=== PATIENT | female | born 1945 | race Caucasian/White ===

== ENCOUNTER → 2016-10-02 | Outpatient (CLI) | payer OTHER ==
[2016-10-02 13:52] LABS: BASO % 0.8 %; BASO ABS # 0.04 K/uL (0-0.2); COMPLETE YES; EOS % 1.1 %; LYMPH ABS # 1.49 K/uL (1.2-3.4); MEAN CELL VOLUME 91.1 fL (80-100); MEAN CORPUSCULAR HEMOGLOBIN 29.1 pg (25-34); MEAN PLATELET VOLUME 10.4 fL (7.4-10.4); MONO % 8.6 %; NEUT % 61.5 %; PLATELET COUNT 296 K/uL (130-400); WHITE BLOOD COUNT 5.33 K/uL (4.8-10.8)
[2016-10-02 14:58] LABS: ALT/SGPT 33 U/L (12-78); AST/SGOT 22 U/L (15-37); BLOOD UREA NITROGEN 16 mg/dl (7-18); BUN/CREATININE RATIO 20.8 (10-20); CALCIUM 9.3 mg/dl (8.5-10.1); CARBON DIOXIDE 26 mmol/L (21-32); CHLORIDE 107 mmol/L (98-107); CREATININE 0.77 mg/dl (0.60-1.20); GLUCOSE 101 mg/dl (70-99); POTASSIUM 3.8 mmol/L (3.5-5.1); SODIUM 142 mmol/L (136-145)
[2016-10-02 15:01] LABS: ALKALINE PHOSPHATASE 85 U/L (45-117); CHOLESTEROL 156 mg/dl (0-200); CHOLESTEROL/HDL RATIO 2.9; HDL CHOLESTEROL 53 mg/dl; LDL CHOLESTEROL CALCULATED 84 mg/dl; TRIGLYCERIDES 95 mg/dl (0-150); VERY LOW DENSITY LIPOPROT CALC 19 mg/dl
== END | disposition home or self-care (01) ==
LOC: C.LABMFLN 10:29
PROVIDERS: ATTEND Family Medicine
DX: E11.59 Type 2 diabetes mellitus with other circulatory complications (principal); E78.5 Hyperlipidemia, unspecified; I10 Essential (primary) hypertension

== ENCOUNTER → 2016-11-22 | Outpatient (CLI) | payer OTHER | END | disposition home or self-care (01) | LOC: C.LABMFLN 11:27 | PROVIDERS: ATTEND Family Medicine | DX: R35.0 Frequency of micturition (principal) ==

== ENCOUNTER 2019-10-07 07:49 | Inpatient (IN) ==
[2019-10-07] MEDS: HYDROmorphone INJ 0.5 MG/0.5 ML SYR IV PRN ×4 (08:17→20:01)
[2019-10-07] MEDS ORDERED: ONDANSETRON INJ 2 MG/ML 2 ML VIAL IV STA (08:26)
[2019-10-07 08:31] LABS: Basophils # (auto) 0.06 K/uL (0-0.2); Basophils % (auto) 0.6 %; Eosinophils % (auto) 1.9 %; Hematocrit (blood only) 37.8 % (37-47); Hemoglobin 12.6 g/dL (12.0-16.0); Immature Granulocytes # (auto) 0.12 K/uL (0.00-0.02); Immature Granulocytes % (auto) 1.2 %; Lymphocytes # (auto) 2.53 K/uL (1.2-3.4); Lymphocytes % (auto) 24.3 %; Mean Corpuscular Hemoglobin 30.7 pg (25-34); Mean Corpuscular Hgb Conc 33.3 g/dL (32-36); Mean Platelet Volume 10.1 fL (7.4-10.4); Monocytes # (auto) 0.72 K/uL (0.11-0.59); Monocytes % (auto) 6.9 %; Neutrophils # (auto) 6.78 K/uL (1.4-6.5); Neutrophils % (auto) 65.1 %; Platelet Count 372 K/uL (130-400); RDW Coefficient of Variation 13.9 % (11.5-14.5); RDW Standard Deviation 46.2 fL (36.4-46.3); Red Blood Count 4.11 M/uL (4.2-5.4); White Blood Count 10.41 K/uL (4.8-10.8)
[2019-10-07 08:41] LABS: INR 0.9 (0.9-1.1); Partial Thromboplastin Ratio 0.8; Partial Thromboplastin Time 23.4 Seconds (21.0-31.0)
[2019-10-07 08:48] LABS: BUN Creatinine Ratio 23.4 (10-20); Calcium 9.7 mg/dl (8.5-10.1); Creatinine Clr Calc Pharmacy 61.8 ml/min; Est GFR (African American) 90.8; Est GFR (Non-African American) 78.4; Potassium 4.3 mmol/L (3.5-5.1)
[2019-10-07 08:49] LABS: Appearance Urine Cloudy (Clear); Bilirubin Urine Negative (Negative); Blood Urine Negative (Negative); Color Urine Yellow; Glucose Urine UA Negative (Negative); Ketones Urine Negative (Negative); Leukocyte Esterase Urine 3+ (Negative); Nitrite Urine Negative (Negative); Protein Urine Negative (Negative); Specific Gravity Urine 1.017 (1.000-1.030); Urobilinogen Urine Negative (Negative); WBC Urine Automated >30 /hpf (0-5)
[2019-10-07] MEDS ORDERED: METOCLOPRAMIDE HCL INJ 5 MG/ML 2 ML VIAL IV STA (08:50)
[2019-10-07] MEDS ORDERED: ACETAMINOPHEN 1,000 MG/100 ML VIAL IV STA (08:50)
[2019-10-07 09:19] LABS: Bacteria Urine Automated 1+ (Negative); Epithelial Cell Urine Auto 20-30 /lpf (0-5); Mucus Urine Present (None Prsent)
--- NOTE | 2019-10-07 09:23 | XRay Report ---
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 There is an acute proximal left fem ur fracture as below. Chondrocalcinosis of the hips and pubic symphysis. Demineralized appearance of the bones. The bony pelvis appears intact. FEMUR: There is an acute intertrochanteric fracture of the left femur with comminution and fracture separati on measuring up to 10 mm. There is mild impaction with minimal apex superolateral angulation. Moderat e soft tissue swelling. The mid and distal femur appears intact. Osteoarthritis and chondrocalcinosis of the knee. Arterial calcifications. IMPRESSION: Acute comminuted and slightly displaced intratrochanteric fracture of the left femur. ACT 112: Negative or not required by law. The above report was generated using voice recognition software. It may contain grammatical, syntax o r spelling errors. Electronically signed by: Errol Salcedo M.D. 10/07/2019 9:22 AM
[2019-10-07] MEDS ORDERED: PROMETHAZINE HCL 12.5 MG in SODIUM CHLORIDE 0.9% 50 ML IV STA (09:38)
[2019-10-07] MEDS ORDERED: bisacodyL 10 MG SUPP PR PRN (09:43)
[2019-10-07] MEDS ORDERED: MoRPHine SULFATE 4 MG/ML 1 ML CARP\\VIAL IV PRN (09:43)
[2019-10-07] MEDS ORDERED: ONDANSETRON INJ 2 MG/ML 2 ML VIAL IV PRN (09:43)
[2019-10-07] MEDS ORDERED: PROMETHAZINE 12.5 MG/50.5 ML NSS IV ONE (09:43)
[2019-10-07] MEDS ORDERED: NALOXONE HCL 0.4 MG/1 ML VIAL/CARP IV PRN (09:43)
[2019-10-07] MEDS ORDERED: MAGNESIUM HYDROXIDE SUSP 30 ML UDC PO PRN (09:43)
[2019-10-07] MEDS ORDERED: ALBUTEROL HFA 8 GM INHALER INH PRN (09:51)
--- NOTE | 2019-10-07 10:08 | History & Physical Report ---
Date of Service October 07, 2019 Assessment & Plan (1) Closed left femoral fracture: -Admit to med surg with tele -Pt has been off plavix for 1 week per dc summary from [facility] to have stopped on 09/29 to complete 21 days. Hold subcu heparin as she was on this at [facility]. -Continue baby aspirin -Hip fracture order set completed -Ortho consult, Dr. Obrien -Allow diet today, do not anticipate surgery, make n.p.o. after midnight -Pain management, bowel regimen ordered -PT/OT consults to be placed after surgery -Follow am CBC to monitor for acute blood loss (2) History of CVA with residual deficit: -Occurred on 09/09/2019 -Continue baby aspirin for now -Left-sided residual deficit, using walker for ambulation, will require PT/OT after surgery (3) Hypertension: -Continue losartan 75 mg daily, first dose now as did not get morning meds (4) Hyperlipidemia: -Continue statin therapy (5) Osteopenia: -Check vitamin D level (6) Asthma: -Continue Symbicort, Breo fluticasone nasal spray (7) Anxiety: -Continue Lexapro 10 mg daily as well as lorazepam for anxiety as per [employer] meds (8) DVT prophylaxis: -SCDs, teds on unaffected leg CODE STATUS: Full code Disposition: Patient from [facility], likely to remain in the hospital x2 days, will need placement for rehab upon discharge History of Present Illness Primary Care Provider: [facility] This is a 74 yo F with PMHx of HTN, HLD, embolic stroke on 09/09/2019 involving left supraclinoid ICA, who presented with lightheadedness and bilateral leg weakness to [facility]. She was placed on heparin subcu, Plavix x21 days and baby aspirin for life on discharge which was 09/13/2019. She finished Plavix on 09/30/2019 per discharge summary from OSH. She had a residual left lower extremity weakness. Has been ambulating with a walker doing well with PT/OT at [facility]. This morning, pt was getting ready to go home today packing her things when she missed stepped and went down onto her left side and broke the left femur. She denies any LOC, lightheadedness, dizziness, did not injure any other part of her body or hit her head. Allergies Allergy/AdvReac Type Severity Reaction Status Date / Time celecoxib [From Celebrex] Allergy Verified 10/07/19 08:15 Home Medications Home Medications Medication Instructions Recorded Confirmed Type budesonide-formoterol HFA 160 2 puffs INH BID #10.2 gm 10/09/18 10/07/19 Rx mcg-4.5 mcg/actuation aerosol inhaler atorvastatin 40 mg tablet 40 mg PO DAILY #90 tab 06/23/19 10/07/19 Rx acetaminophen 325 mg PO QID 10/07/19 10/07/19 History albuterol sulfate 1 puffs INHALATION Q4H PRN 10/07/19 10/07/19 History aspirin 81 mg PO QAM 10/07/19 10/07/19 History bisacodyl 10 mg WV DAILY PRN 10/07/19 10/07/19 History docusate sodium 100 mg PO BID PRN 10/07/19 10/07/19 History escitalopram oxalate 10 mg PO DAILY 10/07/19 10/07/19 History fluticasone furoate-vilanterol 1 inh INHALATION DAILY 10/07/19 10/07/19 History [Breo Ellipta] fluticasone propionate [Flonase 2 spray INTRANASAL DAILY 10/07/19 10/07/19 History Allergy Relief] heparin (porcine) 5,000 unit SUBCUT Q8H 10/07/19 10/07/19 History loperamide 2 mg PO Q2H PRN 10/07/19 10/07/19 History lorazepam 0.5 mg PO TID PRN 10/07/19 10/07/19 History lorazepam 1 mg PO HS PRN 10/07/19 10/07/19 History losartan [Cozaar] 75 mg PO DAILY 10/07/19 10/07/19 History meclizine 25 mg PO TID PRN 10/07/19 10/07/19 History melatonin 3 mg PO HS 10/07/19 10/07/19 History oxycodone 5 mg PO ONCE 10/07/19 10/07/19 History polyethylene glycol 3350 [Miralax] 17 g PO QDL PRN 10/07/19 10/07/19 History potassium chloride 20 meq PO BID 10/07/19 10/07/19 History sennosides-docusate sodium 1 tab-cap PO QDL PRN 10/07/19 10/07/19 History [Senokot-S] sodium phosphates [Fleet Enema] 133 ml W[place] DAILY PRN 10/07/19 10/07/19 History Past Med/Surg History Medical History Asthma (Chronic) Benign colonic polyp (Chronic) Cystocele, midline (Chronic) Disc degeneration, lumbar (Chronic) Hyperlipidemia (Chronic) Hypertension (Chronic) Osteopenia (Chronic) Surgical History History of tooth extraction S/P colonoscopy Family History Mother Diabetes Hypertension Myocardial infarction Sister Diabetes Denies family history of Ovarian cancer Prostate cancer Breast cancer Colorectal cancer Social History Preferred Language: Macanese Communication Ability: Effective Visual Impairment: Partially Limited Hearing Ability: Normal Baseball Hand Sewer Required: No Beliefs That Will Affect Care: None marital status: Current Living Situation: Rehab Current Living Situation Comment: [facility] current occupational status: retired Other Information That Helps Us Care for You: No Feels Safe at Home: Yes Safety Concerns: Feels Safe At This Time Smoking Status: Never smoker Second Hand Exposure: Yes ; Hx Alcohol Use: Yes Alcohol type: wine Alcohol Intake Frequency: Holidays/Sp ecial Occasions Hx Substance Use: No Childhood Exposure to Second-Hand Smoke: Yes caffeine: Yes (coffee, diet soda) during the past year weight has: remained stable Dental Care, Regularly: Yes Physical Activity Frequency: Daily Seatbelt Use: always Sunscreen Use: Yes Do you think of yourself as: straight/heterosexual Review of Systems Review of Systems: Constitutional: No fever, sweats or chills Eyes: No diplopia, no worsening or blurred vision ENT: normal hearing, no trouble swallowing Respiratory: No cough, sputum, dyspnea at rest or on exertion Cardiovascular: No chest pain, tightness or palpitations Abdomen: No pain, + nausea, no vomiting, diarrhea or constipation Musculoskeletal: No joint pain, calf pain, swelling Neurologic: No weakness, numbness/tingling, or balance problems Psychiatric: No anxiety or depression Skin: No rash or itch Physical Exam Physical Exam: General: awake, alert, no apparent distress Head: Normocephalic, atraumatic ENT: PERRL, EOMI, no pharyngeal exudate, mucous membranes moist Chest: Clear to auscultation, on room air, no adventitious breath sounds Cardiac: Regular rate and rhythm, no murmur, no JVD, normal peripheral pulses, good capillary refill Abdominal: NABS x 4 quadrants, soft, nondistended, nontender to palpation, no rebound, guarding or tenderness Extremities: RLE shortened and externally rotated, area of ecchymosis over the left knee appears old, no peripheral edema or erythema, calfs nontender to palpation Psych: Normal mood and affect Neuro: AAO x 3, strength intact bilaterally in upper extremities and rated 5/5, can wiggle toes, no gross motor deficits, speech is clear, no peripheral sensory deficits Skin: no rash or erythema Results & Data Results & Data ([facility]) Vital Signs (Past 12 Hours) Vital Signs Temp Pulse Resp BP Pulse Ox 10/07/19 10:00 96 H 21 179/75 H 98 10/07/19 09:30 100 H 15 181/88 H 93 10/07/19 09:03 76 17 168/90 H 95 10/07/19 09:00 90 19 189/77 H 95 10/07/19 08:40 84 17 180/76 H 96 10/07/19 08:30 78 16 179/67 H 92 10/07/19 07:55 37.0 C 79 18 188/77 H 97 Diagnostic Findings XR pelvis 1-2V routine, XR femur LT 2V routine HISTORY: 74 years-old Female Pt c/o left hip fracture acute left hip pain with fracture COMPARISON: None TECHNIQUE: AP view of the pelvis with 2 views of the left femur FINDINGS: PELVIS: 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 There is an acute proximal left femur fracture as below. Chondrocalcinosis of the hips and pubic symphysis. Demineralized appearance of the bones. The bony pelvis appears intact. FEMUR: There is an acute intertrochanteric fracture of the left femur with comminution and fracture separation measuring up to 10 mm. There is mild impaction with minimal apex superolateral angulation. Moderate soft tissue swelling. The mid and distal femur appears intact. Osteoarthritis and chondrocalcinosis of the knee. Arterial calcifications. IMPRESSION: Acute comminuted and slightly displaced intratrochanteric fracture of the left femur. ECG Additional Comments: 07-OCT-2019 08:07:43 [facility]-EDSTAT ROUTINE RETRIEVAL Poor data quality, interpretation may be adversely affected Normal sinus rhythm Normal ECG No previous ECGs available 25mm/s 10mm/mV 150Hz 9.0.9 12SL 241 KIMBERLEE: 10 Referred by: ED Unconfirmed Vent. rate 79 BPM WV interval 144 ms QRS duration 88 ms QT/QTc 372/426 ms P-R-T axes 77 29 46 Code Status & VTE Plan Code Status Full code-discussed with the patient at bedside VTE Prophylaxis Plan VTE Prophylaxis will be ordered: Yes Supervising Physician Co-Signing Physician Notes Attending Attestation and Admission Note: Pt seen/examined, chart reviewed, admission care plan d/w BILLIE De La Paz. I agree w/ the chaney components of her admission documentation except -- stroke was thrombotic and was right frontal-parietal region based on records from [facility] and [facility]. 74yo female with recent stroke leading to left arm/left leg weakness - now with mild residual left leg weakness - rehabbing at [facility] post-stroke. Was preparing for d/c to home from [facility] today. Had accidental fall with resulting left hip fracture. During my assessment only c/o severe left hip pain. PMH, PSH, allergies, meds, sochx, famhx - reviewed VSS stable but BPs elevated gen - looks uncomfortable due to pain but able to answer questions neck - no JVD mouth - MM dry heart - RRR, s1 s2 lungs - CTA b/l abd - soft NT BS+ ext - left leg shortened, slightly flexed, and slightly externally rotated; no edema, pulses 2+ b/l x-rays - left hip fracture labs acceptable ua with LE and some bacteria; culture sent A/P: 1. fall with resulting left hip fracture 2. recent right sided frontal-parietal lobe stroke 3. h/o asthma 4. HTN 5. possible UTI bedrest, pain control, gentle IVF, orthopedics consult, continue asa for secondary stroke prevention low threshold for antibiotics for UTI Lj Oconnor MD PG Care Time/CCT Total # of Minutes Spent Total Time Spent with Patient: Total time spent is greater than 50% in coordination of care (as documented) at patient's floor/unit and/or counseling patient: Coding Level of Care Code 09346 Initial Inpt Care Lvl 3 Diagnoses Closed left femoral fracture S72.92XA History of CVA with residual deficit I69.30 Hypertension I10 Hyperlipidemia E78.5 Osteopenia M85.80 Asthma J45.909 Anxiety F41.9 DVT prophylaxis Z29.9
[2019-10-07] MEDS ORDERED: LOSARTAN POTASSIUM 25 MG TAB PO SCH (10:30)
--- NOTE | 2019-10-07 10:41 | XRay Report ---
SINGLE VIEW CHEST CLINICAL HISTORY: Left hip fracture. Fall. FINDINGS: An AP, portable, supine chest radiograph is obtained. No prior studies are available for co mparison at the time of dictation. The examination is degraded by portable technique and patient rota tion. The cardiomediastinal silhouette is unremarkable noting atherosclerotic calcification of the t horacic aorta. The mitral annulus is densely calcified. The lungs and pleural spaces are clear. No pn eumothorax is seen. The skeletal structures are osteopenic. The bony thorax is grossly intact. IMPRESSION: No active disease in the chest. ACT 112: Negative or not required by law. Electronically signed by: Girma Wylie M.D. 10/07/2019 10:40 AM
[2019-10-07] MEDS: LACTATED RINGER'S 1,000 ML IV SCH (13:36)
--- NOTE | 2019-10-07 13:56 | Orthopedic Consultation ---
Date of Consultation October 07, 2019 Assessment & Plan (1) Closed left femoral fracture: I had discussions about the fracture with her at bedside. She is having a lot of pain in her hip and I recommended intramedullary nail fixation. She understands the risk benefits and alternatives to procedures like to proceed. Questions were answered and consents were signed. She will be n.p.o. past midnight tonight. We will get a COVID test on her. Her subcu heparin is currently being held. Present on Admission?: Yes History of Present Illness Reason for Consultation: Left intertrochanteric hip fracture Attending Physician: Lj Oconnor History of Present Illness Marcie is a pleasant 74-year-old female who suffered an embolic stroke about 4 weeks ago. She went to [facility] in [place] and was started on multiple anticoagulation medications. She was then sent to a rehab facility. She has some residual left-sided weakness but she was ambulating with a walker. Her status was improving and she was being ready to be discharged home. She was packing her things to go home when she fell and sustained a left intertrochanteric hip fracture. She came to [facility] emergency room where radiographs confirmed the fracture. She was admitted to the medical service. Orthopedics was consulted to evaluate and treat. She normally is an independent ambulator without assistance. She lives in a house with her . Allergies Allergy/AdvReac Type Severity Reaction Status Date / Time celecoxib [From Celebrex] Allergy Verified 10/07/19 08:15 Home Medications Home Medications Medication Instructions Recorded Confirmed Type budesonide-formoterol HFA 160 2 puffs INH BID #10.2 gm 10/09/18 10/07/19 Rx mcg-4.5 mcg/actuation aerosol inhaler atorvastatin 40 mg tablet 40 mg PO DAILY #90 tab 06/23/19 10/07/19 Rx acetaminophen 325 mg PO QID 10/07/19 10/07/19 History albuterol sulfate 1 puffs INHALATION Q4H PRN 10/07/19 10/07/19 History aspirin 81 mg PO QAM 10/07/19 10/07/19 History bisacodyl 10 mg GA DAILY PRN 10/07/19 10/07/19 History docusate sodium 100 mg PO BID PRN 10/07/19 10/07/19 History escitalopram oxalate 10 mg PO DAILY 10/07/19 10/07/19 History fluticasone furoate-vilanterol 1 inh INHALATION DAILY 10/07/19 10/07/19 History [Breo Ellipta] fluticasone propionate [Flonase 2 spray INTRANASAL DAILY 10/07/19 10/07/19 History Allergy Relief] heparin (porcine) 5,000 unit SUBCUT Q8H 10/07/19 10/07/19 History loperamide 2 mg PO Q2H PRN 10/07/19 10/07/19 History lorazepam 0.5 mg PO TID PRN 10/07/19 10/07/19 History lorazepam 1 mg PO HS PRN 10/07/19 10/07/19 History losartan [Cozaar] 75 mg PO DAILY 10/07/19 10/07/19 History meclizine 25 mg PO TID PRN 10/07/19 10/07/19 History melatonin 3 mg PO HS 10/07/19 10/07/19 History oxycodone 5 mg PO ONCE 10/07/19 10/07/19 History polyethylene glycol 3350 [Miralax] 17 g PO QDL PRN 10/07/19 10/07/19 History potassium chloride 20 meq PO BID 10/07/19 10/07/19 History sennosides-docusate sodium 1 tab-cap PO QDL PRN 10/07/19 10/07/19 History [Senokot-S] sodium phosphates [Fleet Enema] 133 ml [place] DAILY PRN 10/07/19 10/07/19 History Patient History Medical History Asthma (Chronic) Benign colonic polyp (Chronic) Cystocele, midline (Chronic) Disc degeneration, lumbar (Chronic) Hyperlipidemia (Chronic) Hypertension (Chronic) Osteopenia (Chronic) Surgical History History of tooth extraction S/P colonoscopy Family History Mother Diabetes Hypertension Myocardial infarction Sister Diabetes Denies family history of Ovarian cancer Prostate cancer Breast cancer Colorectal cancer Social History Preferred Language: Turkmen Communication Ability: Effective Visual Impairment: Partially Limited Hearing Ability: Normal Auto Accessories Installer Required: No Beliefs That Will Affect Care: None marital status: Current Living Situation: Rehab Current Living Situation Comment: [facility] current occupational status: retired Other Information That Helps Us Care for You: No Feels Safe at Home: Yes Safety Concerns: Feels Safe At This Time Smoking Status: Never smoker Second Hand Exposure: Yes ; Hx Alcohol Use: Yes Alcohol type: wine Alcohol Intake Frequency: Holidays/Special Occasions Hx Substance Use: No Childhood Exposure to Second-Hand Smoke: Yes caffeine: Yes (coffee, diet soda) during the past year weight has: remained stable Dental Care, Regularly: Yes Physical Activity Frequency: Daily Seatbelt Use: always Sunscreen Use: Yes Do you think of yourself as: straight/heterosexual Review of Systems Review of Systems: All systems reviewed & are unremarkable except as noted in HPI & below Physical Exam Musculoskeletal: On physical examination of the left hip, there are no abrasions lesions or lacerations of the skin. Her left leg is shortened and externally rotated. Results & Data ([facility]) Vital Signs (Past 12 Hours) Vital Signs Temp Pulse Resp BP BP BP Pulse Ox 10/07/19 13:16 37 C 20 206/80 H 189/90 H 98 10/07/19 12:45 114 H 10/07/19 12:04 105 H 17 162/89 H 96 10/07/19 11:30 104 H 17 163/66 H 93 10/07/19 11:01 100 H 15 179/69 H 91 10/07/19 10:30 107 H 15 141/64 H 92 10/07/19 10:00 96 H 21 179/75 H 98 10/07/19 09:30 100 H 15 181/88 H 93 10/07/19 09:03 76 17 168/90 H 95 10/07/19 09:00 90 19 189/77 H 95 10/07/19 08:40 84 17 180/76 H 96 10/07/19 08:30 78 16 179/67 H 92 10/07/19 07:55 37.0 C 79 18 188/77 H 97 Laboratory Results H & H 10/07/19 Range/Units 08:17 Hgb 12.6 (12.0-16.0) g/dL Hct 37.8 (37-47) % Coagulation 06//20 Range/Units 08:17 INR 0.9 (0.9-1.1) Diagnostic Findings X-rays of the left hip do show a displaced left intertrochanteric hip fracture. PG Care Time/CCT Total # of Minutes Spent Total Time Spent with Patient: Total time spent is greater than 50% in coordination of care (as documented) at patient's floor/unit and/or counseling patient: Coding Level of Care Code 13290 Inpt Consult Level 4 Diagnoses Closed left femoral fracture S72.92XA
[2019-10-07] MEDS: ACETAMINOPHEN 500 MG TAB PO SCH ×2 (13:58→21:24)
--- NOTE | 2019-10-07 14:41 | Emergency Department Note ---
History of Present Illness General Chief complaint: Fall Time Seen by Provider: 10/07/19 07:50 Source: patient, EMS, RN notes reviewed and old records reviewed Mode of arrival: EMS Limitations: no limitations History of Present Illness Provider complaint: Fall, hip pain Onset (ago): hour(s) 1 Location: pelvis Radiation: extremity Severity: moderate Pain Consistency: + constant Maximum Pain Intensity: 4 Current Pain Intensity: 4 Quality: + aching Relieved By: + immobilization Exacerbated By: + movement Associated symptoms: + denies other symptoms; no chest pain, no fever/chills, no headaches, no nausea/vomiting and no shortness of breath Treatments prior to arrival: none This is a 74-year-old female who is at her rehabilitation facility and was being discharged today. The patient reports she was getting up to change and use the bathroom when she lost her balance and fell landing on her left hip. Patient has been unable to move the hip since that time. EMS was summoned and brought the patient to the emergency department. She describes the pain as a dull ache. She has not taken anything for the pain and is requesting pain medication here. Home Medications Home Medications Medication Instructions Recorded Confirmed Type budesonide-formoterol HFA 160 2 puffs INH BID #10.2 gm 10/09/18 10/07/19 Rx mcg-4.5 mcg/actuation aerosol inhaler atorvastatin 40 mg tablet 40 mg PO DAILY #90 tab 06/23/19 10/07/19 Rx acetaminophen 325 mg PO QID 10/07/19 10/07/19 History albuterol sulfate 1 puffs INHALATION Q4H PRN 10/07/19 10/07/19 History aspirin 81 mg PO QAM 10/07/19 10/07/19 History bisacodyl 10 mg NV DAILY PRN 10/07/19 10/07/19 History docusate sodium 100 mg PO BID PRN 10/07/19 10/07/19 History escitalopram oxalate 10 mg PO DAILY 10/07/19 10/07/19 History fluticasone furoate-vilanterol 1 inh INHALATION DAILY 10/07/19 10/07/19 History [Breo Ellipta] fluticasone propionate [Flonase 2 spray INTRANASAL DAILY 10/07/19 10/07/19 History Allergy Relief] heparin (porcine) 5,000 unit SUBCUT Q8H 10/07/19 10/07/19 History loperamide 2 mg PO Q2H PRN 10/07/19 10/07/19 History lorazepam 0.5 mg PO TID PRN 10/07/19 10/07/19 History lorazepam 1 mg PO HS PRN 10/07/19 10/07/19 History losartan [Cozaar] 75 mg PO DAILY 10/07/19 10/07/19 History meclizine 25 mg PO TID PRN 10/07/19 10/07/19 History melatonin 3 mg PO HS 10/07/19 10/07/19 History oxycodone 5 mg PO ONCE 10/07/19 10/07/19 History polyethylene glycol 3350 [Miralax] 17 g PO QDL PRN 10/07/19 10/07/19 History potassium chloride 20 meq PO BID 10/07/19 10/07/19 History sennosides-docusate sodium 1 tab-cap PO QDL PRN 10/07/19 10/07/19 History [Senokot-S] sodium phosphates [Fleet Enema] 133 ml NV DAILY PRN 10/07/19 10/07/19 History Allergies Allergy/AdvReac Type Severity Reaction Status Date / Time celecoxib [From Celebrex] Allergy Verified 10/07/19 08:15 Past Med/Surg History Medical History Asthma (Chronic) Benign colonic polyp (Chronic) Cystocele, midline (Chronic) Disc degeneration, lumbar (Chronic) Hyperlipidemia (Chronic) Hypertension (Chronic) Osteopenia (Chronic) Surgical History History of tooth extraction S/P colonoscopy Status post-operative repair of hip fracture (~09/2019) Family History Mother Diabetes Hypertension Myocardial infarction Sister Diabetes Denies family history of Ovarian cancer Prostate cancer Breast cancer Colorectal cancer Social History Preferred Language: Malay Communication Ability: Effective Visual Impairment: Partially Limited Hearing Ability: Normal Jockey Room Custodian Required: No Beliefs That Will Affect Care: None marital status: Current Living Situation: Rehab Current Living Situation Comment: [facility] current occupational status: retired Other Information That Helps Us Care for You: No Feels Safe at Home: Yes Safety Concerns: Feels Safe At This Time Smoking Status: Never smoker Second Hand Exposure: Yes ; Hx Alcohol Use: Yes Alcohol type: wine Alcohol Intake Frequency: Holidays/Special Occasions Hx Substance Use: No Childhood Exposure to Second-Hand Smoke: Yes caffeine: Yes (coffee, diet soda) during the past year weight has: remained stable Dental Care, Regularly: Yes Physical Activity Frequency: Daily Seatbelt Use: always Sunscreen Use: Yes Do you think of yourself as: straight/heterosexual Review of Systems A total of 10 systems reviewed and were otherwise negative Physical Exam Vital Signs Vital Signs - 24 hr 10/07/19 07:55 10/07/19 08:30 10/07/19 08:40 Temperature 37.0 C Temperature Source Oral Pulse Rate 79 78 84 Pulse Rate from SpO2 Sensor 78 85 Pulse Rhythm Regular Respiratory Rate 18 16 17 Respiratory Effort / Characteristics Non-Labored Spontaneous Respiratory Depth Normal Respiratory Pattern Regular Blood Pressure 188/77 H 179/67 H 180/76 H Blood Pressure Mean 114 121 110 Pulse Oximetry 97 92 96 Oxygen Delivery Method Room Air Sepsis Recent Fever Within 48 Hours No Sepsis New/Unexplained Change in Mental Status No Sepsis Action Taken by Nursing No Action Required 10/07/19 09:00 10/07/19 09:03 10/07/19 09:30 Temperature Temperature Source Pulse Rate 90 76 100 H Pulse Rate from SpO2 Sensor 88 76 Pulse Rhythm Respiratory Rate 19 17 15 Respiratory Effort / Characteristics Respiratory Depth Respiratory Pattern Blood Pressure 189/77 H 168/90 H 181/88 H Blood Pressure Mean 143 115 128 Pulse Oximetry 95 95 93 Oxygen Delivery Method Sepsis Recent Fever Within 48 Hours Sepsis New/Unexplained Change in Mental Status Sepsis Action Taken by Nursing VITAL SIGNS - Vital signs and nursing notes were reviewed. GENERAL - 74-year-old female appearing stated age who is in no acute distress. Communicates well with provider and answers questions appropriately. SKIN - Without rashes. HEAD - NC/AT. EYES - PERRL with EOMI bilaterally. Sclera anicteric. Palpebral conjunctiva pink and moist with no injection noted. EARS - No deformities of external structures noted on gross examination bilaterally. No pain elicited with palpation of the tragus bilaterally. External auditory canals without discharge or otorrhea. Tympanic membranes pearly moore without retraction or bulging. No fluid or purulent material visualized behind the TM. Handle of malleus, umbo, cone of light, pars tensa/flaccid all easily visualized. NOSE - Midline and without cyanosis. No epistaxis or purulent drainage noted. Septum midline without deviation or septal hematoma noted. MOUTH/OROPHARYNX - Without perioral cyanosis. Buccal mucosa pink and moist and without leukoplakia. Tongue midline with equal elevation of palate bilaterally. No tonsillar hypertrophy, erythema, or exudates noted. dentition noted. NECK - Neck with FROM. Supple to palpation. lymphadenopathy noted. No nuchal rigidity. LUNGS - Chest wall symmetric without accessory muscle use, intercostals retractions, or central cyanosis. Normal vesicular breath sounds CTA B/L. No wheezes, rales, or rhonchi appreciated. CARDIAC - RRR with S1/S2. No murmur, rubs, or gallops appreciated. ABDOMEN - Abdominal contour without pulsations or visible masses. BS normoactive all four quadrants. No tenderness, palpable masses, hepatosplenomegaly, or ascites noted. EXTREMITIES - No clubbing or peripheral cyanosis. No pretibial edema present. +3/5 radial, posterior tibial, and dorsalis pedis pulses palpated throughout. Pt unable to move left hip NEUROLOGIC - Cranial nerves II through XII grossly intact. Sensory intact to light touch throughout. Patellar reflexes +2/4. PSYCH - A&Ox3 and cooperates fully with examiner. Pt is very pleasant and interacts well with examiner. Course Administered Medications Acetaminophen (Tylenol) 1,000 mg PO Q8H [facility] Stop: 11/06/19 13:59 Last Admin: 10/09/19 14:18 Dose: 1,000 mg Documented by: [id number] Admin: 10/09/19 06:29 Dose: 1,000 mg Documented by: [id number] Admin: 10/08/19 22:08 Dose: 1,000 mg Documented by: [id number] Admin: 10/08/19 19:27 Dose: Not Given Documented by: [id number] Admin: 10/08/19 06:22 Dose: 1,000 mg Documented by: [id number] Admin: 10/07/19 21:24 Dose: 1,000 mg Documented by: [id number] Admin: 10/07/19 13:58 Dose: Not Given Documented by: [id number] Aspirin (Ecotrin Ectab) 81 mg PO QAM [facility] Stop: 11/07/19 08:59 Last Admin: 10/09/19 09:24 Dose: 81 mg Documented by: [id number] Admin: 10/08/19 07:51 Dose: Not Given Documented by: [id number] Atorvastatin Calcium (Lipitor) 40 mg PO DAILY [facility] Stop: 11/07/19 08:59 Last Admin: 10/09/19 09:24 Dose: 40 mg Documented by: [id number] Admin: 10/08/19 07:57 Dose: 40 mg Documented by: [id number] Escitalopram Oxalate (Lexapro Tab) 10 mg PO DAILY [facility] Stop: 11/07/19 08:59 Last Admin: 10/09/19 09:25 Dose: 10 mg Documented by: [id number] Admin: 10/08/19 07:57 Dose: 10 mg Documented by: [id number] Fluticasone Propionate (Flonase) 2 sprays TASHI DAILY [facility] Stop: 11/07/19 08:59 Last Admin: 10/09/19 09:23 Dose: 2 sprays Documented by: [id number] Admin: 10/08/19 07:57 Dose: 2 sprays Documented by: [id number] Fluticasone/Vilanterol (Breo Ellipta 200/25 Mcg Inh) 1 puffs INH DAILY [facility] Stop: 11/07/19 08:59 Last Admin: 10/09/19 09:22 Dose: 1 puffs Documented by: [id number] Admin: 10/08/19 07:57 Dose: 1 puffs Documented by: [id number] Lactated Ringer's (Lr) 1,000 mls @ 80 mls/hr IV .[id number] [facility] Stop: 11/07/19 17:59 Last Admin: 10/09/19 06:29 Dose: 80 mls/hr Documented by: [id number] Infusion: 10/09/19 06:29 Dose: 80 mls/hr Documented by: [id number] Admin: 10/08/19 19:49 Dose: 80 mls/hr Documented by: [id number] Ketorolac Tromethamine (Toradol) 15 mg IV Q6H PRN PRN Reason: Pain Stop: 10/13/19 00:42 Last Admin: 10/09/19 10:00 Dose: 15 mg Documented by: [id number] Admin: 10/09/19 03:50 Dose: 15 mg Documented by: [id number] Admin: 10/08/19 20:03 Dose: 15 mg Documented by: [id number] Lorazepam (Ativan) 0.5 mg PO TID PRN PRN Reason: Anxiety Stop: 11/06/19 09:50 Last Admin: 10/09/19 09:20 Dose: 0.5 mg Documented by: [id number] Admin: 10/08/19 10:04 Dose: 0.5 mg Documented by: [id number] Lorazepam (Ativan) 1 mg PO HS PRN PRN Reason: Sleep Stop: 11/06/19 12:42 Last Admin: 10/07/19 21:24 Dose: 1 mg Documented by: [id number] Morphine Sulfate (Morphine Sulfate) 2 mg IV Q3H PRN PRN Reason: Pain Stop: 10/21/19 09:42 Last Admin: 10/09/19 00:14 Dose: 2 mg Documented by: [id number] Admin: 10/08/19 11:25 Dose: 2 mg Documented by: [id number] Admin: 10/08/19 08:13 Dose: 2 mg Documented by: [id number] Admin: 10/08/19 01:12 Dose: 2 mg Documented by: [id number] Admin: 10/07/19 22:44 Dose: 2 mg Documented by: [id number] Ondansetron HCl (Zofran) 4 mg IV Q4H PRN PRN Reason: Nausea And Vomiting Stop: 11/06/19 09:42 Last Admin: 10/07/19 20:00 Dose: 4 mg Documented by: [id number] Oxycodone HCl (Roxicodone Immediate Rel) 5 mg PO Q4H PRN PRN Reason: MODERATE Pain (Scale 4,5,6) Stop: 10/21/19 09:42 Last Admin: 10/09/19 12:31 Dose: 5 mg Documented by: [id number] Admin: 10/08/19 21:59 Dose: 5 mg Documented by: [id number] Admin: 10/08/19 09:40 Dose: 5 mg Documented by: [id number] Admin: 10/08/19 05:53 Dose: 5 mg Documented by: [id number] Admin: 10/07/19 23:19 Dose: 5 mg Documented by: [id number] Admin: 10/07/19 17:30 Dose: 5 mg Documented by: [id number] Potassium Chloride (Klor-Con M20) 20 meq PO BID [facility]UL[facility] Stop: 11/06/19 20:59 Last Admin: 10/09/19 09:20 Dose: Not Given Documented by: [id number] Admin: 10/08/19 22:06 Dose: Not Given Documented by: [id number] Admin: 10/08/19 07:50 Dose: Not Given Documented by: [id number] Admin: 10/07/19 20:03 Dose: Not Given Documented by: [id number] Senna/Docusate Sodium (Senokot S) 2 tab PO HS YULY Stop: 11/06/19 20:59 Last Admin: 10/08/19 22:05 Dose: Not Given Documented by: [id number] Admin: 10/07/19 20:03 Dose: Not Given Documented by: [id number] Discontinued Medications Bupivacaine HCl/Epinephrine Bitart (Bupivacaine 0.25%-Epi 1:[id number]) Confirm Administered Dose 30 ml .ROUTE .STK-MED ONE Stop: 10/08/19 14:43 Last Admin: 10/08/19 16:04 Dose: 20 ml Documented by: [id number] Cyclobenzaprine HCl (Flexeril) 5 mg PO ONE ONE Stop: 10/08/19 03:06 Last Admin: 10/08/19 04:02 Dose: 5 mg Documented by: [id number] Hydromorphone HCl (Dilaudid) 0.5 mg IV Q20M PRN PRN Reason: Severe Pain (Rating 7,8,9,10) Stop: 10/21/19 07:58 Last Admin: 10/07/19 20:01 Dose: 0.5 mg Documented by: [id number] Admin: 10/07/19 13:37 Dose: 0.5 mg Documented by: [id number] Admin: 10/07/19 10:46 Dose: 0.5 mg Documented by: [id number] Admin: 10/07/19 08:17 Dose: 0.5 mg Documented by: [id number] Acetaminophen (Ofirmev) 1,000 mg in 100 mls @ 400 mls/hr IV NOW STA Stop: 10/07/19 09:04 Last Infusion: 10/07/19 09:16 Dose: 0 mls/hr Documented by: [id number] Admin: 10/07/19 08:59 Dose: 400 mls/hr Documented by: [id number] Promethazine HCl 12.5 mg/ (Sodium Chloride) 50.5 mls @ 202 mls/hr IV NOW STA Stop: 10/07/19 09:52 Last Infusion: 10/07/19 10:52 Dose: 0 mls/hr Documented by: [id number] Admin: 10/07/19 09:46 Dose: 202 mls/hr Documented by: [id number] Lactated Ringer's (Lr) 1,000 mls @ 80 mls/hr IV .[id number] YULY Stop: 10/08/19 09:44 Last Infusion: 10/08/19 13:51 Dose: 0 mls/hr Documented by: [id number] Admin: 10/08/19 02:45 Dose: Not Given Documented by: [id number] Admin: 10/08/19 01:13 Dose: 80 mls/hr Documented by: [id number] Infusion: 10/08/19 01:13 Dose: 80 mls/hr Documented by: [id number] Admin: 10/07/19 13:36 Dose: 80 mls/hr Documented by: [id number] Cefazolin Sodium (Ancef 2000mg) 2,000 mg in 15 mls @ 3.75 mls/min IV PREOP ONE Stop: 10/08/19 15:52 Last Admin: 10/08/19 15:51 Dose: 3.75 mls/min Documented by: [id number] Ketorolac Tromethamine (Toradol) Confirm Administered Dose 15 mg .ROUTE .STK-MED ONE Stop: 10/08/19 01:06 Last Admin: 10/08/19 01:11 Dose: 15 mg Documented by: [id number] Losartan Potassium (Cozaar) 75 mg PO DAILY YULY Stop: 11/06/19 10:29 Last Admin: 10/07/19 14:49 Dose: Not Given Documented by: [id number] Metoclopramide HCl (Reglan) 10 mg IV NOW STA Stop: 10/07/19 08:51 Last Admin: 10/07/19 08:56 Dose: 10 mg Documented by: [id number] Morphine Sulfate (Morphine Sulfate) 2 mg IV Q2H PRN PRN Reason: Pain Stop: 10/21/19 09:42 Last Admin: 10/07/19 19:17 Dose: 2 mg Documented by: [id number] Admin: 10/07/19 16:04 Dose: 2 mg Documented by: [id number] Morphine Sulfate (Morphine Sulfate) 2 mg IV NOW STA Stop: 10/08/19 13:33 Last Admin: 10/08/19 13:36 Dose: 2 mg Documented by: [id number] Ondansetron HCl (Zofran) 4 mg IV NOW STA Stop: 10/07/19 08:27 Last Admin: 10/07/19 08:29 Dose: 4 mg Documented by: [id number] Promethazine HCl (Phenergan) Confirm Administered Dose 12.5 mg IV .STK-MED ONE Stop: 10/07/19 09:44 Last Admin: 10/07/19 09:46 Dose: Not Given Documented by: [id number] Medical Decision Making Differential Diagnosis Fracture, subluxation, dislocation, contusion, ligamentous injury, neurovascular, compartment syndrome, rhabdomyolysis, as well as other pathologies. Medical Records Attestation: I reviewed the patient's medical records. Home Medications Current Medication List: was personally reviewed by me Laboratory Data Attestation: I reviewed the patient's lab results. Result diagrams: 10/09/19 05:48 10/09/19 05:48 Lab Results 10/07/19 10/07/19 10/07/19 Range/Units 08:15 08:17 08:17 WBC 10.41 (4.8-10.8) K/uL RBC 4.11 L (4.2-5.4) M/uL Hgb 12.6 (12.0-16.0) g/dL Hct 37.8 (37-47) % MCV 92.0 (80-100) fL MCH 30.7 (25-34) pg MCHC 33.3 (32-36) g/dL RDW Std Deviation 46.2 (36.4-46.3) fL RDW Coeff of Cuco 13.9 (11.5-14.5) % Plt Count 372 (130-400) K/uL MPV 10.1 (7.4-10.4) fL Immature Gran % (Auto) 1.2 % Neut % (Auto) 65.1 % Lymph % (Auto) 24.3 % [place] % (Auto) 6.9 % Eos % (Auto) 1.9 % Baso % (Auto) 0.6 % Immature Gran # (Auto) 0.12 H (0.00-0.02) K/uL Neut # (Auto) 6.78 H (1.4-6.5) K/uL Lymph # (Auto) 2.53 (1.2-3.4) K/uL [place] # (Auto) 0.72 H (0.11-0.59) K/uL Eos # (Auto) 0.20 (0-0.5) K/uL Baso # (Auto) 0.06 (0-0.2) K/uL PT (9.0-12.0) Seconds INR (0.9-1.1) APTT (21.0-31.0) Seconds PTT Ratio Sodium (136-145) mmol/L Potassium (3.5-5.1) mmol/L Chloride (98-107) mmol/L Carbon Dioxide (21-32) mmol/L Anion Gap (3-11) BUN (7-18) mg/dl Creatinine (0.6-1.2) mg/dl Est Cr Clr Drug Dosing ml/min Est GFR ( Amer) Est GFR (Non-Af Amer) BUN/Creatinine Ratio (10-20) Glucose (70-99) mg/dl POC Glucose (70-99) mg/dl Calcium (8.5-10.1) mg/dl 25-OH Vitamin D Total (30-100) ng/ml Urine Color Yellow Urine Appearance Cloudy A (Clear) Urine pH 7.0 (4.5-7.5) Ur Specific [place] 1.017 (1.000-1.030) Urine Protein Negative (Negative) Urine Glucose (UA) Negative (Negative) Urine Ketones Negative (Negative) Urine Blood Negative (Negative) Urine Nitrite Negative (Negative) Urine Bilirubin Negative (Negative) Urine Urobilinogen Negative (Negative) Ur Leukocyte Esterase 3+ H (Negative) Urine WBC (Auto) >30 H (0-5) /hpf Urine RBC (Auto) 5-10 H (0-4) /hpf U Hyaline Cast (Auto) Not Reportable U Epithel Cells (Auto) 20-30 H (0-5) /lpf Urine Bacteria (Auto) 1+ H (Negative) Urine Mucus Present A (None Prsent) Blood Type A Positive Antibody Screen NEGATIVE 10/07/19 10/07/19 10/07/19 Range/Units 08:17 08:17 08:22 WBC (4.8-10.8) K/uL RBC (4.2-5.4) M/uL Hgb (12.0-16.0) g/dL Hct (37-47) % MCV (80-100) fL MCH (25-34) pg MCHC (32-36) g/dL RDW Std Deviation (36.4-46.3) fL RDW Coeff of Cuco (11.5-14.5) % Plt Count (130-400) K/uL MPV (7.4-10.4) fL Immature Gran % (Auto) % Neut % (Auto) % Lymph % (Auto) % [place] % (Auto) % Eos % (Auto) % Baso % (Auto) % Immature Gran # (Auto) (0.00-0.02) K/uL Neut # (Auto) (1.4-6.5) K/uL Lymph # (Auto) (1.2-3.4) K/uL [place] # (Auto) (0.11-0.59) K/uL Eos # (Auto) (0-0.5) K/uL Baso # (Auto) (0-0.2) K/uL PT 10.0 (9.0-12.0) Seconds INR 0.9 (0.9-1.1) APTT 23.4 (21.0-31.0) Seconds PTT Ratio 0.8 Sodium 137 (136-145) mmol/L Potassium 4.3 (3.5-5.1) mmol/L Chloride 104 (98-107) mmol/L Carbon Dioxide 26 (21-32) mmol/L Anion Gap 7.0 (3-11) BUN 18 (7-18) mg/dl Creatinine 0.76 (0.6-1.2) mg/dl Est Cr Clr Drug Dosing 61.8 ml/min Est GFR ( Amer) 90.8 Est GFR (Non-Af Amer) 78.4 BUN/Creatinine Ratio 23.4 H (10-20) Glucose 130 H (70-99) mg/dl POC Glucose (70-99) mg/dl Calcium 9.7 (8.5-10.1) mg/dl 25-OH Vitamin D Total 26.8 L (30-100) ng/ml Urine Color Urine Appearance (Clear) Urine pH (4.5-7.5) Ur Specific [place] (1.000-1.030) Urine Protein (Negative) Urine Glucose (UA) (Negative) Urine Ketones (Negative) Urine Blood (Negative) Urine Nitrite (Negative) Urine Bilirubin (Negative) Urine Urobilinogen (Negative) Ur Leukocyte Esterase (Negative) Urine WBC (Auto) (0-5) /hpf Urine RBC (Auto) (0-4) /hpf U Hyaline Cast (Auto) U Epithel Cells (Auto) (0-5) /lpf Urine Bacteria (Auto) (Negative) Urine Mucus (None Prsent) Blood Type Antibody Screen 10/07/19 Range/Units 08:43 WBC (4.8-10.8) K/uL RBC (4.2-5.4) M/uL Hgb (12.0-16.0) g/dL Hct (37-47) % MCV (80-100) fL MCH (25-34) pg MCHC (32-36) g/dL RDW Std Deviation (36.4-46.3) fL RDW Coeff of Cuco (11.5-14.5) % Plt Count (130-400) K/uL MPV (7.4-10.4) fL Immature Gran % (Auto) % Neut % (Auto) % Lymph % (Auto) % [place] % (Auto) % Eos % (Auto) % Baso % (Auto) % Immature Gran # (Auto) (0.00-0.02) K/uL Neut # (Auto) (1.4-6.5) K/uL Lymph # (Auto) (1.2-3.4) K/uL [place] # (Auto) (0.11-0.59) K/uL Eos # (Auto) (0-0.5) K/uL Baso # (Auto) (0-0.2) K/uL PT (9.0-12.0) Seconds INR (0.9-1.1) APTT (21.0-31.0) Seconds PTT Ratio Sodium (136-145) mmol/L Potassium (3.5-5.1) mmol/L Chloride (98-107) mmol/L Carbon Dioxide (21-32) mmol/L Anion Gap (3-11) BUN (7-18) mg/dl Creatinine (0.6-1.2) mg/dl Est Cr Clr Drug Dosing ml/min Est GFR ( Amer) Est GFR (Non-Af Amer) BUN/Creatinine Ratio (10-20) Glucose (70-99) mg/dl POC Glucose 164 H (70-99) mg/dl Calcium (8.5-10.1) mg/dl 25-OH Vitamin D Total (30-100) ng/ml Urine Color Urine Appearance (Clear) Urine pH (4.5-7.5) Ur Specific [place] (1.000-1.030) Urine Protein (Negative) Urine Glucose (UA) (Negative) Urine Ketones (Negative) Urine Blood (Negative) Urine Nitrite (Negative) Urine Bilirubin (Negative) Urine Urobilinogen (Negative) Ur Leukocyte Esterase (Negative) Urine WBC (Auto) (0-5) /hpf Urine RBC (Auto) (0-4) /hpf U Hyaline Cast (Auto) U Epithel Cells (Auto) (0-5) /lpf Urine Bacteria (Auto) (Negative) Urine Mucus (None Prsent) Blood Type Antibody Screen Imaging Data Radiologist's Impression: [place], [place] [phone] XRay Report Patient: NAIN MORAN Date: 10/07/19 MR#: [id number]: [address] [facility] Acct ID:[id number]: Date: 1945ty Zip: [place] [address] Age: 74Location: ED Sex: F Room/Bed: Att Phy:Diagnosis: FALL Aditi Phy: [facility] Date: 10/07/19 Fam Phy:Interpreting Phy: Girma Wylie MD Admit Phy: Ordering Phy: Gil Otero MD cc: ~ SINGLE VIEW CHEST CLINICAL HISTORY: Left hip fracture. Fall. FINDINGS: An AP, portable, supine chest radiograph is obtained. No prior studies are available for comparison at the time of dictation. The examination is degraded by portable technique and patient rotation. The cardiomediastinal silhouette is unremarkable noting atherosclerotic calcification of the thoracic aorta. The mitral annulus is densely calcified. The lungs and pleural spaces are clear. No pneumothorax is seen. The skeletal structures are osteopenic. The bony thorax is grossly intact. IMPRESSION: No active disease in the chest. ACT 112: Negative or not required by law. Electronically signed by: Girma Wylie M.D. 10/07/2019 10:40 AM Dictated: 10/07/19 1028 Transcribed: 10/07/[address] [facility] [place] [phone] XRay Report Patient: NAIN MORAN Date: 10/07/19 MR#: [id number]: [address] [facility] [address] Acct ID:[id number]: [facility] 1945[facility] Zip[facility] [place] [address] Age: 74Location: ED Sex: F Room/Bed: Att Phy:Diagnosis: FALL Aditi Phy: [facility] Date: 10/07/19 Fam Phy:Interpreting Phy: Anirudh Salcedo Admit Phy: Ordering Phy: Gil Otero MD cc: ~ 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 There is an acute proximal left femur fracture as below. Chondrocalcinosis of the hips and pubic symphysis. Demineralized appearance of the bones. The bony pelvis appears intact. FEMUR: There is an acute intertrochanteric fracture of the left femur with comminution and fracture separation measuring up to 10 mm. There is mild impaction with minimal apex superolateral angulation. Moderate soft tissue swelling. The mid and distal femur appears intact. Osteoarthritis and chondrocalcinosis of the knee. Arterial calcifications. IMPRESSION: Acute comminuted and slightly displaced intratrochanteric fracture of the left femur. ACT 112: Negative or not required by law. The above report was generated using voice recognition software. It may contain grammatical, syntax or spelling errors. Electronically signed by: Errol Salcedo M.D. 10/07/2019 9:22 AM Dictated: 10/07/19 0915 [place], [place] [phone] XRay Report Patient: NAIN MORAN Date: 10/07/19 MR#: [id number]: [address] [facility] Acct ID:[id number]: Date: 1945City Zip: [place] [address] Age: 74Location: ED Sex: F Room/Bed: Att Phy:Diagnosis: FALL Aditi Phy: [facility] Date: 10/07/19 Fam Phy:Interpreting Phy: Anirudh Salcedo Admit Phy: Ordering Phy: Gil Otero MD cc: ~ 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 There is an acute proximal left femur fracture as below. Chondrocalcinosis of the hips and pubic symphysis. Demineralized appearance of the bones. The bony pelvis appears intact. FEMUR: There is an acute intertrochanteric fracture of the left femur with comminution and fracture separation measuring up to 10 mm. There is mild impaction with minimal apex superolateral angulation. Moderate soft tissue swelling. The mid and distal femur appears intact. Osteoarthritis and chondrocalcinosis of the knee. Arterial calcifications. IMPRESSION: Acute comminuted and slightly displaced intratrochanteric fracture of the left femur. ACT 112: Negative or not required by law. The above report was generated using voice recognition software. It may contain grammatical, syntax or spelling errors. Electronically signed by: Errol Salcedo M.D. 10/07/2019 9:22 AM Dictated: 10/07/19914 Transcribed: 10/07/19914 ECG Data Attestation: I personally reviewed and interpreted this ECG as follows: Indication: + other (fall) Rate (beats per minute): 79 Rhythm: + normal sinus ECG Intervals/blocks: + Normal QT-c (426) ECG [place]: + Normal ECG ST segments: no ST depression and no ST elevation Comparison ECG Date: no prior available MDM Narrative This is a 74-year-old female who presents emergency department complaining of left-sided hip pain. X-rays are concerning for left hip fracture. Patient is slightly anemic. She was discussed with the hospitalist service as well as the orthopod senior product consultant. Patient was seen and evaluated as above in room A10. Review was performed of nursing notes and vital signs. I did review pertinent previous visits and patient history. After obtaining a thorough history and physical examination the above work up was performed. An order was placed for continuous cardiac monitoring. The monitor shows a rate of 93 with Normal Sinus rhythm. The patient was evaluated during the global COVID-19 pandemic, and that diagno sis was suspected/considered upon their initial presentation. Their evaluation, treatment and testing was consistent with current guidelines for patients who present with complaints or symptoms that may be related to COVID-19. Impression & Plan Fall, Closed hip fracture Discharge Plan Visit Data *Final* Discharge Date/Time: 10/07/19 12:04 Chief Complaint: Fall ED Provider: Gil Otero Discharge Problem: Fall, Closed hip fracture Patient Disposition: Admitted As Inpatient Discharge Instructions Interventions: ED Discharge Assessment Last Done: 10/07/19 12:04 Discharge Problem: Fall Qualifiers: Encounter type: initial encounter Qualified Code(s): W19.XXXA - Unspecified fall, initial encounter Closed hip fracture Qualifiers: Encounter type: initial encounter Laterality: left Qualified Code(s): S72.002A - Fracture of unspecified part of neck of left femur, initial encounter for closed fracture
[2019-10-07] MEDS: MoRPHine SULFATE 2 MG/ML CARP IV PRN ×3 (16:04→22:44)
--- NOTE | 2019-10-07 17:08 | Electrocardiogram Report ---
Test Reason : Blood Pressure : / mmHG Vent. Rate : 079 BPM Atrial Rate : 079 BPM P-R Int : 144 ms QRS Dur : 088 ms QT Int : 372 ms P-R-T Axes : 077 029 046 degrees QTc Int : 426 ms Poor data quality, interpretation may be adversely affected Normal sinus rhythm Normal ECG No previous ECGs available Confirmed by Du Ogden ([id number]) on 10/07/2019 5:08:38 PM Referred By: ED Confirmed By:Aleksandr Ogden
[2019-10-07] MEDS: OXYCODONE HCL IR 5 MG TAB (IMMEDIATE RELEASE) PO PRN ×2 (17:30→23:19)
[2019-10-07] MEDS: POTASSIUM CHLORIDE 20 MEQ TABCR PO SCH (20:03)
[2019-10-07] MEDS: DOCUSATE SODIUM/SENNA 50/8.6MG TAB PO SCH (20:03)
[2019-10-07] MEDS ORDERED: BUDESONIDE/FORMOTEROL FUMARATE 160/4.5 60 PUFFS/INHALER INH SCH (21:00)
[2019-10-07] MEDS: LORazepam 1 MG TAB PO PRN (21:24)
[2019-10-07] MEDS ORDERED: Nursing to Pharmacy Communication SCH (22:00)
[2019-10-08] MEDS ORDERED: KETOROLAC TROMETHAMINE 15 MG/ML VIAL ONE (01:05)
[2019-10-08] MEDS: MoRPHine SULFATE 2 MG/ML CARP IV PRN ×3 (01:12→11:25)
[2019-10-08] MEDS: LACTATED RINGER'S 1,000 ML IV SCH ×3 (01:13→19:49)
[2019-10-08] MEDS ORDERED: CYCLOBENZAPRINE HCL 5 MG TAB PO ONE (03:05)
--- NOTE | 2019-10-08 03:46 | Communication Note ---
Date of Service: October 08, 2019 Notified that pt's pain was not well controlled and she was also having muscle spasms. In addition to her morphine 2mg q3h and PO oxycodone 5mg q4h and scheduled tylenol, ordered Toradol 15mg q6h prn. Also ordered a one time Flexeril dose of 5mg for muscle spasms in her thigh Resident Activity Tracking Resident Involvement: Director Hr Communications Coverage Note Care Provided: Adult Hospital Medicine
[2019-10-08] MEDS: OXYCODONE HCL IR 5 MG TAB (IMMEDIATE RELEASE) PO PRN ×3 (05:53→21:59)
[2019-10-08] MEDS: ACETAMINOPHEN 500 MG TAB PO SCH ×3 (06:22→22:08)
[2019-10-08 07:04] LABS: Hematocrit (blood only) 33.5 % (37-47); Hemoglobin 10.7 g/dL (12.0-16.0); Mean Corpuscular Hemoglobin 30.1 pg (25-34); Mean Corpuscular Hgb Conc 31.9 g/dL (32-36); Mean Corpuscular Volume 94.1 fL (80-100); Platelet Count 327 K/uL (130-400); RDW Standard Deviation 48.2 fL (36.4-46.3); Red Blood Count 3.56 M/uL (4.2-5.4); White Blood Count 12.39 K/uL (4.8-10.8)
[2019-10-08 07:35] LABS: Calcium 9.3 mg/dl (8.5-10.1); Creatinine Clr Calc Pharmacy 65.2 ml/min; Est GFR (African American) 100.3; Est GFR (Non-African American) 86.6; Potassium 4.3 mmol/L (3.5-5.1)
[2019-10-08 07:38] LABS: Albumin Globulin Ratio 0.8 (0.9-2); Bilirubin,Total 0.5 mg/dl (0.2-1); Globulin 3.8 gm/dl (2.5-4.0); Total Protein 6.8 gm/dl (6.4-8.2)
[2019-10-08] MEDS: POTASSIUM CHLORIDE 20 MEQ TABCR PO SCH ×2 (07:50→22:06)
[2019-10-08] MEDS: ASPIRIN 81 MG ECTAB PO SCH (07:51)
[2019-10-08] MEDS: ATORVASTATIN 40 MG TAB PO SCH (07:57)
[2019-10-08] MEDS: ESCITALOPRAM OXALATE 10 MG TAB PO SCH (07:57)
[2019-10-08] MEDS: FLUTICASONE PROPIONATE NA SPR 16 GM BTL NAE SCH (07:57)
[2019-10-08] MEDS: FLUTICASONE/VILANTEROL 200/25MCG 14 PUFFS/INHALER INH SCH (07:57)
--- NOTE | 2019-10-08 07:57 | Hospitalist Progress Note ---
Date of Service October 08, 2019 Assessment & Plan (1) Closed left femoral fracture: - Age related Osteoporotic Intertrochanteric fracture of left femur -Pt has been off plavix for 1 week per dc summary from [facility] to have stopped on 09/29 to complete 21 days. Hold subcu heparin as she was on this at [facility]. -Continue baby aspirin -Hip fracture order set completed -Ortho consult, Dr. Obrien (2) History of CVA with residual deficit: -Occurred on 09/09/2019 -Continue baby aspirin for now -Left-sided residual deficit, using walker for ambulation (3) Hypertension: -Continue losartan 75 mg daily (4) Hyperlipidemia: -atorvastatin (5) Osteopenia: -Check vitamin D level (6) Asthma: -not in exacerbation Continue Symbicort, Breo fluticasone nasal spray (7) Anxiety: -Continue Lexapro 10 mg daily as well as lorazepam for anxiety as per [employer] meds (8) DVT prophylaxis: -SCDs, teds on unaffected leg CODE STATUS: Full code Disposition: Patient from [facility], likely to remain in the hospital x2 days, will need placement for rehab upon discharge Admission and Anticipated Discharge Date Admission Date: October 07, 2019 Subjective pt is in significant pain, for OR this afternoon, Review of Systems Review of Systems: Moderate distress and fatigue no headache, blurry or double vision no speech or swallowing issues no chest pain, pressure or palpitations no shortness of breath, cough or wheezes no abdominal pain, nausea or vomiting, diarrhea or constipation no dysuria, hematuria or frequency Right thigh and hip pain exquisitely tender to move no back pain, CVA tenderness or radicular pain no bruising, bleeding or rashes no focal signs of weakness or numbness or altered sensation no complaints or anxiety or depression. Physical Exam Physical Exam: The patient appeared well nourished and normally developed. She is in moderate distress Vital signs as documented. Head exam is normocephalic atraumatic no scleral icterus Neck is without JVD, thyromegaly, or carotid bruits. Lungs are clear to auscultation, no focal loss of breath sounds Cardiac exam, Rhythm is regular.. No murmurs, rubs or gallops. Abdominal exam reveals normal bowel sounds, soft non tender, no masses Extremities are nonedematous right leg and thigh are very painful and tender to move Neurologic exam is alert and oriented, no focal loss of strength or sensation however patient cannot move her right leg due to the pain Skin is without bruises or rashes no immediate or obvious bruises are seen Psychologically is without concerns for anxiety or depression Results & Data Results & Data ([facility]) Vital Signs (Past 12 Hours) Vital Signs Temp Pulse Pulse Resp BP Pulse Ox Pulse Ox 10/08/19 07:25 94 H 10/08/19 07:00 98.2 F 104 H 18 177/73 H 10/08/19 04:00 99 10/08/19 02:45 98.4 F 93 H 18 172/67 H 99 10/08/19 00:22 100 H 10/08/19 00:00 90 10/07/19 23:23 98.8 F 102 H 18 171/71 H 96 PG Care Time/CCT Total # of Minutes Spent Total Time Spent with Patient: Total time spent is greater than 50% in coordina tion of care (as documented) at patient's floor/unit and/or counseling patient: Coding Level of Care Code 20903 Subseq Hosp Care Lvl 2 Diagnoses Closed left femoral fracture S72.92XA History of CVA with residual deficit I69.30 Hypertension I10 Hyperlipidemia E78.5 Osteopenia M85.80 Asthma J45.909 Anxiety F41.9 DVT prophylaxis Z29.9
[2019-10-08] MEDS ORDERED: LOSARTAN POTASSIUM 25 MG TAB PO SCH (09:00)
[2019-10-08] MEDS: LORazepam 0.5 MG TAB PO PRN (10:04)
--- NOTE | 2019-10-08 11:42 | History & Physical Bridge Note ---
Date of Service October 08, 2019 History & Physical Bridge Note I have examined the patient, reviewed the History & Physical and in the interval since the performance of the History & Physical I have noted the following changes of clinical significance: no changes noted
[2019-10-08] MEDS ORDERED: fentaNYL citrate 100 MCG/2 ML VIAL ONE ×2 (13:13→14:58)
[2019-10-08] MEDS ORDERED: PROPOFOL IV EMULSION 10 MG/ML 20 ML VIAL IV ONE (13:13)
[2019-10-08] MEDS ORDERED: LIDOCAINE HCL 2% 2 ML VIAL/AMP(20MG/ML) INFIL ONE (13:13)
[2019-10-08] MEDS ORDERED: MIDAZOLAM HCL 1 MG/ML 2ML VIAL ONE (13:13)
[2019-10-08] MEDS ORDERED: MoRPHine SULFATE 2 MG/ML CARP IV STA (13:32)
--- NOTE | 2019-10-08 14:27 | Anesthesiology Consultation ---
Date of Service October 08, 2019 Assessment & Plan (1) Encounter for pre-operative examination: History Surgery Operation Date: 10/08/19 13:00 Proposed Procedures p Left Long Trochanteric Nailing - Suresh Obrien MD Height/Weight Height: 5 ft 3 in Weight: 63.5 kg Allergies Allergy/AdvReac Type Severity Reaction Status Date / Time celecoxib [From Celebrex] Allergy Verified 10/07/19 08:15 Medications Home Medications Medication Instructions Recorded Confirmed Last Taken budesonide-formoterol HFA 160 2 puffs INH BID #10.2 gm 10/09/18 10/07/19 Unknown mcg-4.5 mcg/actuation aerosol inhaler atorvastatin 40 mg tablet 40 mg PO DAILY #90 tab 06/23/19 10/07/19 Unknown acetaminophen 325 mg PO QID 10/07/19 10/07/19 10/06/19 21:00 325 mg albuterol sulfate 1 puffs INHALATION Q4H PRN 10/07/19 10/07/19 Unknown aspirin 81 mg PO QAM 10/07/19 10/07/19 10/06/19 09:00 bisacodyl 10 mg SD DAILY PRN 10/07/19 10/07/19 Unknown docusate sodium 100 mg PO BID PRN 10/07/19 10/07/19 Unknown escitalopram oxalate 10 mg PO DAILY 10/07/19 10/07/19 Unknown fluticasone furoate-vilanterol 1 inh INHALATION DAILY 10/07/19 10/07/19 Unknown [Breo Ellipta] fluticasone propionate [Flonase 2 spray INTRANASAL DAILY 10/07/19 10/07/19 Unknown Allergy Relief] heparin (porcine) 5,000 unit SUBCUT Q8H 10/07/19 10/07/19 Unknown loperamide 2 mg PO Q2H PRN 10/07/19 10/07/19 Unknown lorazepam 0.5 mg PO TID PRN 10/07/19 10/07/19 Unknown lorazepam 1 mg PO HS PRN 10/07/19 10/07/19 Unknown losartan [Cozaar] 75 mg PO DAILY 10/07/19 10/07/19 Unknown meclizine 25 mg PO TID PRN 10/07/19 10/07/19 Unknown melatonin 3 mg PO HS 10/07/19 10/07/19 Unknown oxycodone 5 mg PO ONCE 10/07/19 10/07/19 10/07/19 07:00 polyethylene glycol 3350 [Miralax] 17 g PO QDL PRN 10/07/19 10/07/19 Unknown potassium chloride 20 meq PO BID 10/07/19 10/07/19 Unknown sennosides-docusate sodium 1 tab-cap PO QDL PRN 10/07/19 10/07/19 Unknown [Senokot-S] sodium phosphates [Fleet Enema] 133 ml SD DAILY PRN 10/07/19 10/07/19 Unknown Active Medications Generic Name Dose Route Start Last Admin Trade Name Freq PRN Reason Stop Dose Admin Acetaminophen 1,000 mg 10/07/19 14:00 10/08/19 06:22 Tylenol PO 11/06/19 13:59 1,000 mg Q8H YULY Administration Aspirin 81 mg 10/08/19 09:00 10/08/19 07:51 Ecotrin Ectab PO 11/07/19 08:59 Not Given QA YULY Atorvastatin Calcium 40 mg 10/08/19 09:00 10/08/19 07:57 Lipitor PO 11/07/19 08:59 40 mg DAILY YULY Administration Escitalopram Oxalate 10 mg 10/08/19 09:00 10/08/19 07:57 Lexapro Tab PO 11/07/19 08:59 10 mg DAILY YULY Administration Fluticasone Propionate 2 sprays 10/08/19 09:00 10/08/19 07:57 Flonase TASHI 11/07/19 08:59 2 sprays DAILY YULY Administration Fluticasone/Vilanterol 1 puffs 10/08/19 09:00 10/08/19 07:57 Breo Ellipta 200/25 Mcg Inh INH 11/07/19 08:59 1 puffs DAILY YULY Administration Lorazepam 0.5 mg 10/07/19 09:51 10/08/19 10:04 Ativan PO 11/06/19 09:50 0.5 mg TID PRN Administration Anxiety Lorazepam 1 mg 10/07/19 12:43 10/07/19 21:24 Ativan PO 11/06/19 12:42 1 mg HS PRN Administration Sleep Morphine Sulfate 2 mg 10/07/19 20:31 06/19/20 11:25 Morphine Sulfate IV 10/21/19 09:42 2 mg Q3H PRN Administration Pain Ondansetron HCl 4 mg 10/07/19 09:43 10/07/19 20:00 Zofran IV 11/06/19 09:42 4 mg Q4H PRN Administration Nausea And Vomiting Oxycodone HCl 5 mg 10/07/19 09:43 10/08/19 09:40 Roxicodone Immediate Rel PO 10/21/19 09:42 5 mg Q4H PRN Administration MODERATE Pain (Scale 4,5,6) Potassium Chloride 20 meq 10/07/19 21:00 10/08/19 07:50 Klor-Con M20 PO 11/06/19 20:59 Not Given BID YULY Senna/Docusate Sodium 2 tab 10/07/19 21:00 10/07/19 20:03 Senokot S PO 11/06/19 20:59 Not Given HS YULY NPO Date Last Intake of Fluids: 10/07/19 Time Last Intake of Fluids: 07:30 Last Intake of Fluids Comment: med with a sip Date Last Intake of Solids: 10/07/19 Time Last Intake of Solids: 07:30 Past Medical History Medical History Asthma (Chronic) Benign colonic polyp (Chronic) Cystocele, midline (Chronic) Disc degeneration, lumbar (Chronic) Hyperlipidemia (Chronic) Hypertension (Chronic) Osteopenia (Chronic) Past Family History Family History Mother Diabetes Hypertension Myocardial infarction Sister Diabetes Denies family history of Ovarian cancer Prostate cancer Breast cancer Colorectal cancer Past Surgical History Surgical History History of tooth extraction S/P colonoscopy Social History Smoking Status: Never smoker Hx Alcohol Use: Yes Alcohol type: wine alcohol intake frequency: holidays/special occasions only Hx Substance Use: No Physical Exam Vital Signs Last Vital Signs Temp 37.2 C 10/08/19 13:16 Pulse 92 H 10/08/19 13:16 Resp 16 10/08/19 13:16 BP 175/65 H 10/08/19 13:16 Pulse Ox 97 10/08/19 13:16 Testing Laboratory Results 10/08/19 06:27 10/08/19 06:27 PT 10.0 Seconds (9.0-12.0) 10/07/19 08:17 INR 0.9 (0.9-1.1) 10/07/19 08:17 APTT 23.4 Seconds (21.0-31.0) 10/07/19 08:17 Urine Color Yellow 10/07/19 08:15 Urine Appearance Cloudy (Clear) A 10/07/19 08:15 Urine pH 7.0 (4.5-7.5) 10/07/19 08:15 Ur Specific [place] 1.017 (1.000-1.030) 10/07/19 08:15 Urine Protein Negative (Negative) 10/07/19 08:15 Urine Glucose (UA) Negative (Negative) 10/07/19 08:15 Urine Ketones Negative (Negative) 10/07/19 08:15 Urine Nitrite Negative (Negative) 10/07/19 08:15 Ur Leukocyte Esterase 3+ (Negative) H 10/07/19 08:15 Urine WBC (Auto) >30 /hpf (0-5) H 10/07/19 08:15 Urine RBC (Auto) 5-10 /hpf (0-4) H 10/07/19 08:15 U Hyaline Cast (Auto) Not Reportable 10/07/19 08:15 U Epithel Cells (Auto) 20-30 /lpf (0-5) H 10/07/19 08:15 Urine Bacteria (Auto) 1+ (Negative) H 10/07/19 08:15 Blood Type A Positive 10/07/19 08:17 Antibody Screen NEGATIVE 10/07/19 08:17 10/07/19 08:15 Urine Culture - Preliminary Urine,Clean Catch Gram negative bacilli Lactobacillus species Electrocardiogram Date: 10/07/19 Normal sinus rhythm Normal ECG No previous ECGs available Confirmed by Du Ogden ([id number]) on 10/07/2019 5:08:38 PM
[2019-10-08] MEDS ORDERED: BUPIVACAINE/EPINEPHRINE 0.25% 1:200,000 30 ML VIAL ONE (14:42)
[2019-10-08] MEDS ORDERED: ATROPINE SULFATE 0.1 MG/ML 10ML SYR IV PRN (14:54)
[2019-10-08] MEDS ORDERED: ONDANSETRON INJ 2 MG/ML 2 ML VIAL IV PRN (14:54)
[2019-10-08] MEDS ORDERED: fentaNYL citrate 100 MCG/2 ML VIAL IV PRN (14:54)
[2019-10-08] MEDS ORDERED: HYDROmorphone INJ 1 MG/ML SYRINGE IV PRN (14:54)
[2019-10-08] MEDS ORDERED: ePHEDrine sulfate 50 MG/ML AMP IV PRN (14:54)
[2019-10-08] MEDS ORDERED: CEFAZOLIN 250 MG/ML 1 GM VIAL ONE (15:23)
[2019-10-08] MEDS ORDERED: ROCURONIUM BROMIDE 10 MG/ML 5 ML VIAL IV ONE (15:23)
[2019-10-08] MEDS ORDERED: HYDROmorphone INJ 2 MG/ML SYR/VIAL ONE (15:39)
[2019-10-08] MEDS ORDERED: CEFAZOLIN 2000MG 2,000 MG/15 ML SYR IV ONE (15:49)
--- NOTE | 2019-10-08 16:08 | Operative Report ---
PG Post Operative Report Pre & Post Diagnosis Operation Date: 10/08/19 13:00 Pre-Op Diagnosis: LEFT intertrochanteric femur fracture Post-Op Diagnosis: LEFT intratrochanteric femur fracture I identified the patient and participated in the time-out.: Yes Procedure Operation Date: 10/08/19 13:00 Actual Procedures p Left Trochanteric Nail(Left) -George Adam Surgeon George Adam DO Hosiery Repairer George Skinner PAC Estimated Blood Loss 50 Findings Consistent with Post-Op Diagnosis Specimens None Complications none Disposition Disposition: Recovery Room Indications Marcie is a pleasant 74-year-old female who tripped and fell yesterday and sustained a left hip injury. She came to the emergency room and radiographs demonstrated a displaced fracture of the intertrochanteric region of the left hip. She was admitted to the hospital. After discussions at bedside, she elected proceed with an intramedullary nail fixation of her left hip. Description of Procedure On October 08, 2019 she was brought down from her hospital room to the preoperative holding area. The operative extremity was identified and signed. She was given a preoperative antibiotic. She was taken back to the operating room and laid on the table in supine position. She was put under general anesthesia. The left leg was brought out to traction on a fracture table. The left hip was then prepped and draped in sterile fashion. A timeout was done. The patient and the operative extremity was properly identified. Fluoroscopy was used throughout the case. A small longitudinal incision was made just superior to the greater trochanter. Dissection was taken down through the fascia. The tip of the greater trochanter was identified. A guidepin was placed at the tip of the greater trochanter and advanced down the femoral canal. A 17 mm opening reamer was then used to open the proximal femur. A ball-tipped guidewire was then placed. Sequential reaming up to a size 12 reamer was done. A Synthes 11 mm TFN short nail was then impacted into place. Fluoroscopic images were used to confirm adequate placement of the nail. A additional lateral incision was made. A cannula was inserted for the lag screw. A guidepin was then placed in the center center position of the femoral head. The helical blade measured to be 90 mm. The lateral cortex was then drilled. The helical blade was then drilled. The final helical blade was then impacted into the femoral head. Compression was used to compress the fracture. The helical blade was then locked. A cannula was then advanced for the distal locking screw. The distal locking screw was then drilled and placed. I was able to get excellent purchase. The outrigger was then removed. Final fluoroscopic images showed anatomic alignment. The wounds were then irrigated. The deep fat layer was closed with #1 Vicryl suture. Skin was closed with 2-0 Vicryl and neetu. She was placed in a soft dressing. She was then extubated [facility] She was taken to the postanesthesia care unit in stable condition. She tolerated the procedure well. George Skinner PA-C, was present for the entire procedure. He was critical for patient positioning, prepping, draping, retraction exposure, wound closure and application of sterile dressing. I attest to the content of the Intraoperative Record and any orders documented therein. Any exceptions are noted below.
--- NOTE | 2019-10-08 16:27 | Fluoroscopy Report ---
FL femur LT 2V CLINICAL HISTORY: LEFT LONG TROCHANTERIC NAILING COMPARISON STUDY: None FLUOROSCOPY TIME: 1 minute NUMBER OF FLUOROSCOPIC IMAGES: 3 FINDINGS: Image intensifier support for a left hip nailing procedure IMPRESSION: Image intensifier support for left hip nailing procedure ACT 112: Negative or not required by law. The above report was generated using voice recognition software. It may contain grammatical, syntax or spelling errors. Electronically signed by: Dale Glass M.D. 10/08/2019 4:26 PM
[2019-10-08] MEDS ORDERED: GLYCOPYRROLATE 0.2 MG/ML VIAL ONE (16:29)
[2019-10-08] MEDS ORDERED: NEOSTIGMINE METHYLSULFATE 5 MG/5 ML SYR ONE (16:29)
--- NOTE | 2019-10-08 16:52 | XRay Report ---
SINGLE VIEW PELVIS; SINGLE VIEW LEFT HIP CLINICAL HISTORY: Open reduction and internal fixation of the left femur. FINDINGS: An AP portable view of the hips and pelvis with a crosstable lateral portable view of the l eft hip are compared to study dated 10/07/2019. There has been intertrochanteric and intramedullary na il fixation of an intertrochanteric fracture of the left femur. Near-anatomic alignment has been rest ored. A single cortical lag screw transfixes the distal end of the intramedullary nail. The orthopedi c hardware appears intact. No new fracture is identified. There are expected postoperative changes ov erlying the left hip including skin clips, subcutaneous gas, and soft tissue swelling. Mild degenerat anaya joint space narrowing is present in both hips. IMPRESSION: 1. There are expected postoperative changes status post open reduction and internal fixation of the l eft femur as above. 2. Near-anatomic alignment is restored. 3. No new fracture is seen. ACT 112: Negative or not required by law. Electronically signed by: Girma Wylie M.D. 10/08/2019 4:50 PM
--- NOTE | 2019-10-08 17:04 | Anesthesiology Progress Note ---
Date of Service October 08, 2019 Anesthesia Post Procedure Vital Signs Vital Signs: Temp Pulse Pulse Pulse Resp BP Pulse Ox 10/08/19 16:50 69 17 172/64 H 96 10/08/19 16:40 69 16 140/52 L 94 10/08/19 16:30 69 15 153/55 H 94 10/08/19 16:24 36.4 C L 72 16 168/67 H 95 10/08/19 13:16 37.2 C 92 H 16 175/65 H 97 10/08/19 11:15 36.7 C 85 18 151/69 H 94 10/08/19 07:25 94 H 10/08/19 07:00 36.8 C 104 H 18 177/73 H 10/08/19 04:00 10/08/19 02:45 36.9 C 93 H 18 172/67 H 99 10/08/19 00:22 100 H 10/08/19 00:00 10/07/19 23:23 37.1 C 102 H 18 171/71 H 96 10/07/19 19:43 36.7 C 65 20 172/71 H 90 Pulse Ox 10/08/19 16:50 10/08/19 16:40 10/08/19 16:30 10/08/19 16:24 10/08/19 13:16 10/08/19 11:15 10/08/19 07:25 10/08/19 07:00 10/08/19 04:00 99 10/08/19 02:45 10/08/19 00:22 10/08/19 00:00 90 10/07/19 23:23 10/07/19 19:43 Pain Intensity Left Hip: Pain Intensity: 3 Transfer of Care Handoff Completed per policy Notes Mental Status: alert / awake / arousable and participated in evaluation Patient Amnestic to Procedure: Yes Nausea / Vomiting: adequately controlled Pain: adequately controlled Airway Patency, RR, SpO2: stable & adequate BP & HR: stable & adequate Hydration State: stable & adequate Anesthetic Complications: no major complications apparent and Pt Satisfied with anesthetic care
[2019-10-08] MEDS: KETOROLAC TROMETHAMINE 15 MG/ML VIAL IV PRN (20:03)
[2019-10-08] MEDS: DOCUSATE SODIUM/SENNA 50/8.6MG TAB PO SCH (22:05)
[2019-10-09] MEDS: MoRPHine SULFATE 2 MG/ML CARP IV PRN (00:14)
[2019-10-09] MEDS: KETOROLAC TROMETHAMINE 15 MG/ML VIAL IV PRN ×3 (03:50→17:40)
[2019-10-09 06:20] LABS: Hematocrit (blood only) 27.1 % (37-47); Hemoglobin 8.9 g/dL (12.0-16.0); Mean Corpuscular Hemoglobin 30.9 pg (25-34); Mean Corpuscular Hgb Conc 32.8 g/dL (32-36); Mean Corpuscular Volume 94.1 fL (80-100); Platelet Count 252 K/uL (130-400); RDW Coefficient of Variation 14.1 % (11.5-14.5); RDW Standard Deviation 48.3 fL (36.4-46.3); Red Blood Count 2.88 M/uL (4.2-5.4); White Blood Count 9.15 K/uL (4.8-10.8)
[2019-10-09] MEDS: LACTATED RINGER'S 1,000 ML IV SCH (06:29)
[2019-10-09] MEDS: ACETAMINOPHEN 500 MG TAB PO SCH ×3 (06:29→21:44)
--- NOTE | 2019-10-09 06:51 | Orthopedic Progress Note ---
Date of Service October 09, 2019 Assessment & Plan (1) Status post-operative repair of hip fracture: We will see how she does today with physical therapy. I tried to give her some encouragement and told her that her hip is not stronger than it was before she fractured it. I realized that she has some weakness of her left lower extremity and she will probably be slow to progress with physical therapy. She is currently on aspirin for DVT prophylaxis. Due to her recent history with anticoagulation, I will leave it up to the medicine team to choose the best anticoagulation agent for her now. From an orthopedic standpoint I am okay with any options including subcu heparin if indicated. She will likely need to be on anticoagulation for 4 weeks for her hip fracture. She is orthopedically stable for discharge when medically ready. Full orthopedic discharge instructions are in the discharge summary. Present on Admission?: Yes Subjective Marcie was seen and examined at bedside this morning. Overall she is doing fairly well. She has not been up out of bed yet. She is having some soreness in the left hip which is to be expected. She told me that she is very scared to put any weight on the hip. I tried to alleviate some of her concerns. She does have some weakness of her left lower extremity secondary to her recent stroke. Physical Exam Musculoskeletal: On physical examination of the left hip, the dressings are clean and dry. She has very weak dorsiflexion of her left ankle but she is not able to give a good examination because of the hip pain. Results & Data ([facility]) Vital Signs (Past 12 Hours) Vital Signs Temp Pulse Resp BP Pulse Ox Pulse Ox 10/09/19 04:03 99 10/09/19 03:31 36.6 C 75 16 129/74 100 10/08/19 23:30 91 10/08/19 23:01 36.9 C 74 16 118/68 100 10/08/19 20:07 36.6 C 78 14 166/71 H 100 10/08/19 19:03 36.6 C 75 14 116/63 99 Diagnostic Findings Postoperative x-rays of the left hip show the hardware and the fracture to be in anatomic alignment. PG Care Time/CCT Total # of Minutes Spent Total Time Spent with Patient: Total time spent is greater than 50% in coordination of care (as documented) at patient's floor/unit and/or counseling patient: Coding Level of Care Code None Diagnoses Status post-operative repair of hip fracture Z98.890; Z87.81
[2019-10-09 06:58] LABS: Albumin Level 2.5 gm/dl (3.4-5.0); BUN Creatinine Ratio 24.7 (10-20); Calcium 8.6 mg/dl (8.5-10.1); Creatinine Clr Calc Pharmacy 70.2 ml/min; Est GFR (African American) 102.8; Est GFR (Non-African American) 88.7; Potassium 4.3 mmol/L (3.5-5.1)
[2019-10-09 07:01] LABS: Albumin Globulin Ratio 0.8 (0.9-2); Bilirubin,Total 0.7 mg/dl (0.2-1); Globulin 3.3 gm/dl (2.5-4.0); Total Protein 5.8 gm/dl (6.4-8.2)
[2019-10-09] MEDS: LORazepam 0.5 MG TAB PO PRN ×2 (09:20→17:41)
[2019-10-09] MEDS: POTASSIUM CHLORIDE 20 MEQ TABCR PO SCH ×2 (09:20→21:36)
[2019-10-09] MEDS: FLUTICASONE/VILANTEROL 200/25MCG 14 PUFFS/INHALER INH SCH (09:22)
[2019-10-09] MEDS: FLUTICASONE PROPIONATE NA SPR 16 GM BTL NAE SCH (09:23)
[2019-10-09] MEDS: ASPIRIN 81 MG ECTAB PO SCH (09:24)
[2019-10-09] MEDS: ATORVASTATIN 40 MG TAB PO SCH (09:24)
[2019-10-09] MEDS: ESCITALOPRAM OXALATE 10 MG TAB PO SCH (09:25)
[2019-10-09] MEDS: OXYCODONE HCL IR 5 MG TAB (IMMEDIATE RELEASE) PO PRN ×2 (12:31→19:50)
--- NOTE | 2019-10-09 16:39 | Hospitalist Progress Note ---
Date of Service October 09, 2019 Assessment & Plan (1) Closed left femoral fracture: - Age related Osteoporotic Intertrochanteric fracture of left femur -Pt has been off plavix for 1 week per dc summary [place] [facility] stopped on 09[place]29 to complete 21 days. . -Continue baby aspirin -Hip fracture order set completed -Ortho consult, Dr. Adam with femoral myesha/nail 10/07, dvt prevetion is sc hepain (2) History of CVA with residual deficit: -Occurred on 09/09/2019 -Continue baby aspirin for now -Left-sided residual deficit, using walker for ambulation (3) Hypertension: -Continue losartan 75 mg daily (4) Hyperlipidemia: -atorvastatin (5) Osteopenia: -Check vitamin D level (6) Asthma: -not in exacerbation Continue Symbicort, Breo fluticasone nasal spray (7) Anxiety: -Continue Lexapro 10 mg daily as well as lorazepam for anxiety as per [employer] meds (8) DVT prophylaxis: -SCDs, will use heparin sc x 4 weeks CODE STATUS: Full code Disposition: Patient from [facility], will need placement for rehab upon discharge Admission and Anticipated Discharge Date Admission Date: October 07, 2019 Subjective pt is with much better pain control since operative repair of hip/femur fracture, she is interested in rehab, maybe trying for a place closer to home Review of Systems Review of Systems: Moderate distress and fatigue no headache, blurry or double vision no speech or swallowing issues no chest pain, pressure or palpitations no shortness of breath, cough or wheezes no abdominal pain, nausea or vomiting, diarrhea or constipation no dysuria, hematuria or frequency Right thigh and hip pain, much less tender no back pain, CVA tenderness or radicular pain no bruising, bleeding or rashes no focal signs of weakness or numbness or altered sensation no complaints or anxiety or depression. Physical Exam Physical Exam: The patient appeared well nourished and normally developed. She is in moderate distress Vital signs as documented. Head exam is normocephalic atraumatic no scleral icterus Neck is without JVD, thyromegaly, or carotid bruits. Lungs are clear to auscultation, no focal loss of breath sounds Cardiac exam, Rhythm is regular.. No murmurs, rubs or gallops. Abdominal exam reveals normal bowel sounds, soft non tender, no masses Extremities are nonedematous right leg and thigh are very painful and tender to move Neurologic exam is alert and oriented, no focal loss of strength or sensation however patient does have limitations to movement with pain Skin is without bruises or rashes no immediate or obvious bruises are seen Psychologically is without concerns for anxiety or depression Results & Data Results & Data ([facility]) Vital Signs (Past 12 Hours) Vital Signs Temp Pulse Resp BP BP Pulse Ox 10/09/19 15:52 98.6 F 93 H 16 118/65 92 10/09/19 12:02 98.8 F 97 H 16 128/66 92 10/09/19 07:42 97.9 F 99 H 18 136/63 94 PG Care Time/CCT Total # of Minutes Spent Total Time Spent with Patient: Total time spent is greater than 50% in coordination of care (as documented) at patient's floor/unit and/or counseling patient: Coding Level of Care Code 41405 Subseq Hosp Care Lvl 2 Diagnoses Closed left femoral fracture S72.92XA History of CVA with residual deficit I69.30 Hypertension I10 Hyperlipidemia E78.5 Osteopenia M85.80 Asthma J45.909 Anxiety F41.9 DVT prophylaxis Z29.9
[2019-10-09] MEDS: DOCUSATE SODIUM/SENNA 50/8.6MG TAB PO SCH (21:36)
[2019-10-09] MEDS: HEPARIN SOD 5,000 UNIT/0.5 ML VIAL SQ SCH (21:43)
[2019-10-09] MEDS: LORazepam 1 MG TAB PO PRN (21:50)
[2019-10-10] MEDS: KETOROLAC TROMETHAMINE 15 MG/ML VIAL IV PRN ×2 (03:15→21:55)
[2019-10-10] MEDS: ACETAMINOPHEN 500 MG TAB PO SCH ×3 (05:53→21:55)
[2019-10-10] MEDS: OXYCODONE HCL IR 5 MG TAB (IMMEDIATE RELEASE) PO PRN ×3 (05:53→19:33)
[2019-10-10 06:03] LABS: Hematocrit (blood only) 26.3 % (37-47); Hemoglobin 8.5 g/dL (12.0-16.0); Mean Corpuscular Hemoglobin 30.6 pg (25-34); Mean Corpuscular Hgb Conc 32.3 g/dL (32-36); Mean Corpuscular Volume 94.6 fL (80-100); Mean Platelet Volume 9.6 fL (7.4-10.4); Platelet Count 237 K/uL (130-400); RDW Coefficient of Variation 13.9 % (11.5-14.5); RDW Standard Deviation 48.1 fL (36.4-46.3); Red Blood Count 2.78 M/uL (4.2-5.4); White Blood Count 8.78 K/uL (4.8-10.8)
[2019-10-10 06:29] LABS: Albumin Level 2.2 gm/dl (3.4-5.0); BUN Creatinine Ratio 28.4 (10-20); Calcium 8.4 mg/dl (8.5-10.1); Creatinine Clr Calc Pharmacy 78.7 ml/min; Est GFR (African American) 106.7; Est GFR (Non-African American) 92.1
[2019-10-10 06:32] LABS: Albumin Globulin Ratio 0.6 (0.9-2); Bilirubin,Total 0.8 mg/dl (0.2-1); Globulin 3.7 gm/dl (2.5-4.0); Total Protein 5.9 gm/dl (6.4-8.2)
--- NOTE | 2019-10-10 07:53 | Hospitalist Progress Note ---
Date of Service October 10, 2019 Assessment & Plan (1) Closed left femoral fracture: - Age related Osteoporotic Intertrochanteric fracture of left femur -Pt has been off plavix for 1 week per dc summary from [facility] to have stopped on 09/29 to complete 21 days. . -Continue baby aspirin -Hip fracture order set completed -Ortho consult, Dr. Adam with femoral myesha/nail 10/07, dvt prevetion is sc hepain (2) Acute blood loss anemia: hgb is now in the 8 gm range but no transfusion yet (3) History of CVA with residual deficit: -Occurred on 09/09/2019 -Continue baby aspirin for now -Left-sided residual deficit, using walker for ambulation (4) Hypertension: -Continue losartan 75 mg daily (5) Hyperlipidemia: -atorvastatin (6) Osteopenia: -Check vitamin D level (7) Asthma: -not in exacerbation Continue Symbicort, Breo fluticasone nasal spray (8) Anxiety: -Continue Lexapro 10 mg daily as well as lorazepam for anxiety as per [employer] meds (9) DVT prophylaxis: -SCDs, will use heparin sc x 4 weeks CODE STATUS: Full code Disposition: Patient from [facility], will need placement for rehab upon discharge, pt able to return to rehab when ok from surgical standpoint Admission and Anticipated Discharge Date Admission Date: October 07, 2019 Subjective pt continues with improving pain and able to ambulate, she is interested in rehab, maybe trying for a place closer to home Review of Systems Review of Systems: Moderate distress and fatigue no headache, blurry or double vision no speech or swallowing issues no chest pain, pressure or palpitations no shortness of breath, cough or wheezes no abdominal pain, nausea or vomiting, diarrhea or constipation no dysuria, hematuria or frequency Right thigh and hip pain,less tender every day no back pain, CVA tenderness or radicular pain no bruising, bleeding or rashes no focal signs of weakness or numbness or altered sensation no complaints or anxiety or depression. Physical Exam Physical Exam: The patient appeared well nourished and normally developed. She is in moderate distress Vital signs as documented. Head exam is normocephalic atraumatic no scleral icterus Neck is without JVD, thyromegaly, or carotid bruits. Lungs are clear to auscultation, no focal loss of breath sounds Cardiac exam, Rhythm is regular.. No murmurs, rubs or gallops. Abdominal exam reveals normal bowel sounds, soft non tender, no masses Extremities are nonedematous right leg and thigh are very painful and tender to move Neurologic exam is alert and oriented, no focal loss of strength or sensation however patient does have limitations to movement with pain Skin is without bruises or rashes no immediate or obvious bruises are seen Psychologically is without concerns for anxiety or depression Results & Data Results & Data ([facility]) Vital Signs (Past 12 Hours) Vital Signs Temp Pulse Resp BP Pulse Ox Pulse Ox 10/10/19 04:22 96 10/10/19 00:00 98 10/09/19 23:33 97.9 F 93 H 21 134/71 90 PG Care Time/CCT Total # of Minutes Spent Total Time Spent with Patient: Total time spent is greater than 50% in coordination of care (as documented) at patient's floor/unit and/or counseling patient: Coding Level of Care Code 70884 Subseq Hosp Care Lvl 2 Diagnoses Closed left femoral fracture S72.92XA Acute blood loss anemia D62 History of CVA with residual deficit I69.30 Hypertension I10 Hyperlipidemia E78.5 Osteopenia M85.80 Asthma J45.909 Anxiety F41.9 DVT prophylaxis Z29.9
--- NOTE | 2019-10-10 07:59 | Orthopedic Progress Note ---
Date of Service October 10, 2019 Assessment & Plan (1) Status post-operative repair of hip fracture: Overall she seems to be in better spirits today. She will be seen by physical therapy and will attempt ambulation once again. She is currently on subcu heparin for DVT prophylaxis. She can be weightbearing as tolerated. She will likely return back to [facility] rehab upon discharge. She will follow-up with orthopedics in 2 weeks. Full discharge instructions were placed in the discharge summary.If you have any further questions regarding her care please feel free to contact me personally on my cell phone at [phone]. Present on Admission?: Yes Subjective Marcie was seen and examined at bedside this morning. She seems to be in better spirits today. She still having a lot of pain in her left hip. She was only able to briefly stand with physical therapy yesterday. She has not ambulated yet. She seems motivated to get better. She was started on subcu heparin yesterday for DVT prophylaxis. Physical Exam Musculoskeletal: On physical examination of the left hip, the dressing has a little bit of bloody drainage. Her leg lengths are equal. She has active dorsiflexion plantarflexion of her left ankle. I am not able to do strength testing due to the pain she is having in her hip. Results & Data ([facility]) Vital Signs (Past 12 Hours) Vital Signs Temp Pulse Resp BP Pulse Ox Pulse Ox 10/10/19 04:22 96 10/10/19 00:00 98 10/09/19 23:33 36.6 C 93 H 21 134/71 90 PG Care Time/CCT Total # of Minutes Spent Total Time Spent with Patient: Total time spent is greater than 50% in coordination of care (as documented) at patient's floor/unit and/or counseling patient: Coding Level of Care Code None Diagnoses Status post-operative repair of hip fracture Z98.890; Z87.81
[2019-10-10] MEDS: ESCITALOPRAM OXALATE 10 MG TAB PO SCH (08:20)
[2019-10-10] MEDS: ATORVASTATIN 40 MG TAB PO SCH (08:20)
[2019-10-10] MEDS: HEPARIN SOD 5,000 UNIT/0.5 ML VIAL SQ SCH ×2 (08:20→21:44)
[2019-10-10] MEDS: POTASSIUM CHLORIDE 20 MEQ TABCR PO SCH ×2 (08:21→21:46)
[2019-10-10] MEDS: ASPIRIN 81 MG ECTAB PO SCH (08:21)
[2019-10-10] MEDS: FLUTICASONE PROPIONATE NA SPR 16 GM BTL NAE SCH (08:21)
[2019-10-10] MEDS: FLUTICASONE/VILANTEROL 200/25MCG 14 PUFFS/INHALER INH SCH (08:21)
[2019-10-10] MEDS: LORazepam 0.5 MG TAB PO PRN ×2 (09:55→16:55)
[2019-10-10] MEDS: DOCUSATE SODIUM/SENNA 50/8.6MG TAB PO SCH (21:55)
[2019-10-10] MEDS: LORazepam 1 MG TAB PO PRN (21:55)
[2019-10-11] MEDS: ACETAMINOPHEN 500 MG TAB PO SCH ×2 (05:02→14:00)
[2019-10-11] MEDS: FLUTICASONE/VILANTEROL 200/25MCG 14 PUFFS/INHALER INH SCH (07:43)
[2019-10-11] MEDS: OXYCODONE HCL IR 5 MG TAB (IMMEDIATE RELEASE) PO PRN ×3 (07:43→16:01)
[2019-10-11] MEDS: FLUTICASONE PROPIONATE NA SPR 16 GM BTL NAE SCH (07:44)
[2019-10-11] MEDS: ESCITALOPRAM OXALATE 10 MG TAB PO SCH (08:51)
[2019-10-11] MEDS: ASPIRIN 81 MG ECTAB PO SCH (08:51)
[2019-10-11] MEDS: POTASSIUM CHLORIDE 20 MEQ TABCR PO SCH (08:52)
[2019-10-11] MEDS: HEPARIN SOD 5,000 UNIT/0.5 ML VIAL SQ SCH (08:52)
[2019-10-11] MEDS: ATORVASTATIN 40 MG TAB PO SCH (08:52)
[2019-10-11] MEDS: LORazepam 0.5 MG TAB PO PRN (08:56)
--- NOTE | 2019-10-11 13:53 | Discharge Summary ---
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 She was placed on heparin subcu, Plavix x21 days and baby aspirin for life on discharge which was 09/13/2019. She finished Plavix on 09/30/2019 per discharge summary from OSH. She had a residual left lower extremity weakness. Has been ambulating with a walker doing well with PT/OT at [facility]. This morning, pt was getting ready to go home today packing her things when she missed stepped and went down onto her left side and broke the left femur. She denies any LOC, lightheadedness, dizziness, did not injure any other part of her body or hit her head. Principal Diagnosis Left femur fracture Discharge Exam Constitutional WD/WN, vitals as above Eyes EOM intact bilaterally; no conjunctival abnormality ENMT external ear and nose normal, oropharynx normal Neck trachea midline, no thyromegaly normal visual inspection Respiratory normal respiratory effort, lungs clear to auscultation no respiratory distress Cardiovascular RRR, no murmur, no edema Gastrointestinal (Abdomen) Inspection/Auscultation: abdomen normal to inspection; abdomen not distended Musculoskeletal no cyanosis or clubbing, extremities motor strength 5/5 Skin no rashes, warm and dry Neurologic moves all extremities and awake Psychiatric Orientation: alert, oriented to person and cooperative Discharge Data Allergies Allergy/AdvReac Type Severity Reaction Status Date / Time celecoxib [From Celebrex] Allergy Verified 10/07/19 08:15 Consultations 10/07/19 08:00 Consult Case Management - Discharge Planning Routine 10/07/19 09:05 Consult Orthopedic Surgery Stat 10/07/19 09:42 ED Decision to Admit Stat 10/07/19 09:43 Consult Orthopedic Surgery Routine 10/07/19 09:45 Consult Case Management - Discharge Planning Routine Procedures Performed Operation Date: 10/08/19 13:00 Actual Procedures p Left Long Trochanteric Nail(Left) - Suresh Obrien MD Ordered Studies 10/08/19 07:00 FL femur LT 2V Routine FL fluoroscopy <1hr Routine Hospital Course (1) Closed left femoral fracture: - Age related Osteoporotic Intertrochanteric fracture of left femur -Pt has been off plavix for 1 week per [place] [facility] [place] stopped on [place]/29 to complete 21 days. . -Continue baby aspirin -Hip fracture order set completed -Ortho consult, Dr. Adam with femoral myesha/nail 10/07, dvt prevetion is sc hepain (2) Acute blood loss anemia: hgb is now in the 8 gm range but no transfusion yet. - Hgb stable on 10/09 at 8.5. (3) History of CVA with residual deficit: -Occurred on 09/09/2019 -Continue baby aspirin for now -Left-sided residual deficit, using walker for ambulation (4) Hypertension: -Continue losartan 75 mg daily (5) Hyperlipidemia: -atorvastatin (6) Osteopenia: -Check vitamin D level (7) Asthma: -not in exacerbation Continue Symbicort, Breo fluticasone nasal spray (8) Anxiety: -Continue Lexapro 10 mg daily as well as lorazepam for anxiety as per [employer] meds (9) DVT prophylaxis: -SCDs, will use heparin sc x 4 weeks Total Time Total Time Spent Total Time Spent (In Minutes): 35 Discharge Plan Discharge Items Patient Disposition: Transfer Inpatient Rehab Fac Reason For Visit: LEFT FEMUR FRACTURE Discharge Diagnosis: Left femur fracture Activity: Resume your previous activity Non-emergency contact: Primary Care Provider and Surgeon Call non-emergency contact if: your symptoms worsen Follow-up/Referrals: Yolanda Blair MD [Primary Care Provider] - George Adam DO [Physician] - (Please see orthopedics in 2 weeks.) Diet: Heart Healthy Addtl Attending Provider Instructions: ORTHOPEDIC INSTRUCTIONS Hip Fracture Activity and Therapy Recommendations: 1. You were shown a series of exercises in the hospital. Do these exercises three times each day if you are able. 2. Get up and walk several times each day if you are capable. Make sure you have assistance is needed. For the first four weeks, try not to stand or walk for more than one hour at a time. If you do stand or walk for more than one hour, you will not hurt anything, but your leg will likely swell. 3. As you feel comfortable, you may change from the walker or crutches to a cane and then to independent walking if you are able. Please be safe. Medications: 1. Narcotic You will likely be sent from the hospital with the narcotic pain medication that worked best throughout your stay. 2. Anticoagulationyou will likely be on a blood thinning medication for 4 weeks after discharge from the hospital. 3. Other medications may be given for specific circumstances. If you have any questions, please call the office at [phone]. 4. Resume previous home medications unless otherwise instructed TEDs/Elastic Stockings: The white elastic stockings help limit swelling and prevent blood clots from forming in your legs. The more you wear them, the more they work. Wear them for six weeks. Dressing Care: Willard can be open to air as long as the incisions are not draining. If the incisions are draining or if the neetu are getting caught on your clothes then please cover the neetu with dry gauze. Change the dressings as necessary to keep the incision as dry as possible Showering: You may shower 5 days from the day of surgery as long as the incisions are not draining. Do not soak the incision. Let soapy water run over the neetu and pat them dry. Things To Watch For: 1. Drainage from the incision site that occurs more than one week after your surgery. 2. Increased redness at the incision site. 3. Fever above 102 degrees Fahrenheit. 4. Unusual chest pain or shortness of breath. 5. Call [facility] at with any of the above problems Follow-Up Visit: Follow-up with Dr. Adam's PA (George Skinner) 2-3 weeks after your day of surgery. He will remove your neetu and answer any questions. If you have any additional questions or concerns, Dr Adam is usually in the office at the same time and will be available An appointment was probably scheduled when you signed-up for surgery in the office. If you have any questions call Pending Studies at Discharge: No Stand-Alone Forms: My [facility] Skilled Items Patient informed of condition?: Yes DNR: No Discharge Level of Care: Acute rehab Communicable Disease: No Discharge Prognosis: Stable Lines: None Urinary Catheter: No Medications and DC Order Prescriptions: Continued atorvastatin 40 mg tablet 40 mg PO DAILY Qty: 90 RF: 3 Symbicort 160-4.5 mcg/actuation HFA aerosol inhaler 2 puffs INH BID Qty: 10.2 RF: 5 acetaminophen 325 mg Tablet 325 mg PO QID RF: 0 melatonin 3 mg Tablet 3 mg PO HS RF: 0 aspirin 81 mg Tablet,Delayed Release (Dr/Ec) 81 mg PO QAM RF: 0 potassium chloride 20 mEq tablet,ER particles/crystals 20 meq PO BID RF: 0 lorazepam 0.5 mg tablet 0.5 mg PO TID PRN (Reason: Anxiety) RF: 0 lorazepam 1 mg Tablet 1 mg PO HS PRN (Reason: Anxiety) RF: 0 fluticasone propionate [Flonase Allergy Relief] 50 mcg/actuation [place],Suspension 2 spray INTRANASAL DAILY RF: 0 oxycodone 5 mg Tablet 5 mg PO ONCE RF: 0 escitalopram oxalate 10 mg tablet 10 mg PO DAILY RF: 0 albuterol sulfate 90 mcg/actuation HFA aerosol inhaler 1 puffs inhalation Q4H PRN (Reason: Wheezing) RF: 0 Changed losartan [Cozaar] 25 mg tablet 25 mg PO DAILY Qty: 0 RF: 0 Discontinued loperamide 2 mg Capsule 2 mg PO Q2H PRN (Reason: Diarrhea) RF: 0 polyethylene glycol 3350 [Miralax] 17 gram Powder In Packet 17 g PO QDL PRN (Reason: Constipation) RF: 0 sennosides-docusate sodium [Senokot-S] 8.6-50 mg Tablet 1 tab-cap PO QDL PRN (Reason: Constipation) RF: 0 meclizine 12.5 mg Tablet 25 mg PO TID PRN (Reason: Dizziness) RF: 0 bisacodyl 10 mg Suppository [address] DAILY PRN (Reason: Constipation) RF: 0 Fleet Enema 19-7 gram/118 mL Enema [address] DAILY PRN (Reason: Constipation) RF: 0 docusate sodium 100 mg Capsule 100 mg PO BID PRN (Reason: Constipation) RF: 0 heparin (porcine) 5,000 unit/mL Solution 5,000 unit SUBCUT Q8H RF: 0 Breo Ellipta 200-25 mcg/dose Blister With Device 1 inh INHALATION DAILY RF: 0 Discharge Orders: Discharge Order (Routine); Ordered 10/11/19 Ordered By: Sherif Jacobson Admission Data Admit Date/Time: 10/07/19 09:43 Attending Provider: Sherif Jacobsonit Provider: Lj Oconnor Primary Care Provider: Yolanda Blair Other Providers: Suresh Obrien ; Sherif Jacobson ; [facility] Coding Level of Care Code D/C Day Management >30 mins Diagnoses Closed left femoral fracture S72.92XA Acute blood loss anemia D62 History of CVA with residual deficit I69.30 Hypertension I10 Hyperlipidemia E78.5 Osteopenia M85.80 Asthma J45.909 Anxiety F41.9 DVT prophylaxis Z29.9
== END 2019-10-11 16:31 | DRG 481 ==
LOC: ED 07:49 → 2N 09:43 → SUATTDRO 09:43 → 2N 12:04 → 3E 10-08 16:08

== ENCOUNTER 2019-10-16 14:24 | Inpatient (IN) ==
[2019-10-16] MEDS ORDERED: ONDANSETRON INJ 2 MG/ML 2 ML VIAL IV STA (14:34)
[2019-10-16] MEDS ORDERED: SODIUM CHLORIDE 0.9% 500 ML IV SCH (14:45)
[2019-10-16 15:00] LABS: Basophils # (auto) 0.04 K/uL (0-0.2); Basophils % (auto) 0.4 %; Eosinophils % (auto) 3.1 %; Hematocrit (blood only) 31.6 % (37-47); Hemoglobin 10.1 g/dL (12.0-16.0); Immature Granulocytes # (auto) 0.22 K/uL (0.00-0.02); Immature Granulocytes % (auto) 2.3 %; Lymphocytes # (auto) 2.14 K/uL (1.2-3.4); Lymphocytes % (auto) 22.1 %; Mean Corpuscular Volume 93.8 fL (80-100); Mean Platelet Volume 8.9 fL (7.4-10.4); Monocytes # (auto) 0.78 K/uL (0.11-0.59); Monocytes % (auto) 8.1 %; Neutrophils # (auto) 6.19 K/uL (1.4-6.5); Platelet Count 540 K/uL (130-400); RDW Coefficient of Variation 14.6 % (11.5-14.5); RDW Standard Deviation 49.4 fL (36.4-46.3); Red Blood Count 3.37 M/uL (4.2-5.4); White Blood Count 9.67 K/uL (4.8-10.8)
[2019-10-16 15:04] LABS: INR 0.9 (0.9-1.1); Partial Thromboplastin Time 26.8 Seconds (21.0-31.0); Prothrombin Time 9.9 Seconds (9.0-12.0)
--- NOTE | 2019-10-16 15:04 | Emergency Department Note ---
Impression & Plan Post-operative pain, Abnormal LFTs ED Provider Note NAME: NAIN MORAN AGE: 74 SEX: F : 1945 ARRIVES VIA: Ambulance INFORMANT: Patient, ED PROVIDER(S): Олег Harrison DO CHIEF COMPLAINT: Left hip pain HPI: The patient is a 74-year-old female who presented to the emergency department for an evaluation of left hip pain. The patient suffered a fall on the of this month. She was admitted to our facility for an i ntertrochanteric left hip fracture. She was treated surgically with an nail and had been transferred to [facility] for inpatient rehab and further postoperative care. The patient was going to the bathroom today. When she went to stand up she felt severe pain in her left thigh. The patient fell to the ground and was unable to ambulate. At this time the patient states her pain is moderate to sev ere and worsens with any movement of the left hip. She also notices pain with any rotation of left hip. The patient states her pain is severe at this time. The patient states she has significant relief of pain with holding the left leg still. The patient presented to the emergency department via ambulance. She denies any head injury or injury to any other part of her body today. ROS: See above HPI for pertinent positives & negatives. A total of 10 systems reviewed and were otherwise negative. PAST MEDICAL HISTORY: See Below PAST SURGICAL HISTORY: See Below FAMILY HISTORY: See Below SOCIAL HISTORY: See Below HOME MEDICATIONS: See Below ALLERGIES: See Below VITALS: See Below PHYSICAL EXAMINATION: GENERAL: The patient is awake and alert. She is very anxious appearing appears to be in significant pain. EYES: The conjunctivae are clear. The pupils are round and reactive. EARS, NOSE, MOUTH AND THROAT: The nose is without any evidence of any deformity. Mucous membranes are moist. NECK: The neck is nontender and supple. RESPIRATORY: Normal respiratory effort is noted there is no evidence of wheezing rhonchi or rales CARDIOVASCULAR: Regular rate and rhythm noted there no murmurs rubs or gallops normal S1 normal S2. GASTROINTESTINAL: The abdomen is mildly distended but soft. There is ecchymosis over the lower abdomen consistent with injections. MUSCULOSKELETAL/EXTREMITIES: There is no shortening of the left lower extremity but there is significant pain with any range of motion testing. Pain goes into the left inguinal region. Pulses are symmetric in both feet. Skin is warm and dry. SKIN: There is no obvious evidence of any rash. Trace pedal edema bilaterally. NEUROLOGIC: Patient is awake alert and oriented x3. MEDICAL DECISION MAKING: The patient is a 74-year-old female who presented to the emergency department for an evaluation of left hip pain. The patient recently had surgery for a left intertrochanteric hip fracture after a fall. The patient was discharged to [facility] and is been an inpatient rehab. She has been doing well until today when she went to go from a seated position to the bedside commode and felt a sharp pain in her left thigh. The patient has severe pain. She is been unable to ambulate. She was treated with IV pain medication multiple times in the emergency department. X-rays did not reveal any acute fracture and the surgical site looked well. I discussed her case with her primary orthopedic physician as well as the on-call [facility]. They have agreed to evaluate the patient for further management disposition. The patient's pain at this time is still unclear. Pulses are symmetric in both feet. Skin is warm and dry. The thigh compartment does not appear to be tense. Triage Nursing notes reviewed. Prior medical records reviewed Vital Signs: reviewed and remarkable for elevated blood pressure. Differential diagnosis: Fracture, subluxation, dislocation, contusion, ligamentous injury, neurovascular, compartment syndrome, rhabdomyolysis, as well as other pathologies. ER treatment provided: See below Diagnostics interpreted by me: ECG: none Cardiac Monitoring: An order was placed for continuous cardiac monitoring. The monitor shows a rate of 88 with sinus rhythm. Laboratory studies: As stated above and show below. Imaging studies: See below Consultation(s): 1545: I discussed this case with Dr. Adam who is the patient's primary [facility] physician. He has had an opportunity to review the films. At this time he recommends continued pain control and weightbearing as tolerated. 1820: I discussed this case with Dr. Espinoza who is on-call for the [facility] group. They have agreed to evaluate the patient in the emergency department for further management and disposition. Past Med/Surg History Medical History Asthma (Chronic) Benign colonic polyp (Chronic) Cystocele, midline (Chronic) Disc degeneration, lumbar (Chronic) Hyperlipidemia (Chronic) Hypertension (Chronic) Osteopenia (Chronic) Surgical History History of tooth extraction S/P colonoscopy Status post-operative repair of hip fracture (~09/2019) Family History Mother Diabetes Hypertension Myocardial infarction Sister Diabetes Denies family history of Ovarian cancer Prostate cancer Breast cancer Colorectal cancer Social History Preferred Language: Macedonian Communication Ability: Effective Visual Impairment: Partially Limited Hearing Ability: Normal Director Patient Accounting Required: No Beliefs That Will Affect Care: None marital status: Current Living Situation: Rehab Current Living Situation Comment: [facility] current occupational status: retired Feels Safe at Home: Yes Smoking Status: Never smoker Second Hand Exposure: Yes ; Hx Alcohol Use: Yes Alcohol type: wine Alcohol Intake Frequency: Holi days/Special Occasions Hx Substance Use: No Childhood Exposure to Second-Hand Smoke: Yes caffeine: Yes (coffee, diet soda) during the past year weight has: remained stable Dental Care, Regularly: Yes Physical Activity Frequency: Daily Seatbelt Use: always Sunscreen Use: Yes Do you think of yourself as: straight/heterosexual Allergies Allergies Allergy/AdvReac Type Severity Reaction Status Date / Time celecoxib [From Celebrex] Allergy Verified 10/07/19 08:15 Home Meds Home Medications Medication Instructions Recorded Confirmed acetaminophen 325 mg PO QID 10/07/19 10/16/19 albuterol sulfate 1 puffs INHALATION Q4H PRN 10/07/19 10/16/19 aspirin 81 mg PO QAM 10/07/19 10/16/19 escitalopram oxalate 10 mg PO DAILY 10/07/19 10/16/19 fluticasone propionate [Flonase 2 spray INTRANASAL DAILY 10/07/19 10/16/19 Allergy Relief] lorazepam 0.5 mg PO TID PRN 10/07/19 10/16/19 lorazepam 1 mg PO HS PRN 10/07/19 10/16/19 melatonin 3 mg PO HS 10/07/19 10/16/19 oxycodone 5 mg PO ONCE 10/07/19 10/16/19 potassium chloride 20 meq PO BID 10/07/19 10/16/19 Previous Rx's Medication Instructions Recorded budesonide-formoterol HFA 160 2 puffs INH BID #10.2 gm 10/09/18 mcg-4.5 mcg/actuation aerosol inhaler atorvastatin 40 mg tablet 40 mg PO DAILY #90 tab 06/23/19 heparin, porcine (PF) 5,000 unit SUBCUT Q12 #1 ml 10/11/19 losartan [Cozaar] 25 mg PO DAILY #0 tab 10/11/19 Results & Data (ED) Vital Signs Vital Signs - 24 hr 10/16/19 14:36 10/16/19 15:09 10/16/19 16:20 Temperature 36.9 C Temperature Source Oral Pulse Rate 93 H 93 H Pulse Rate from SpO2 Sensor 92 H Pulse Rhythm Regular Respiratory Rate 18 13 Respiratory Effort / Characteristics Non-Labored Spontaneous Respiratory Depth Normal Respiratory Pattern Regular Blood Pressure 191/95 H 173/76 H Blood Pressure Mean 127 115 Pulse Oximetry 96 96 97 Oxygen Delivery Method Room Air Room Air Sepsis Recent Fever Within 48 Hours No Sepsis New/Unexplained Change in Mental Status No Sepsis Action Taken by Nursing No Action Required 10/16/19 16:23 10/16/19 16:30 10/16/19 16:31 Temperature Temperature Source Pulse Rate 93 H 93 H 94 H Pulse Rate from SpO2 Sensor 93 H 94 H 94 H Pulse Rhythm Respiratory Rate 16 14 16 Respiratory Effort / Characteristics Respiratory Depth Respiratory Pattern Blood Pressure 170/70 H Blood Pressure Mean 109 Pulse Oximetry 93 95 95 Oxygen Delivery Method Sepsis Recent Fever Within 48 Hours Sepsis New/Unexplained Change in Mental Status Sepsis Action Taken by Nursing 10/16/19 17:00 10/16/19 17:30 10/16/19 18:00 Temperature Temperature Source Pulse Rate 101 H 98 H 90 Pulse Rate from SpO2 Sensor 101 H Pulse Rhythm Respiratory Rate 16 14 15 Respiratory Effort / Characteristics Respiratory Depth Respiratory Pattern Blood Pressure 155/64 H 159/71 H Blood Pressure Mean 110 94 Pulse Oximetry 97 Oxygen Delivery Method Sepsis Recent Fever Within 48 Hours Sepsis New/Unexplained Change in Mental Status Sepsis Action Taken by Nursing 10/16/19 18:01 Temperature Temperature Source Pulse Rate 90 Pulse Rate from SpO2 Sensor Pulse Rhythm Respiratory Rate 16 Respiratory Effort / Characteristics Respiratory Depth Respiratory Pattern Blood Pressure 193/81 H Blood Pressure Mean 120 Pulse Oximetry 93 Oxygen Delivery Method Room Air Sepsis Recent Fever Within 48 Hours Sepsis New/Unexplained Change in Mental Status Sepsis Action Taken by Correction Medications Current Medication List: was personally reviewed by me Laboratory Data Attestation: I reviewed the patient's lab results. Result diagrams: 10/16/19 14:45 10/16/19 14:45 Lab Results 10/16/19 10/16/19 10/16/19 Range/Units 14:45 14:45 14:45 WBC 9.67 (4.8-10.8) K/uL RBC 3.37 L (4.2-5.4) M/uL Hgb 10.1 L (12.0-16.0) g/dL Hct 31.6 L (37-47) % MCV 93.8 (80-100) fL MCH 30.0 (25-34) pg MCHC 32.0 (32-36) g/dL RDW Std Deviation 49.4 H (36.4-46.3) fL RDW Coeff of Cuco 14.6 H (11.5-14.5) % Plt Count 540 H (130-400) K/uL MPV 8.9 (7.4-10.4) fL Immature Gran % (Auto) 2.3 % Neut % (Auto) 64.0 % Lymph % (Auto) 22.1 % [place] % (Auto) 8.1 % Eos % (Auto) 3.1 % Baso % (Auto) 0.4 % Neut # (Auto) 6.19 (1.4-6.5) K/uL Lymph # (Auto) 2.14 (1.2-3.4) K/uL [place] # (Auto) 0.78 H (0.11-0.59) K/uL Eos # (Auto) 0.30 (0-0.5) K/uL Baso # (Auto) 0.04 (0-0.2) K/uL Immature Gran # (Auto) 0.22 H (0.00-0.02) K/uL PT 9.9 (9.0-12.0) Seconds INR 0.9 (0.9-1.1) APTT 26.8 (21.0-31.0) Seconds PTT Ratio 1.0 Sodium 138 (136-145) mmol/L Potassium 3.8 (3.5-5.1) mmol/L Chloride 105 (98-107) mmol/L Carbon Dioxide 27 (21-32) mmol/L Anion Gap 6.0 (3-11) BUN 11 (7-18) mg/dl Creatinine 0.70 (0.6-1.2) mg/dl Est Cr Clr Drug Dosing Not Reportable Est GFR ( Amer) 100.3 Est GFR (Non-Af Amer) 86.6 BUN/Creatinine Ratio 16.3 (10-20) Glucose 134 H (70-99) mg/dl Calcium 9.4 (8.5-10.1) mg/dl Magnesium (1.8-2.4) mg/dl Total Bilirubin 0.4 (0.2-1) mg/dl AST 198 H (15-37) U/L ALT 354 H (12-78) U/L Alkaline Phosphatase 420 H (45-117) U/L Total Creatine Kinase (26-192) U/L Total Protein 7.8 (6.4-8.2) gm/dl Albumin 3.0 L (3.4-5.0) gm/dl Globulin 4.8 H (2.5-4.0) gm/dl Albumin/Globulin Ratio 0.6 L (0.9-2) Lipase 112 (73-393) U/L Urine Color Urine Appearance (Clear) Urine pH (4.5-7.5) Ur Specific [place] (1.000-1.030) Urine Protein (Negative) Urine Glucose (UA) (Negative) Urine Ketones (Negative) Urine Blood (Negative) Urine Nitrite (Negative) Urine Bilirubin (Negative) Urine Urobilinogen (Negative) Ur Leukocyte Esterase (Negative) Acetaminophen (10-30) ug/ml 10/16/19 10/16/19 10/16/19 Range/Units 14:45 14:45 16:48 WBC (4.8-10.8) K/uL RBC (4.2-5.4) M/uL Hgb (12.0-16.0) g/dL Hct (37-47) % MCV (80-100) fL MCH (25-34) pg MCHC (32-36) g/dL RDW Std Deviation (36.4-46.3) fL RDW Coeff of Cuco (11.5-14.5) % Plt Count (130-400) K/uL MPV (7.4-10.4) fL Immature Gran % (Auto) % Neut % (Auto) % Lymph % (Auto) % [place] % (Auto) % Eos % (Auto) % Baso % (Auto) % Neut # (Auto) (1.4-6.5) K/uL Lymph # (Auto) (1.2-3.4) K/uL [place] # (Auto) (0.11-0.59) K/uL Eos # (Auto) (0-0.5) K/uL Baso # (Auto) (0-0.2) K/uL Immature Gran # (Auto) (0.00-0.02) K/uL PT (9.0-12.0) Seconds INR (0.9-1.1) APTT (21.0-31.0) Seconds PTT Ratio Sodium (136-145) mmol/L Potassium (3.5-5.1) mmol/L Chloride (98-107) mmol/L Carbon Dioxide (21-32) mmol/L Anion Gap (3-11) BUN (7-18) mg/dl Creatinine (0.6-1.2) mg/dl Est Cr Clr Drug Dosing Est GFR ( Amer) Est GFR (Non-Af Amer) BUN/Creatinine Ratio (10-20) Glucose (70-99) mg/dl Calcium (8.5-10.1) mg/dl Magnesium 2.2 (1.8-2.4) mg/dl Total Bilirubin (0.2-1) mg/dl AST (15-37) U/L ALT (12-78) U/L Alkaline Phosphatase (45-117) U/L Total Creatine Kinase 75 (26-192) U/L Total Protein (6.4-8.2) gm/dl Albumin (3.4-5.0) gm/dl Globulin (2.5-4.0) gm/dl Albumin/Globulin Ratio (0.9-2) Lipase (73-393) U/L Urine Color Yellow Urine Appearance Clear (Clear) Urine pH 8.0 H (4.5-7.5) Ur Specific [place] 1.008 (1.000-1.030) Urine Protein Negative (Negative) Urine Glucose (UA) Negative (Negative) Urine Ketones Negative (Negative) Urine Blood Negative (Negative) Urine Nitrite Negative (Negative) Urine Bilirubin Negative (Negative) Urine Urobilinogen Negative (Negative) Ur Leukocyte Esterase Negative (Negative) Acetaminophen < 2 L (10-30) ug/ml Administered Medications Fentanyl Citrate (Fentanyl Citrate) 50 mcg IV Q15M PRN PRN Reason: Pain Stop: 10/30/19 14:33 Last Admin: 10/16/19 15:40 Dose: 50 mcg Documented by: [id number] Admin: 10/16/19 15:05 Dose: 50 mcg Documented by: [id number] Discontinued Medications Cyclobenzaprine HCl (Flexeril) 5 mg PO ONE STA Stop: 10/16/19 17:16 Last Admin: 10/16/19 17:26 Dose: 5 mg Documented by: [id number] Hydromorphone HCl (Dilaudid) 1 mg IV NOW STA Stop: 10/16/19 15:58 Last Admin: 10/16/19 16:05 Dose: 1 mg Documented by: [id number] Sodium Chloride (Nss) 500 mls @ 999 mls/hr IV .Q31M YULY Stop: 10/16/19 15:15 Last Infusion: 10/16/19 15:49 Dose: 0 mls/hr Documented by: [id number] Admin: 10/16/19 15:05 Dose: 999 mls/hr Documented by: [id number] Ondansetron HCl (Zofran) 4 mg IV NOW STA Stop: 10/16/19 14:35 Last Admin: 10/16/19 15:05 Dose: 4 mg Documented by: [id number] Imaging Data Radiologist's Impression: XR femur LT 2V routine CLINICAL HISTORY: pain pain COMPARISON: 10/08/2019 DISCUSSION: Operative changes consistent with a left hip nailing procedure. This appearance is unchanged compared to the prior study. No evidence for a new or interval process. Alignment remains anatomic. No evidence for acetabular protrusion. Postoperative soft tissue change laterally. IMPRESSION: Stable postoperative change post left hip pinning. No new or interval findings. ACT 112: Negative or not required by law. The above report was generated using voice recognition software. It may contain grammatical, syntax or spelling errors. Electronically signed by: Dale Glass M.D. 10/16/2019 3:34 PM Dictated: 10/16/19 1533 Transcribed: 10/16/19 1533 Blood Pressure Blood Pressure Findings: Elevated blood pressure Blood Pressure Disposition: further management by hospitalist Discharge Plan Visit Data Chief Complaint: Hip Pain Stated Complaint: Increased Hip Pain ED Provider: Олег Harrison Discharge Problem: Post-operative pain, Abnormal LFTs Patient Disposition: Being Evaluated by Hospitalist Condition: Good Forms Stand Alone Forms: My [facility] Prescriptions Prescriptions: No Action atorvastatin 40 mg tablet 40 mg PO DAILY Qty: 90 RF: 3 Symbicort 160-4.5 mcg/actuation HFA aerosol inhaler 2 puffs INH BID Qty: 10.2 RF: 5 acetaminophen 325 mg Tablet 325 mg PO QID RF: 0 melatonin 3 mg Tablet 3 mg PO HS RF: 0 aspirin 81 mg Tablet,Delayed Release (Dr/Ec) 81 mg PO QAM RF: 0 potassium chloride 20 mEq tablet,ER particles/crystals 20 meq PO BID RF: 0 lorazepam 0.5 mg tablet 0.5 mg PO TID PRN (Reason: Anxiety) RF: 0 lorazepam 1 mg Tablet 1 mg PO HS PRN (Reason: Anxiety) RF: 0 fluticasone propionate [Flonase Allergy Relief] 50 mcg/actuation [place],Suspension 2 spray INTRANASAL DAILY RF: 0 oxycodone 5 mg Tablet 5 mg PO ONCE RF: 0 escitalopram oxalate 10 mg tablet 10 mg PO DAILY RF: 0 albuterol sulfate 90 mcg/actuation HFA aerosol inhaler 1 puffs inhalation Q4H PRN (Reason: Wheezing) RF: 0 losartan [Cozaar] 25 mg tablet 25 mg PO DAILY Qty: 0 RF: 0 heparin, porcine (PF) 5,000 unit/0.5 mL Syringe 5,000 unit subcut Q12 Qty: 1 RF: 0 Referrals Referrals: [facility] [Primary Care Provider] -
[2019-10-16] MEDS: fentaNYL citrate 100 MCG/2 ML VIAL IV PRN ×3 (15:05→18:19)
[2019-10-16 15:08] LABS: Alanine Aminotransferase 354 U/L (12-78); Aspartate Aminotransferase 198 U/L (15-37); BUN Creatinine Ratio 16.3 (10-20); Blood Urea Nitrogen 11 mg/dl (7-18); Calcium 9.4 mg/dl (8.5-10.1); Carbon Dioxide 27 mmol/L (21-32); Chloride 105 mmol/L (98-107); Est GFR (African American) 100.3; Est GFR (Non-African American) 86.6; Glucose 134 mg/dl (70-99); Lipase 112 U/L (73-393); Potassium 3.8 mmol/L (3.5-5.1); Sodium 138 mmol/L (136-145)
[2019-10-16 15:11] LABS: Albumin Globulin Ratio 0.6 (0.9-2); Alkaline Phosphatase 420 U/L (45-117); Bilirubin,Total 0.4 mg/dl (0.2-1); Globulin 4.8 gm/dl (2.5-4.0); Total Protein 7.8 gm/dl (6.4-8.2)
--- NOTE | 2019-10-16 15:35 | XRay Report ---
XR femur LT 2V routine CLINICAL HISTORY: pain pain COMPARISON: 10/08/2019 DISCUSSION: Operative changes consistent with a left hip nailing procedure. This appearance is unchan ged compared to the prior study. No evidence for a new or interval process. Alignment remains anatomic. No evidence for acetabular pro trusion. Postoperative soft tissue change laterally. IMPRESSION: Stable postoperative change post left hip pinning. No new or interval findings. ACT 112: Negative or not required by law. The above report was generated using voice recognition software. It may contain grammatical, syntax or spelling errors. Electronically signed by: Dale Glass M.D. 10/16/2019 3:34 PM
[2019-10-16] MEDS ORDERED: HYDROmorphone INJ 1 MG/ML SYRINGE IV STA (15:57)
--- NOTE | 2019-10-16 16:31 | History & Physical Report ---
Date of Service October 16, 2019 Assessment & Plan (1) Left thigh pain: Appears to be muscle spasms related to her recent surgery Magnesium level normal CK level normal Corrected Ca 10.2 - unlikely contributory PT/OT evals Consult orthopedics for further recommendations (2) Abnormal LFTs: Mildly elevated since CVA but appears to be worse currently On atorvastatin 40mg PO daily prior to elevation in LFTs but was increased to 80mg at [place] when she had the stroke. Hold statin currently improvement in LFTs. US liver unremarkable Iron studies with AM labs Viral hepatitis with AM labs Trend CMP - unclear if related to currently muscle cramps (3) Status post-operative repair of hip fracture: Surgical incision C/D/I. (4) Hypertension: Unclear why losartan cut to 25mg on discharge last admission as never particularly hypotensive. Will increase back to 75mg PO daily based on current hypertension, although likely somewhat pain induced. (5) Hyperlipidemia: Hold atorvastatin while LFTs elevated (6) Asthma: Albuterol PRN (7) History of CVA with residual deficit: Left leg weakness with mild foot drop of this side (8) Anxiety: Continue lexapro 10mg PO daily Lorazepam PRN (9) Hydronephrosis of right kidney: Picked up incidentally on US. UA normal without blood. No Hx renal stones. Discussed with patient US vs. CT to further investigate incidental finding and she declines further imaging at this stage due to her ongoing pain. Cr around baseline (10) DVT prophylaxis: Lovenox 40mg SQ daily Admission and Anticipated Discharge Date Admission Date: 10/16/2019 History of Present Illness Chief Complaint: Left thigh pain Primary Care Provider: [facility] Marcie Martins is a 74 year old female with recent left frontoparietal stroke (residual left lower extremity weakness) and left hip fracture (s/p IM nail) who presents from [facility] rehabilitation with sudden onset left thigh pain on standing. When she was having significant pain after the operation and was not moving her leg a lot prior to discharge here. However at [facility] she was slowly moving her leg better without pain. Pain only comes with movement of her leg. Severity 10 out of 10 on movement. Feels like a cramping mostly in the thigh but can go all the way down to her ankles. Initial plan from the ER after pain medication and x-ray showing hardware in place was to discharge to [facility] however patient was in such severe pain she was unable to be moved from the bed. She has been ambulatory with a walker at [facility]. Allergies Allergy/AdvReac Type Severity Reaction Status Date / Time celecoxib [From Celebrex] Allergy Verified 10/07/19 08:15 Home Medications Home Medications Medication Instructions Recorded Confirmed Type budesonide-formoterol HFA 160 2 puffs INH BID #10.2 gm 10/09/18 10/16/19 Rx mcg-4.5 mcg/actuation aerosol inhaler atorvastatin 40 mg tablet 40 mg PO DAILY #90 tab 06/23/19 10/16/19 Rx acetaminophen 325 mg PO QID 10/07/19 10/16/19 History albuterol sulfate 1 puffs INHALATION Q4H PRN 10/07/19 10/16/19 History aspirin 81 mg PO QAM 10/07/19 10/16/19 History escitalopram oxalate 10 mg PO DAILY 10/07/19 10/16/19 History fluticasone propionate [Flonase 2 spray INTRANASAL DAILY 10/07/19 10/16/19 History Allergy Relief] lorazepam 0.5 mg PO TID PRN 10/07/19 10/16/19 History lorazepam 1 mg PO HS PRN 10/07/19 10/16/19 History melatonin 3 mg PO HS 10/07/19 10/16/19 History oxycodone 5 mg PO ONCE 10/07/19 10/16/19 History potassium chloride 20 meq PO BID 10/07/19 10/16/19 History heparin, porcine (PF) 5,000 unit SUBCUT Q12 #1 ml 10/11/19 10/16/19 Rx losartan [Cozaar] 25 mg PO DAILY #0 tab 10/11/19 10/16/19 Rx Past Med/Surg History Medical History Asthma (Chronic) Benign colonic polyp (Chronic) Closed hip fracture (Inactive) Cystocele, midline (Chronic) Disc degeneration, lumbar (Chronic) History of CVA with residual deficit Hyperlipidemia (Chronic) Hypertension (Chronic) Osteopenia (Chronic) Surgical History History of tooth extraction S/P colonoscopy Status post-operative repair of hip fracture (~09/2019) Family History Mother Diabetes Hypertension Myocardial infarction Sister Diabetes Denies family history of Ovarian cancer Prostate cancer Breast cancer Colorectal cancer Social History Preferred Language: Kittitian Communication Ability: Effective Visual Impairment: Partially Limited Hearing Ability: Normal Senior Accounts Payable Clerk Required: No Beliefs That Will Affect Care: None marital status: Current Living Situation: Rehab Current Living Situation Comment: [facility] current occupational status: retired Other Information That Helps Us Care for You: No Feels Safe at Home: Yes Safety Concerns: Feels Safe At This Time Smoking Status: Never smoker Second Hand Exposure: Yes ; Hx Alcohol Use: Yes Alcohol type: wine Alcohol Intake Frequency: Holiday s/Special Occasions Hx Substance Use: No Childhood Exposure to Second-Hand Smoke: Yes caffeine: Yes (coffee, diet soda) during the past year weight has: remained stable Dental Care, Regularly: Yes Physical Activity Frequency: Daily Seatbelt Use: always Sunscreen Use: Yes Do you think of yourself as: straight/heterosexual Review of Systems Review of Systems: All systems reviewed & are unremarkable except as noted in HPI & below Physical Exam Constitutional: well developed, well nourished and + acute distress (Left lower extremity pain) Eyes: + anicteric sclerae; normal pupil size ENMT: external ear and nose normal, oropharynx normal Neck: trachea midline, no thyromegaly Respiratory: normal respiratory effort, lungs clear to auscultation Cardiovascular: RRR, no murmur, no edema Extremities: no calf tenderness Gastrointestinal (Abdomen): normal bowel sounds, soft, nontender, no hepatosplenomegaly Musculoskeletal: Significant pain on any hip or thigh movements. No pain on palpation over her thigh muscles. No central spinal or left paraspinal tenderness on palpation Skin: no rashes, warm and dry Surgical incision appears clean dry and intac t without surrounding cellulitis or pain on palpation around the incision Neurologic: + focal motor deficit (Unable to fully examine left lower extremity due to pain, appears to have a left foot drop and weakness with ankle dorsiflexion) and awake; not confused Speech / Cognition: normal speech Psychiatric: A+Ox3, euthymic affect Genitourinary: no CVA tenderness Results & Data Results & Data ([facility]) Vital Signs (Past 12 Hours) Vital Signs Temp Pulse Resp BP Pulse Ox 10/16/19 15:09 96 10/16/19 14:36 36.9 C 93 H 18 191/95 H 96 Diagnostic Findings XR femur LT 2V routine IMPRESSION: Stable postoperative change post left hip pinning. No new or interval findings. Code Status & VTE Plan Code Status Full VTE Prophylaxis Plan VTE Prophylaxis will be ordered: Yes PG Care Time/CCT Total # of Minutes Spent Total Time Spent with Patient: Total time spent is greater than 50% in coordination of care (as documented) at patient's floor/unit and/or counseling patient: Coding Level of Care Code 49066 OBS Care - Level 3 Diagnoses Left thigh pain M79.652 Abnormal LFTs R94.5 Status post-operative repair of hip fracture Z98.890; Z87.81 Hypertension I10 Hypertension type: essential hypertension Hyperlipidemia E78.5 Asthma J45.909 History of CVA with residual deficit I69.30 Anxiety F41.9 Hydronephrosis of right kidney N13.30 DVT prophylaxis Z29.9 (1) Hypertension Hypertension type: essential hypertension Qualified Code(s): I10 - Essential (primary) hypertension
[2019-10-16 16:59] LABS: Appearance Urine Clear (Clear); Bilirubin Urine Negative (Negative); Blood Urine Negative (Negative); Color Urine Yellow; Glucose Urine UA Negative (Negative); Ketones Urine Negative (Negative); Leukocyte Esterase Urine Negative (Negative); Nitrite Urine Negative (Negative); Protein Urine Negative (Negative); Specific Gravity Urine 1.008 (1.000-1.030); Urobilinogen Urine Negative (Negative)
[2019-10-16] MEDS ORDERED: CYCLOBENZAPRINE HCL 5 MG TAB PO STA (17:15)
[2019-10-16 17:53] LABS: Magnesium 2.2 mg/dl (1.8-2.4)
--- NOTE | 2019-10-16 18:45 | Ultrasound Report ---
US liver CLINICAL HISTORY: elevated liver transaminases abnormal liver function tests COMPARISON STUDY: No previous studies for comparison. FINDINGS: Normal gallbladder. Common bile duct 4 mm. Liver is uniform throughout. Pancreas and right kidney were evaluated. Pancreas is unremarkable. Right kidney shows evidence for moderate hydroureter onephrosis. IMPRESSION: Moderate right hydroureteronephrosis. Otherwise negative study. ACT 112: Negative or not required by law. The above report was generated using voice recognition software. It may contain grammatical, syntax or spelling errors. Electronically signed by: Dale Glass M.D. 10/16/2019 6:44 PM
[2019-10-16] MEDS ORDERED: MAGNESIUM HYDROXIDE SUSP 30 ML UDC PO PRN (19:08)
[2019-10-16] MEDS ORDERED: POLYETHYLENE (MIRALAX) 17 GM PACK PO PRN (19:08)
[2019-10-16] MEDS ORDERED: ALUMINUM/MAGNESIUM SUSP 30 ML UDC PO PRN (19:08)
[2019-10-16] MEDS ORDERED: ONDANSETRON INJ 2 MG/ML 2 ML VIAL IV PRN (19:08)
[2019-10-16] MEDS: LORazepam 0.5 MG TAB PO PRN (19:31)
[2019-10-16] MEDS: HYDROmorphone INJ 0.5 MG/0.5 ML SYR IV PRN (19:42)
[2019-10-16] MEDS ORDERED: LOSARTAN POTASSIUM 25 MG TAB PO ONE (20:00)
[2019-10-16] MEDS ORDERED: HydrALAZINE HCL 20 MG/ML VIAL IV PRN (20:57)
[2019-10-16] MEDS ORDERED: CYCLOBENZAPRINE HCL 5 MG TAB PO SCH (21:00)
[2019-10-16] MEDS: CYCLOBENZAPRINE HCL 10 MG TAB PO SCH (22:01)
[2019-10-16] MEDS: MELATONIN 3 MG TAB PO SCH (22:02)
[2019-10-16] MEDS: OXYCODONE HCL IR 5 MG TAB (IMMEDIATE RELEASE) PO PRN (22:06)
[2019-10-16] MEDS: POTASSIUM CHLORIDE 20 MEQ TABCR PO SCH (22:07)
[2019-10-16] MEDS: ENOXAPARIN INJ 40 MG/0.4 ML SYR SQ SCH (22:23)
[2019-10-17] MEDS: HYDROmorphone INJ 0.5 MG/0.5 ML SYR IV PRN ×5 (01:36→23:44)
[2019-10-17] MEDS: OXYCODONE HCL IR 5 MG TAB (IMMEDIATE RELEASE) PO PRN ×4 (05:22→20:46)
[2019-10-17 05:51] LABS: Hematocrit (blood only) 30.7 % (37-47); Hemoglobin 9.8 g/dL (12.0-16.0); Mean Corpuscular Hemoglobin 30.3 pg (25-34); Mean Corpuscular Hgb Conc 31.9 g/dL (32-36); Mean Platelet Volume 8.9 fL (7.4-10.4); Platelet Count 568 K/uL (130-400); RDW Coefficient of Variation 14.9 % (11.5-14.5); RDW Standard Deviation 50.7 fL (36.4-46.3); Red Blood Count 3.23 M/uL (4.2-5.4); White Blood Count 10.62 K/uL (4.8-10.8)
[2019-10-17 06:21] LABS: Albumin Level 2.7 gm/dl (3.4-5.0); BUN Creatinine Ratio 16.9 (10-20); Creatinine Clr Calc Pharmacy 79.1 ml/min; Est GFR (African American) 106.1; Est GFR (Non-African American) 91.6; Potassium 4.2 mmol/L (3.5-5.1)
[2019-10-17 06:30] LABS: Albumin Globulin Ratio 0.6 (0.9-2); Bilirubin,Total 0.7 mg/dl (0.2-1); Ferritin 960.8 ng/ml (8-388); Globulin 4.4 gm/dl (2.5-4.0); T4 Free Thyroxine 1.16 ng/dl (0.8-1.6); Thyroid Stimulating Hormone 0.768 uIu/ml (0.300-4.500); Total Protein 7.1 gm/dl (6.4-8.2)
[2019-10-17] MEDS: LOSARTAN POTASSIUM 25 MG TAB PO SCH (08:33)
[2019-10-17] MEDS: ASPIRIN 81 MG ECTAB PO SCH (08:33)
[2019-10-17] MEDS: CYCLOBENZAPRINE HCL 10 MG TAB PO SCH ×3 (08:33→20:47)
[2019-10-17] MEDS: FLUTICASONE PROPIONATE NA SPR 16 GM BTL NAE SCH (08:34)
[2019-10-17] MEDS: POTASSIUM CHLORIDE 20 MEQ TABCR PO SCH ×2 (08:34→20:47)
[2019-10-17] MEDS: ESCITALOPRAM OXALATE 10 MG TAB PO SCH (08:38)
[2019-10-17] MEDS: FLUTICASONE/VILANTEROL 200/25MCG 14 PUFFS/INHALER INH SCH (08:41)
[2019-10-17] MEDS ORDERED: LOSARTAN POTASSIUM 25 MG TAB PO SCH (09:00)
[2019-10-17 09:14] LABS: Hepatitis B Surface Antigen Neg (Neg)
[2019-10-17 09:41] LABS: Hepatitis C IgG 13Yrs+Old_Rflx Neg (Neg)
[2019-10-17] MEDS: LORazepam 0.5 MG TAB PO PRN (10:17)
--- NOTE | 2019-10-17 10:38 | Orthopedic Consultation ---
Date of Consultation October 17, 2019 Assessment & Plan (1) Post-operative pain: Unfortunately she is having a lot of postoperative pain and spasms around her left hip. This is certainly more than usual. Based on her history and her brief physical examination I would think that the fracture had further displaced and there was failure of the hardware. However, the x-rays look identical to the initial postoperative x-rays. I am not sure what is causing all of her pain. Her liver function tests are significantly elevated and she does have some stroke symptoms that she is recovering from on the left side. At this point I can only recommend pain control and ambulation as tolerated. If she does not improve over the next day or so with pain medications, then we could try either another x-ray of her hip or a CT scan to see if there is anything additional going on. At this time though I think we should just try some pain management and see if we get her back up and walking on it again. I will continue to follow closely. Present on Admission?: Yes History of Present Illness Reason for Consultation: Left hip pain Attending Physician: Sherif Jacobson MD History of Present Illness Marcie is a pleasant 74-year-old female who recently suffered a stroke that affected her left side. She was having some residual weakness on the left side but no profound weakness. She was just starting to use a walker and ready to return home when she fell on October 06 and sustained a left intertrochanteric hip fracture. She came to the emergency room and was admitted to the hospital. She underwent an IM nail of her left hip the following day. She was initially doing well postoperatively and was back at [facility]. Then yesterday she was getting up to use the bathroom when she had severe pain and spasming of her left hip and groin. She was unable to bear weight on the left side. She came back to the emergency room and was admitted to the medical service. The x-rays of her hip are negative. There is no change in the alignment of the hardware or the fracture from her initial postoperative x-rays. Her liver function tests are significantly elevated. Orthopedics was consulted to evaluate and treat. Allergies Allergy/AdvReac Type Severity Reaction Status Date / Time celecoxib [From Celebrex] Allergy Verified 10/07/19 08:15 Home Medications Home Medications Medication Instructions Recorded Confirmed Type budesonide-formoterol HFA 160 2 puffs INH BID #10.2 gm 10/09/18 10/16/19 Rx mcg-4.5 mcg/actuation aerosol inhaler atorvastatin 40 mg tablet 40 mg PO DAILY #90 tab 06/23/19 10/16/19 Rx acetaminophen 325 mg PO QID 10/07/19 10/16/19 History albuterol sulfate 1 puffs INHALATION Q4H PRN 10/07/19 10/16/19 History aspirin 81 mg PO QAM 10/07/19 10/16/19 History escitalopram oxalate 10 mg PO DAILY 10/07/19 10/16/19 History fluticasone propionate [Flonase 2 spray INTRANASAL DAILY 10/07/19 10/16/19 History Allergy Relief] lorazepam 0.5 mg PO TID PRN 10/07/19 10/16/19 History lorazepam 1 mg PO HS PRN 10/07/19 10/16/19 History melatonin 3 mg PO HS 10/07/19 10/16/19 History oxycodone 5 mg PO ONCE 10/07/19 10/16/19 History potassium chloride 20 meq PO BID 10/07/19 10/16/19 History heparin, porcine (PF) 5,000 unit SUBCUT Q12 #1 ml 10/11/19 10/16/19 Rx losartan [Cozaar] 25 mg PO DAILY #0 tab 10/11/19 10/16/19 Rx Patient History Medical History Asthma (Chronic) Benign colonic polyp (Chronic) Closed hip fracture (Inactive) Cystocele, midline (Chronic) Disc degeneration, lumbar (Chronic) History of CVA with residual deficit Hyperlipidemia (Chronic) Hypertension (Chronic) Osteopenia (Chronic) Surgical History History of tooth extraction S/P colonoscopy Status post-operative repair of hip fracture (~09/2019) Family History Mother Diabetes Hypertension Myocardial infarction Sister Diabetes Denies family history of Ovarian cancer Prostate cancer Breast cancer Colorectal cancer Social History Preferred Language: Amharic Communication Ability: Effective Visual Impairment: Partially Limited Hearing Ability: Normal Membership Advisor Required: No Beliefs That Will Affect Care: None marital status: Current Living Situation: Rehab Current Living Situation Comment: [facility] current occupational status: retired Other Information That Helps Us Care for You: No Feels Safe at Home: Yes Safety Concerns: Feels Safe At This Time Smoking Status: Never smoker Second Hand Exposure: Yes ; Hx Alcohol Use: Yes Alcohol type: wine Alcohol Intake Frequency: Holidays/Special Occasions Hx Substance Use: No Childhood Exposure to Second-Hand Smoke: Yes caffeine: Yes (coffee, diet soda) during the past year weight has: remained stable Dental Care, Regularly: Yes Physical Activity Frequency: Daily Seatbelt Use: always Sunscreen Use: Yes Do you think of yourself as: straight/heterosexual Review of Systems Review of Systems: All systems reviewed & are unremarkable except as noted in HPI & below Physical Exam Constitutional: WD/WN, vitals as above Eyes: PERRL, conjunctivae normal, anicteric sclerae ENMT: external ear and nose normal, oropharynx normal Neck: trachea midline, no thyromegaly Respiratory: normal respiratory effort Cardiovascular: RRR, no murmur, no edema Gastrointestinal (Abdomen): normal bowel sounds, soft, nontender, no hepatosplenomegaly Musculoskeletal: On physical examination of the left hip, the left leg is shortened and externally rotated. She is severe pain with any motion of the left hip. There are dressings over the incisions that are clean and dry. She was asking that I not touch her left leg due to the pain and spasms. She does have minimal motion of her foot and ankle. Psychiatric: A+Ox3, euthymic affect Results & Data ([facility]) Vital Signs (Past 12 Hours) Vital Signs Temp Pulse Resp BP Pulse Ox 10/17/19 07:51 37.1 C 92 H 18 177/66 H 97 10/17/19 02:27 91 H 147/73 H 10/17/19 01:40 36.8 C 81 16 188/76 H 98 Diagnostic Findings X-rays of the left hip were reviewed in detail and compared directly to the postoperative x-rays. I will see any change in the alignment of the hardware or the fracture. The x-rays look identical to the initial postoperative x-rays. 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 PG Care Time/CCT Total # of Minutes Spent Total Time Spent with Patient: Total time spent is greater than 50% in coordination of care (as documented) at patient's floor/unit and/or counseling patient: Coding Level of Care Code None Diagnoses Post-operative pain G89.18
--- NOTE | 2019-10-17 10:44 | Hospitalist Progress Note ---
Date of Service October 17, 2019 Assessment & Plan (1) Left thigh pain: Appears to be muscle spasms related to her recent surgery Magnesium level normal CK level normal Corrected Ca 10.2 - unlikely contributory PT/OT evals Consult orthopedics for further recommendations - per surgery, her Xrays do not appear changed. They recommend pain control and ambulation and CT which is pending. PT/OT evals (2) Abnormal LFTs: Mildly elevated since CVA but appears to be worse currently - now trending down On atorvastatin 40mg PO daily prior to elevation in LFTs but was increased to 80mg at [place] when she had the stroke. Hold statin currently improvement in LFTs. US liver unremarkable Iron studies with AM labs - show decreased transferrin and increased Ferritin but iron was normal. Ferritin might be an acute phase reactant as platelets are also high Viral hepatitis with AM labs - hep C antibody negative Trend CMP - unclear if related to currently muscle cramps (3) Status post-operative repair of hip fracture: Surgical incision C/D/I. (4) Hypertension: Unclear why losartan cut to 25mg on discharge last admission as never particularly hypotensive - increased back to 75mg PO Patient continues to be somewhat hypertensive but this is likely partially pain induced (5) Hyperlipidemia: Hold atorvastatin while LFTs elevated (6) Asthma: Albuterol PRN (7) History of CVA with residual deficit: 09/09/19 Left leg weakness with mild foot drop of this side Continue baby ASA, hold atorvastatin as above (8) Anxiety: Continue lexapro 10mg PO daily Lorazepam PRN (9) Hydronephrosis of right kidney: Picked up incidentally on US. UA normal without blood. No Hx renal stones. Cr around baseline Urology consult Abdomen/pelvis CT pending (10) DVT prophylaxis: Lovenox 40mg SQ daily Admission and Anticipated Discharge Date Admission Date: October 16, 2019 Subjective Ms. Martins is very painful when moving at all but is comfortable if laying still. Unable to reach by phone and left a message. ROS Constitutional: no chills, aches, sweats or fever Respiratory: no sob,cough, sputum, or wheezing Cardiac: no chest pain, palpitations, edema, orthopnea or lightheadedness GI: no abdominal pain, nausea, vomiting, diarrhea or constipation : no dysuria or hesitancy Extremities: no joint pain or weakness Skin: no rash All other systems reviewed and negative Physical Exam Physical Exam: General: no distress Eyes: normal inspection, PERLL Respiratory: chest non tender, clear to auscultation, normal breath sounds, no respiratory distress, no accessory muscle use Cardiac: regular rate and rhythm, no rub or gallop, no murmur, no edema, no jvd GI/: active bowel sounds, no abd pain or tenderness, soft, non distended Extremities: normal range of motion, normal strength, non tender Neuro/Psych: alert and oriented x 3, normal mood and affect Skin: normal color, dry Results & Data Results & Data ([facility]) Vital Signs (Past 12 Hours) Vital Signs Temp Pulse Resp BP Pulse Ox 10/17/19 07:51 37.1 C 92 H 18 177/66 H 97 10/17/19 02:27 91 H 147/73 H 10/17/19 01:40 36.8 C 81 16 188/76 H 98 PG Care Time/CCT Total # of Minutes Spent Total Time Spent with Patient: Total time spent is greater than 50% in coordination of care (as documented) at patient's floor/unit and/or counseling patient: Coding Level of Care Code 93466 Subseq Hosp Care Lvl 3 Diagnoses Left thigh pain M79.652 Abnormal LFTs R94.5 Status post-operative repair of hip fracture Z98.890; Z87.81 Hypertension I10 Hypertension type: essential hypertension Hyperlipidemia E78.5 Asthma J45.909 History of CVA with residual deficit I69.30 Anxiety F41.9 Hydronephrosis of right kidney N13.30 DVT prophylaxis Z29.9 (1) Hypertension Hypertension type: essential hypertension Qualified Code(s): I10 - Essential (primary) hypertension
--- NOTE | 2019-10-17 11:44 | CT Scan Report ---
ABDOMEN AND PELVIS CT WITHOUT CONTRAST CT DOSE: 289.57 mGy.cm HISTORY: right hydronephrosis ?cause TECHNIQUE: Multiaxial CT images of the abdomen and pelvis were performed without contrast. A dose lo wering technique was utilized adhering to the principles of ALARA. COMPARISON STUDY: Abdominal ultrasound 10/16/2019. FINDINGS: Punctate calcified granuloma within the left lower lobe. No pneumoperitoneum. No pneumatosi s. Internal fixation of a left intertrochanteric femoral fracture. Left lateral hip skin neetu from the recent postoperative change. The unenhanced liver, gallbladder, pancreas, spleen, and adrenal gl ands unremarkable. Moderate calcified plaque within the normal caliber abdominal aorta. No retroperit hernández or pelvic lymphadenopathy. There is a 6 mm stone within the lower pole of the left kidney. Ther e is also a punctate stone within the upper pole of the left kidney. No definite right renal calculi. The right-sided hydronephrosis has resolved in the interval. Bladder is decompressed by Patton cathet er. There is pelvic floor collapse. The uterus and bilateral adnexa are unremarkable. Mild left hydro ureteronephrosis to the level of the distal left ureter where there is a focal caliber change 5 cm pr oximal to the left ureterovesical junction. This is best seen on image 345. Is a punctate calcificati on adjacent to the distal left ureter on image 324. This does not appear to be within the ureter and therefore favors a phlebolith. No definite ureteral stones. Suboptimal evaluation for bowel pathology due to the lack of intravenous and oral contrast. However, there is no definite bowel wall thickenin g or obstruction. Normal appendix. Moderate well-formed stool seen throughout the colon. IMPRESSION: 1. The right-sided hydronephrosis has resolved. 2. Left-sided nephrolithiasis. There is also mild left hydroureteronephrosis to the level of the dist al left ureter were there is an abrupt caliber change approximately 5 cm proximal to the ureterovesic al junction. No definite ureteral stones identified. Therefore, this could represent a radiolucent st one, recently passed stone, stricture, or occult lesion. Urology consultation recommended for further evaluation. 3. The bladder is decompressed by Patton catheter. 4. Pelvic floor collapse. 5. Additional findings as described above. ACT 112: Negative or not required by law. Electronically signed by: Syed Chen M.D. 10/17/2019 11:43 AM
--- NOTE | 2019-10-17 17:41 | Urology Consultation ---
Date of Consultation October 17, 2019 Assessment & Plan (1) Hydronephrosis of right kidney: Mild left hydro with no obvious cause of obstruction. May be related to recently passed stone. Right hydro resolved. Normal Cr. Would rec observation for now. Can f/u as outpt in 2-3 weeks with repeat US to eval progression of left hydro. No need for surgical intervention at this time. History of Present Illness Attending Physician: Sherif Jacobson MD 74 y/o female with a recent left frontoparietal stroke and hip fracture presented from rehab with the sudden onset of thigh pain and poor mobility. Pain with movement. No significant urinary complaints or flank pain. Upon arrival a US was performed with showed right sided hydronephrosis. This was followed by a CT Scan of the Abd/Pel which showed resolution of the right hydo and then mild left hydro but no stone in the distal ureter. Urology consulted for further evaluation. Allergies Allergy/AdvReac Type Severity Reaction Status Date / Time celecoxib [From Celebrex] Allergy Verified 10/07/19 08:15 Home Medications Home Medications Medication Instructions Recorded Confirmed Type budesonide-formoterol HFA 160 2 puffs INH BID #10.2 gm 10/09/18 10/16/19 Rx mcg-4.5 mcg/actuation aerosol inhaler atorvastatin 40 mg tablet 40 mg PO DAILY #90 tab 06/23/19 10/16/19 Rx acetaminophen 325 mg PO QID 10/07/19 10/16/19 History albuterol sulfate 1 puffs INHALATION Q4H PRN 10/07/19 10/16/19 History aspirin 81 mg PO QAM 10/07/19 10/16/19 History escitalopram oxalate 10 mg PO DAILY 10/07/19 10/16/19 History fluticasone propionate [Flonase 2 spray INTRANASAL DAILY 10/07/19 10/16/19 History Allergy Relief] lorazepam 0.5 mg PO TID PRN 10/07/19 10/16/19 History lorazepam 1 mg PO HS PRN 10/07/19 10/16/19 History melatonin 3 mg PO HS 10/07/19 10/16/19 History oxycodone 5 mg PO ONCE 10/07/19 10/16/19 History potassium chloride 20 meq PO BID 10/07/19 10/16/19 History heparin, porcine (PF) 5,000 unit SUBCUT Q12 #1 ml 10/11/19 10/16/19 Rx losartan [Cozaar] 25 mg PO DAILY #0 tab 10/11/19 10/16/19 Rx Patient History Medical History Asthma (Chronic) Benign colonic polyp (Chronic) Closed hip fracture (Inactive) Cystocele, midline (Chronic) Disc degeneration, lumbar (Chronic) History of CVA with residual deficit Hyperlipidemia (Chronic) Hypertension (Chronic) Osteopenia (Chronic) Surgical History History of tooth extraction S/P colonoscopy Status post-operative repair of hip fracture (~09/2019) Family History Mother Diabetes Hypertension Myocardial infarction Sister Diabetes Denies family history of Ovarian cancer Prostate cancer Breast cancer Colorectal cancer Social History Preferred Language: Upper Sorbian Communication Ability: Effective Visual Impairment: Partially Limited Hearing Ability: Normal Tier And Detonator Required: No Beliefs That Will Affect Care: None marital status: Current Living Situation: Rehab Current Living Situation Comment: [facility] current occupational status: retired Other Information That Helps Us Care for You: No Feels Safe at Home: Yes Safety Concerns: Feels Safe At This Time Smoking Status: Never smoker Second Hand Exposure: Yes ; Hx Alcohol Use: Yes Alcohol type: wine Alcohol Intake Frequency: Holidays/Special Occasions Hx Substance Use: No Childhood Exposure to Second-Hand Smoke: Yes caffeine: Yes (coffee, diet soda) during the past year weight has: remained stable Dental Care, Regularly: Yes Physical Activity Frequency: Daily Seatbelt Use: always Sunscreen Use: Yes Do you think of yourself as: straight/heterosexual Review of Systems Review of Systems: All systems reviewed & are unremarkable except as noted in HPI & below Physical Exam Constitutional: WD/WN, vitals as above Respiratory: normal respiratory effort, lungs clear to auscultation Cardiovascular: RRR, no murmur, no edema Gastrointestinal (Abdomen): normal bowel sounds, soft, nontender, no hepatosplenomegaly Neurologic: patellar DTR's 2+ bilat, sensation intact Psychiatric: A+Ox3, euthymic affect Results & Data Vital Signs (Past 12 Hours) Vital Signs Temp Pulse Resp BP Pulse Ox 10/17/19 15:28 36.9 C 95 H 16 123/68 97 10/17/19 07:51 37.1 C 92 H 18 177/66 H 97
[2019-10-17] MEDS: ENOXAPARIN INJ 40 MG/0.4 ML SYR SQ SCH (20:47)
[2019-10-17] MEDS: MELATONIN 3 MG TAB PO SCH (20:48)
[2019-10-18] MEDS: OXYCODONE HCL IR 5 MG TAB (IMMEDIATE RELEASE) PO PRN ×5 (03:07→23:58)
[2019-10-18] MEDS: HYDROmorphone INJ 0.5 MG/0.5 ML SYR IV PRN ×2 (05:49→12:32)
--- NOTE | 2019-10-18 06:35 | Orthopedic Progress Note ---
Date of Service October 18, 2019 Assessment & Plan (1) Post-operative pain: Her hip pain is not improving. Based on her history and physical exam, it seems that the pain would be coming from her hip, however, the x-rays done 2 days ago showed no issues with the fracture or the hardware. She is dealing with a renal issue on her left side she also had a recent stroke which is affecting her left side. I do want to get a CT scan of her left hip. I to be sure that nothing else is going on that were missing on the x-rays. The CT scan was ordered. Present on Admission?: Yes Subjective Marcie was seen and examined at bedside this morning. Unfortunately she is still having a lot of pain in her left hip. Her symptoms are unchanged from yesterday. She has been unable to get out of bed. The pain meds do not seem to be helping. Physical Exam Musculoskeletal: On physical examination of the left hip, her left leg is still shortened and externally rotated. She is significant pain with any range of motion of her left hip. Results & Data ([facility]) Vital Signs (Past 12 Hours) Vital Signs Temp Pulse Resp BP Pulse Ox 10/17/19 23:20 36.8 C 85 18 104/65 97 PG Care Time/CCT Total # of Minutes Spent Total Time Spent with Patient: Total time spent is greater than 50% in coordination of care (as documented) at patient's floor/unit and/or counseling patient: Coding Level of Care Code 10322 Inpt Consult Level 3 Diagnoses Post-operative pain G89.18
[2019-10-18] MEDS: CYCLOBENZAPRINE HCL 10 MG TAB PO SCH ×3 (08:04→21:05)
[2019-10-18] MEDS: FLUTICASONE/VILANTEROL 200/25MCG 14 PUFFS/INHALER INH SCH (08:04)
[2019-10-18] MEDS: POTASSIUM CHLORIDE 20 MEQ TABCR PO SCH ×2 (08:04→21:05)
[2019-10-18] MEDS: FLUTICASONE PROPIONATE NA SPR 16 GM BTL NAE SCH (08:04)
[2019-10-18] MEDS: LOSARTAN POTASSIUM 25 MG TAB PO SCH (08:05)
[2019-10-18] MEDS: ESCITALOPRAM OXALATE 10 MG TAB PO SCH (08:05)
[2019-10-18] MEDS: ASPIRIN 81 MG ECTAB PO SCH (08:05)
--- NOTE | 2019-10-18 09:43 | CT Scan Report ---
CT hip LT wo con CT DOSE: HISTORY: Pain increased pain 10 days from IM nail TECHNIQUE: Multiaxial CT images of the left hip were performed and reformatted in the sagittal and co santi plane without the use of contrast. A dose lowering technique was utilized adhering to the prin ciples of MARÍA. COMPARISON: 10/17/2019 FINDINGS: There are findings of a left hip nailing procedure. Bony alignment is grossly anatomic. Fra cture of the intertrochanteric region of the left hip with avulsion of the lesser trochanter are agai n noted. No evidence for acetabular protrusion. Mild degenerative change of the left hip joint space. Mild postoperative soft tissue change. This is unremarkable given the recent hip pinning procedure. IMPRESSION: Anatomic alignment post left hip nailing procedure. Expected soft tissue postoperative changes. ACT 112: Negative or not required by law. The above report was generated using voice recognition software. It may contain grammatical, syntax or spelling errors. Electronically signed by: Dale Glass M.D. 10/18/2019 9:42 AM
--- NOTE | 2019-10-18 13:28 | Hospitalist Progress Note ---
Date of Service October 18, 2019 Assessment & Plan (1) Left thigh pain: * Appears to be muscle spasms related to her recent surgery * Mag, CK wnl * PT/OT evals -- continue while inpatient --> patient to return to [facility] at discharge * CTAP (follow up from US Liver d/t elevated liver enzymes which showed R hydro) --> R hydro resolution, L nephrolithiasis with mild hydro, abrupt change 5cm proximal to UVJ which could have been a recently passed stone vs. radiolucent stone vs stricture/lesion Urology consulted -- rec outpatient follow up in 2-3 weeks with repeat US to evaluate progression of L hydro * Orthopedics consulted--> no surgical intervention at this time. CT Hip with anatomic alignment s/p left nailing Encouraged ambulation Will discontinue IV pain medications and increase oxycodone to 1-2 tabs prn Ice to affected side WBC now elevated at 12.4k, afebrile -- patient did have bibasilar crackles on exam, resolved with deep cough --> likely component of atelectasis given patient has been fairly immobile up until today when she was agreeable to get up to side of bed and walk to bathroom and back. Encouraged incentive spirometer and deep breathing. 95% on RA. UA negative for infection. (2) Abnormal LFTs: * Mildly elevated since CVA but appeared to be worse on admission with AST/ALT 198/354 and alk phos 420 --> trending down, currently ASt 91, ALT 200, alk phos 314 * Of note, had previously been on atorvastatin 40mg daily but was recently increased to 80mg daily at [facility] following recent stroke -- holding statin currently * CK wnl * US Liver unremarkable * Iron studies show decreased transferrin and increased Ferritin but iron was normal. Ferritin might be an acute phase reactant as platelets are also high * Viral hepatitis panel pending --> Hep Bs antigen and C antibody negative * Follow LFTs (3) Status post-operative repair of hip fracture: * Surgical incision C/D/I -- had L hip fx with IM nailing 10/[address] Adam * Ortho on consult as above (4) Hypertension: * Unclear why losartan cut to 25mg on discharge last admission as never particularly hypotensive and was increased back to 75mg PO on 10/15 * BP had been 135/70 but now 102/57 --> Will cut back dose to 50mg daily -- initially BP likely elevated in setting of pain * Continue to monitor (5) Hyperlipidemia: * Hold atorvastatin while LFTs elevated (6) Asthma: * Albuterol PRN (7) History of CVA with residual deficit: * On 09/09/19 with residual left leg weakness and mild foot drop * Continue ASA * Atorvastatin on hold as above for LFTs (8) Anxiety: * Continue lexapro 10mg PO daily * Lorazepam PRN (9) Hydronephrosis of right kidney: * Picked up incidentally on US. UA normal without blood. No Hx renal stones. * Cr around baseline * Urology consult /CTAP as above (10) DVT prophylaxis: * Lovenox 40mg SQ daily * Of note --> patient was supposed to be on heparin 5000 units SQ BID x 4 weeks s/p IM nailing Dispo: likely discharge back to [facility] Friday Admission and Anticipated Discharge Date Admission Date: October 16, 2019 Supervising Physician Co-Signing Physician Notes BILLEI Supervision Note: I did not personally see or examine the patient today, but I verified all chaney points of BILLIE Odell's assessment and plan with the following exceptions/additions: None Subjective Patient states her pain is improved today, but still quite painful. She notes that 2 nights ago she developed left lower back pain/hip pain but that has since resolved and now is moreso to the left lateral thigh. She states that it is difficult to put weight on her left leg and does note that she has some residual weakness on that since from a stroke earlier this year, at which time they "tripled" her atorvastatin. Discussed possibility of a stone on imaging that has possibly passed since that time, although patient does deny any hematuria or dysuria, and actually requested carter catheter when she was admitted. She states pain medications have been acceptable to control her pain, but that she has not yet been up with therapy. She states she has some frustrations because she had been doing so well at [facility] with therapy and then noticed a worsening of her pain, although she does endorse that she had been taking extra laps around the gym when she probably should not have. She denies any fevers, chills, chest pain, shortness of breath, abdominal pain, difficulty eating/drinking, n/v/d/c at this time. Review of Systems Review of Systems: All systems reviewed & are unremarkable except as noted in HPI & below Physical Exam Constitutional: WD/WN, vitals as above no acute distress Eyes: + anicteric sclerae and PERRL ENMT: external ear and nose normal, oropharynx normal Neck: trachea midline, no thyromegaly Respiratory: normal respiratory effort, lungs clear to auscultation Auscul tation: + crackles (initially bibasilar crackles -- resolved with deep cough) Cardiovascular: RRR, no murmur, no edema Gastrointestinal (Abdomen): normal bowel sounds, soft, nontender, no hepatosplenomegaly multiple areas of ecchymosis where patient receives Heparin SQ lower abdomen Musculoskeletal: Dressings c/d/i Minimally tender L lateral thigh. 4/5 strength LLE, 5/5 strength RLE Left leg shortened and externally rotated -- pain with internal/external r otation of the hip. L foot drop Skin: warm, dry Neurologic: patellar DTR's 2+ bilat, sensation intact Psychiatric: A+Ox3, euthymic affect Lymphatic: no cervical or axillary lymphadenopathy Results & Data Results & Data ([facility]) Vital Signs (Past 12 Hours) Vital Signs Temp Pulse Resp BP Pulse Ox 10/18/19 07:40 37.1 C 89 16 135/70 98 Laboratory Results 10/18/19 10/18/19 Range/Units 16:06 16:06 WBC 12.42 H (4.8-10.8) K/uL RBC 3.12 L (4.2-5.4) M/uL Hgb 9.3 L (12.0-16.0) g/dL Hct 30.1 L (37-47) % MCV 96.5 (80-100) fL MCH 29.8 (25-34) pg MCHC 30.9 L (32-36) g/dL RDW Std Deviation 51.6 H (36.4-46.3) fL RDW Coeff of Cuco 15.1 H (11.5-14.5) % Plt Count 552 H (130-400) K/uL MPV 8.5 (7.4-10.4) fL Sodium 134 L (136-145) mmol/L Potassium 4.2 (3.5-5.1) mmol/L Chloride 101 (98-107) mmol/L Carbon Dioxide 26 (21-32) mmol/L Anion Gap 7.0 (3-11) BUN 16 D (7-18) mg/dl Creatinine 0.95 D (0.6-1.2) mg/dl Est Cr Clr Drug Dosing 49.1 ml/min Est GFR ( Amer) 69.4 Est GFR (Non-Af Amer) 59.8 BUN/Creatinine Ratio 17.1 (10-20) Glucose 111 H (70-99) mg/dl Calcium 8.8 (8.5-10.1) mg/dl Total Bilirubin 0.4 (0.2-1) mg/dl AST 91 H (15-37) U/L ALT 200 H (12-78) U/L Alkaline Phosphatase 314 H (45-117) U/L Total Protein 6.6 (6.4-8.2) gm/dl Albumin 2.4 L (3.4-5.0) gm/dl Globulin 4.2 H (2.5-4.0) gm/dl Albumin/Globulin Ratio 0.6 L (0.9-2) Diagnostic Findings CT A/P 10/16 IMPRESSION: 1. The right-sided hydronephrosis has resolved. 2. Left-sided nephrolithiasis. There is also mild left hydroureteronephrosis to the level of the distal left ureter were there is an abrupt caliber change approximately 5 cm proximal to the ureterovesical junction. No definite ureteral stones identified. Therefore, this could represent a radiolucent stone, recently passed stone, stricture, or occult lesion. Urology consultation recommended for further evaluation. 3. The bladder is decompressed by Carter catheter. 4. Pelvic floor collapse. 5. Additional findings as described above. CT LEFT HIP w/o contrast IMPRESSION: Anatomic alignment post left hip nailing procedure. Expected soft tissue postoperative changes. PG Care Time/CCT Total # of Minutes Spent Total Time Spent with Patient: Total time spent is greater than 50% in coordination of care (as documented) at patient's floor/unit and/or counseling patient: Coding Level of Care Code 82451 Subseq Hosp Care Lvl 3 Diagnoses Left thigh pain M79.652 Abnormal LFTs R94.5 Status post-operative repair of hip fracture Z98.890; Z87.81 Hypertension I10 Hypertension type: essential hypertension Hyperlipidemia E78.5 Asthma J45.909 History of CVA with residual deficit I69.30 Anxiety F41.9 Hydronephrosis of right kidney N13.30 DVT prophylaxis Z29.9 (1) Hypertension Hypertension type: essential hypertension Qualified Code(s): I10 - Essential (primary) hypertension
[2019-10-18] MEDS ORDERED: OXYCODONE HCL IR 5 MG TAB (IMMEDIATE RELEASE) PO PRN (16:00)
[2019-10-18 16:17] LABS: Hematocrit (blood only) 30.1 % (37-47); Hemoglobin 9.3 g/dL (12.0-16.0); Mean Corpuscular Hemoglobin 29.8 pg (25-34); Mean Corpuscular Hgb Conc 30.9 g/dL (32-36); Mean Corpuscular Volume 96.5 fL (80-100); Mean Platelet Volume 8.5 fL (7.4-10.4); Platelet Count 552 K/uL (130-400); RDW Coefficient of Variation 15.1 % (11.5-14.5); RDW Standard Deviation 51.6 fL (36.4-46.3); Red Blood Count 3.12 M/uL (4.2-5.4); White Blood Count 12.42 K/uL (4.8-10.8)
[2019-10-18 16:44] LABS: Albumin Globulin Ratio 0.6 (0.9-2); Albumin Level 2.4 gm/dl (3.4-5.0); BUN Creatinine Ratio 17.1 (10-20); Bilirubin,Total 0.4 mg/dl (0.2-1); Calcium 8.8 mg/dl (8.5-10.1); Creatinine Clr Calc Pharmacy 49.1 ml/min; Est GFR (African American) 69.4; Est GFR (Non-African American) 59.8; Globulin 4.2 gm/dl (2.5-4.0); Potassium 4.2 mmol/L (3.5-5.1); Total Protein 6.6 gm/dl (6.4-8.2)
[2019-10-18] MEDS: ENOXAPARIN INJ 40 MG/0.4 ML SYR SQ SCH (21:05)
[2019-10-18] MEDS: MELATONIN 3 MG TAB PO SCH (21:05)
[2019-10-18] MEDS: LORazepam 1 MG TAB PO PRN (23:58)
[2019-10-19 06:05] LABS: Basophils # (auto) 0.02 K/uL (0-0.2); Basophils % (auto) 0.2 %; Eosinophils # (auto) 0.12 K/uL (0-0.5); Hematocrit (blood only) 28.1 % (37-47); Hemoglobin 9.2 g/dL (12.0-16.0); Immature Granulocytes # (auto) 0.14 K/uL (0.00-0.02); Immature Granulocytes % (auto) 1.2 %; Lymphocytes % (auto) 18.2 %; Mean Corpuscular Hemoglobin 30.6 pg (25-34); Mean Corpuscular Hgb Conc 32.7 g/dL (32-36); Mean Corpuscular Volume 93.4 fL (80-100); Mean Platelet Volume 8.7 fL (7.4-10.4); Monocytes # (auto) 1.01 K/uL (0.11-0.59); Monocytes % (auto) 8.8 %; Neutrophils # (auto) 8.12 K/uL (1.4-6.5); Neutrophils % (auto) 70.6 %; Platelet Count 530 K/uL (130-400); RDW Coefficient of Variation 14.9 % (11.5-14.5); RDW Standard Deviation 49.5 fL (36.4-46.3); Red Blood Count 3.01 M/uL (4.2-5.4); White Blood Count 11.51 K/uL (4.8-10.8)
[2019-10-19 07:10] LABS: Albumin Globulin Ratio 0.6 (0.9-2); Albumin Level 2.4 gm/dl (3.4-5.0); BUN Creatinine Ratio 23.9 (10-20); Bilirubin,Total 0.5 mg/dl (0.2-1); Calcium 8.8 mg/dl (8.5-10.1); Creatinine Clr Calc Pharmacy 84.9 ml/min; Est GFR (African American) 108.6; Est GFR (Non-African American) 93.7; Globulin 4.3 gm/dl (2.5-4.0); Potassium 4.1 mmol/L (3.5-5.1); Total Protein 6.7 gm/dl (6.4-8.2)
[2019-10-19] MEDS: OXYCODONE HCL IR 5 MG TAB (IMMEDIATE RELEASE) PO PRN ×4 (08:12→23:38)
[2019-10-19] MEDS: ASPIRIN 81 MG ECTAB PO SCH (09:10)
[2019-10-19] MEDS: FLUTICASONE/VILANTEROL 200/25MCG 14 PUFFS/INHALER INH SCH (09:10)
[2019-10-19] MEDS: LOSARTAN POTASSIUM 50 MG TAB PO SCH (09:10)
[2019-10-19] MEDS: FLUTICASONE PROPIONATE NA SPR 16 GM BTL NAE SCH (09:10)
[2019-10-19] MEDS: CYCLOBENZAPRINE HCL 10 MG TAB PO SCH ×3 (09:11→20:49)
[2019-10-19] MEDS: ESCITALOPRAM OXALATE 10 MG TAB PO SCH (09:11)
[2019-10-19] MEDS: POTASSIUM CHLORIDE 20 MEQ TABCR PO SCH ×2 (09:11→20:49)
--- NOTE | 2019-10-19 11:06 | XRay Report ---
LEFT FOOT 2 VIEWS CLINICAL HISTORY: Left foot pain. FINDINGS: Crosstable AP and lateral views of the left foot are obtained. No prior studies are availab le for comparison at the time of dictation. The examination is degraded by inability to properly posi tion the patient. The skeletal structures are osteopenic. No fracture is seen. There is a dorsal calc aneal enthesophyte. A high arch is incidentally noted. The joint spaces appear maintained. The overly ing soft tissues are normal as imaged. IMPRESSION: No acute bony abnormality is identified. Electronically signed by: Girma Wylie M.D. 10/19/2019 11:04 AM
[2019-10-19] MEDS ORDERED: predniSONE 20 MG TAB PO STA (11:10)
[2019-10-19 12:15] LABS: Lyme Ab IgG w/WB Rflx Negative (Negative); Lyme Ab IgM w/WB Rflx Negative (Negative)
--- NOTE | 2019-10-19 14:13 | Hospitalist Progress Note ---
Date of Service October 19, 2019 Assessment & Plan (1) Left thigh pain: * Appears to be muscle spasms related to her recent surgery * Mag, CK wnl, aldolase pending * PT/OT evals -- continue while inpatient --> patient to return to [facility] at discharge * CTAP (follow up from US Liver d/t elevated liver enzymes which showed R hydro) --> R hydro resolution, L nephrolithiasis with mild hydro, abrupt change 5cm proximal to UVJ which could have been a recently passed stone vs. radiolucent stone vs stricture/lesion Urology consulted -- rec outpatient follow up in 2-3 weeks with repeat US to evaluate progression of L hydro * Orthopedics consulted--> no surgical intervention at this time. CT Hip with anatomic alignment s/p left nailing Encouraged ambulation Will discontinue IV pain medications and increase oxycodone to 1-2 tabs prn Ice to affected side WBC elevated to 12.4k on 10/17 which did decrease with use of incentive spirometer. 95% on RA. However, patient now with weakness and erythema to medial aspect LEFT ankle Imaging negative for any acute fracture Uric acid 3.5 Lyme negative Did obtain ESR and CRP, which were both elevated at 61 and 13.7 -- concerning for bacteremia also given other elevated acute phase reactants --> ferritin and platelets both elevated as well as LFTs Has not had any fevers while inpatient, but currently 37.4C Blood cultures obtained --> follow Started on Vanc/Cefepime empirically Limited ECHO to assess valvular vegetation Of note, did receive x 1 dose prednisone 20mg PO for inflammation prior to results of ESR/CRP and blood cultures UA with E.coli previous admission -- repeat negative for any infection (2) Abnormal LFTs: * Mildly elevated since CVA but appeared to be worse on admission with AST/ALT 198/354 and alk phos 420 --> trending down, currently AST 78, ALT 177, Alk phos 315 * Of note, had previously been on atorvastatin 40mg daily but was recently increased to 80mg daily at [facility] following recent stroke -- holding statin currently * CK wnl * US Liver unremarkable * Iron studies show decreased transferrin and increased Ferritin but iron was normal. Ferritin might be an acute phase reactant as platelets are also high . See above * Viral hepatitis panel pending --> Hep Bs antigen and C antibody negative * Follow LFTs (3) Status post-operative repair of hip fracture: * Surgical incision C/D/I -- had L hip fx with IM nailing 10/[address] Adam * Ortho on consult as above (4) Hypertension: * Unclear why losartan cut to 25mg on discharge last admission as never particularly hypotensive and was increased back to 75mg PO on 10/15 * BP had dropped to 102/57 on 10/17 --> cut back losartan to 50mg daily * BP stable 130/70 * Continue to monitor (5) Hyperlipidemia: * Holding atorvastatin while LFTs elevated (6) Asthma: * Albuterol PRN (7) History of CVA with residual deficit: * On 09/09/19 with residual left leg weakness and mild foot drop * Continue ASA * Atorvastatin on hold as above for LFTs (8) Anxiety: * Continue lexapro 10mg PO daily * Lorazepam PRN (9) Hydronephrosis of right kidney: * Picked up incidentally on US. UA normal without blood. No Hx renal stones. * Cr around baseline * Urology consult /CTAP as above-may have been a recently passed stone * Right hydronephrosis resolved on recent CT abdomen/pelvis, however still remains with mild left-sided hydronephrosis-urology recommends repeat ultrasound of the kidney to reassess in 2 to 3 weeks (10) DVT prophylaxis: * Lovenox 40mg SQ daily * Of note --> patient was supposed to be on heparin 5000 units SQ BID x 4 weeks s/p IM nailing Dispo: likely to remain inpatient 1-2 days --> follow blood cultures, ECHO as above Admission and Anticipated Discharge Date Admission Date: October 18, 2019 Supervising Physician Co-Signing Physician Notes BILLIE Supervision Note: I did not personally see or examine the patient today, but I verified all chaney points of BILLIE Odell's assessment and plan with the following exceptions/additions: None Subjective Patient evaluated this morning. States she is in the same amount of pain, but now pain located in left foot, worsened by any movement. She endorses lower extremity weakness, worse than baseline with recent stroke to that same side. Patient states she was up to the bathroom this morning and felt scared that she would fall and felt like she was not steady on her feet. Denies falling currently, but does voice great concern for fear of this happening again given recent history of IM nailing to L hip earlier this summer. She endorses pain to left hip and thigh but primarily now in her foot. When discussing obtaining imaging of her foot, she stated that it will "probably be negative like everything else" but she was agreeable to scan. She states she was told by orthopedics that she should rest in bed and take pain medication and not have to participate in therapy, but we did discuss that she should be up and moving as much as possible to regain her strength. Denies fevers, chills, chest pain, shortness of breath, abdominal pain, dysuria at this time. Review of Systems Review of Systems: All systems reviewed & are unremarkable except as noted in HPI & below Physical Exam Constitutional: WD/WN, vitals as above no acute distress Eyes: + anicteric sclerae and PERRL ENMT: external ear and nose normal, oropharynx normal Neck: trachea midline, no thyromegaly Respiratory: normal respiratory effort, lungs clear to auscultation Auscultation: + crackles (initially bibasilar crackles -- resolved with deep cough) Cardiovascular: RRR, no murmur, no edema Gastrointestinal (Abdomen): normal bowel sounds, soft, nontender, no hepatosplenomegaly multiple areas of ecchymosis where patient receives injections Musculoskeletal: Dressings c/d/i Minimally tender L lateral thigh. 4/5 strength LLE, 5/5 strength RLE Left leg shortened and externally rotated -- pain with internal/external rotation of the hip. L foot drop Area of erythema to medial aspect left ankle. Tender to palpation. Pain elicited with any movement Neurologic: patellar DTR's 2+ bilat, sensation intact Psychiatric: Orientation: alert and oriented x 3 Affect: + anxious affect Lymphatic: no cervical or axillary lymphadenopathy Results & Data Results & Data ([facility]) Vital Signs (Past 12 Hours) Vital Signs Temp Pulse Resp BP Pulse Ox 10/19/19 07:24 37.4 C 97 H 18 130/71 95 Laboratory Results 10/19/19 10/19/19 10/19/19 Range/Units 11:16 11:16 11:16 WBC (4.8-10.8) K/uL RBC (4.2-5.4) M/uL Hgb (12.0-16.0) g/dL Hct (37-47) % MCV (80-100) fL MCH (25-34) pg MCHC (32-36) g/dL RDW Std Deviation (36.4-46.3) fL RDW Coeff of Cuco (11.5-14.5) % Plt Count (130-400) K/uL MPV (7.4-10.4) fL Immature Gran % (Auto) % Neut % (Auto) % Lymph % (Auto) % [place] % (Auto) % Eos % (Auto) % Baso % (Auto) % Neut # (Auto) (1.4-6.5) K/uL Lymph # (Auto) (1.2-3.4) K/uL [place] # (Auto) (0.11-0.59) K/uL Eos # (Auto) (0-0.5) K/uL Baso # (Auto) (0-0.2) K/uL Immature Gran # (Auto) (0.00-0.02) K/uL ESR (0-21) mm/hr Sodium (136-145) mmol/L Potassium (3.5-5.1) mmol/L Chloride (98-107) mmol/L Carbon Dioxide (21-32) mmol/L Anion Gap (3-11) BUN (7-18) mg/dl Creatinine (0.6-1.2) mg/dl Est Cr Clr Drug Dosing ml/min Est GFR ( Amer) Est GFR (Non-Af Amer) BUN/Creatinine Ratio (10-20) Glucose (70-99) mg/dl Uric Acid 3.5 (2.6-7.2) mg/dl Calcium (8.5-10.1) mg/dl Total Bilirubin (0.2-1) mg/dl AST (15-37) U/L ALT (12-78) U/L Alkaline Phosphatase (45-117) U/L C-Reactive Protein 13.70 H (0-0.29) mg/dl Total Protein (6.4-8.2) gm/dl Albumin (3.4-5.0) gm/dl Globulin (2.5-4.0) gm/dl Albumin/Globulin Ratio (0.9-2) Lyme Disease IgG Ab Negative (Negative) Lyme Disease IgM Ab Negative (Negative) 06/10/19/19 10/19/19 Range/Units 05:34 05:34 05:34 WBC 11.51 H (4.8-10.8) K/uL RBC 3.01 L (4.2-5.4) M/uL Hgb 9.2 L (12.0-16.0) g/dL Hct 28.1 L (37-47) % MCV 93.4 (80-100) fL MCH 30.6 (25-34) pg MCHC 32.7 (32-36) g/dL RDW Std Deviation 49.5 H (36.4-46.3) fL RDW Coeff of Cuco 14.9 H (11.5-14.5) % Plt Count 530 H (130-400) K/uL MPV 8.7 (7.4-10.4) fL Immature Gran % (Auto) 1.2 % Neut % (Auto) 70.6 % Lymph % (Auto) 18.2 % [place] % (Auto) 8.8 % Eos % (Auto) 1.0 % Baso % (Auto) 0.2 % Neut # (Auto) 8.12 H (1.4-6.5) K/uL Lymph # (Auto) 2.10 (1.2-3.4) K/uL [place] # (Auto) 1.01 H (0.11-0.59) K/uL Eos # (Auto) 0.12 (0-0.5) K/uL Baso # (Auto) 0.02 (0-0.2) K/uL Immature Gran # (Auto) 0.14 H (0.00-0.02) K/uL ESR 61 H (0-21) mm/hr Sodium 134 L (136-145) mmol/L Potassium 4.1 (3.5-5.1) mmol/L Chloride 102 (98-107) mmol/L Carbon Dioxide 27 (21-32) mmol/L Anion Gap 5.0 (3-11) BUN 13 (7-18) mg/dl Creatinine 0.55 L D (0.6-1.2) mg/dl Est Cr Clr Drug Dosing 84.9 ml/min Est GFR ( Amer) 108.6 Est GFR (Non-Af Amer) 93.7 BUN/Creatinine Ratio 23.9 H (10-20) Glucose 119 H (70-99) mg/dl Uric Acid (2.6-7.2) mg/dl Calcium 8.8 (8.5-10.1) mg/dl Total Bilirubin 0.5 (0.2-1) mg/dl AST 78 H (15-37) U/L ALT 177 H (12-78) U/L Alkaline Phosphatase 315 H (45-117) U/L C-Reactive Protein (0-0.29) mg/dl Total Protein 6.7 (6.4-8.2) gm/dl Albumin 2.4 L (3.4-5.0) gm/dl Globulin 4.3 H (2.5-4.0) gm/dl Albumin/Globulin Ratio 0.6 L (0.9-2) Lyme Disease IgG Ab (Negative) Lyme Disease IgM Ab (Negative) 10/18/19 10/18/19 Range/Units 16:06 16:06 WBC 12.42 H (4.8-10.8) K/uL RBC 3.12 L (4.2-5.4) M/uL Hgb 9.3 L (12.0-16.0) g/dL Hct 30.1 L (37-47) % MCV 96.5 (80-100) fL MCH 29.8 (25-34) pg MCHC 30.9 L (32-36) g/dL RDW Std Deviation 51.6 H (36.4-46.3) fL RDW Coeff of Cuco 15.1 H (11.5-14.5) % Plt Count 552 H (130-400) K/uL MPV 8.5 (7.4-10.4) fL Immature Gran % (Auto) % Neut % (Auto) % Lymph % (Auto) % [place] % (Auto) % Eos % (Auto) % Baso % (Auto) % Neut # (Auto) (1.4-6.5) K/uL Lymph # (Auto) (1.2-3.4) K/uL [place] # (Auto) (0.11-0.59) K/uL Eos # (Auto) (0-0.5) K/uL Baso # (Auto) (0-0.2) K/uL Immature Gran # (Auto) (0.00-0.02) K/uL ESR (0-21) mm/hr Sodium 134 L (136-145) mmol/L Potassium 4.2 (3.5-5.1) mmol/L Chloride 101 (98-107) mmol/L Carbon Dioxide 26 (21-32) mmol/L Anion Gap 7.0 (3-11) BUN 16 D (7-18) mg/dl Creatinine 0.95 D (0.6-1.2) mg/dl Est Cr Clr Drug Dosing 49.1 ml/min Est GFR ( Amer) 69.4 Est GFR (Non-Af Amer) 59.8 BUN/Creatinine Ratio 17.1 (10-20) Glucose 111 H (70-99) mg/dl Uric Acid (2.6-7.2) mg/dl Calcium 8.8 (8.5-10.1) mg/dl Total Bilirubin 0.4 (0.2-1) mg/dl AST 91 H (15-37) U/L ALT 200 H (12-78) U/L Alkaline Phosphatase 314 H (45-117) U/L C-Reactive Protein (0-0.29) mg/dl Total Protein 6.6 (6.4-8.2) gm/dl Albumin 2.4 L (3.4-5.0) gm/dl Globulin 4.2 H (2.5-4.0) gm/dl Albumin/Globulin Ratio 0.6 L (0.9-2) Lyme Disease IgG Ab (Negative) Lyme Disease IgM Ab (Negative) PG Care Time/CCT Total # of Minutes Spent Total Time Spent with Patient: Total time spent is greater than 50% in coordination of care (as documented) at patient's floor/unit and/or counseling patient: Coding Level of Care Code 75376 Subseq Hosp Care Lvl 3 Diagnoses Left thigh pain M79.652 Abnormal LFTs R94.5 Status post-operative repair of hip fracture Z98.890; Z87.81 Hypertension I10 Hypertension type: essential hypertension Hyperlipidemia E78.5 Asthma J45.909 History of CVA with residual deficit I69.30 Anxiety F41.9 Hydronephrosis of right kidney N13.30 DVT prophylaxis Z29.9 (1) Hypertension Hypertension type: essential hypertension Qualified Code(s): I10 - Essential (primary) hypertension
[2019-10-19] MEDS ORDERED: VANCOMYCIN CONSULT ACTIVE PRN (14:24)
--- NOTE | 2019-10-19 15:03 | Orthopedic Progress Note ---
Date of Service October 19, 2019 Assessment & Plan (1) Post-operative pain: She still having a lot of pain in her left hip. The CT scan of her left hip show the hardware to be in anatomic alignment and the hip to be well reduced. There are no signs of complications on the CT scan. From an or thopedic standpoint, she can be up and weightbearing as tolerated as pain allows. I want to leave the neetu in for another couple of days, however, I will will try to get them removed before she heads [facility] to [facility]. She is orthopedically stable for discharge when medically ready. Present on Admission?: Yes Subjective Marcie was seen and examined at bedside. Unfortunately she is still having a lot of pain in her left hip. She still having a lot of trouble placing any weight on her left leg. She had a CAT scan of her left hip done yesterday which was essentially negative for any new pathology or signs of complication. She has been getting the pain medications. She has no new complaints. Physical Exam Musculoskeletal: On physical examination of the left hip, her left leg still little bit shortened and externally rotated. She is a lot of pain with logroll of her left leg. The incisions are clean and dry. Results & Data ([facility]) Vital Signs (Past 12 Hours) Vital Signs Temp Pulse Resp BP Pulse Ox 10/19/19 07:24 37.4 C 97 H 18 130/71 95 PG Care Time/CCT Total # of Minutes Spent Total Time Spent with Patient: Total time spent is greater than 50% in coordination of care (as documented) at patient's floor/unit and/or counseling patient: Coding Level of Care Code None Diagnoses Post-operative pain G89.18
[2019-10-19 15:28] LABS: Hepatitis A Antibody IgM NON-REACTIVE (NON-REACTIVE); Hepatitis B Core Antibody IgM NON-REACTIVE (NON-REACTIVE)
[2019-10-19] MEDS ORDERED: VANCOMYCIN HCL 1,500 MG in SODIUM CHLORIDE 0.9% 500 ML IV ONE (15:30)
--- NOTE | 2019-10-19 15:34 | Pharmacy Report ---
Pharmacy Abx Dose Short Note - Date of Service October 19, 2019 - Assessment & Plan Assessment 74 year old F receiving vancomycin and Rocephin for treatment of empiric indication Day # 1 of antimicrobial therapy. Plan Vancomycin * Patient meets criteria for vancomycin AUC dosing nomogram * AUC/KELLY is the preferred PK/PD target for vancomycin * Target AUC/KELLY = 400-600 * AUC guided dosing is effective and associated with decreased risk of nephrotoxicity Pharmacy will continue to follow and will adjust dose/frequency as necessary. Thank you.
[2019-10-19] MEDS: cefTRIAXone SODIUM 2,000 MG in DEXTROSE 5% 50 ML IV SCH (15:41)
--- NOTE | 2019-10-19 17:23 | XCELERA ---
[id number]
[2019-10-19] MEDS: LORazepam 0.5 MG TAB PO PRN (18:32)
--- NOTE | 2019-10-19 18:40 | XRay Report ---
LUMBAR SPINE 3 VIEWS HISTORY: L leg radiculopathy COMPARISON: None. FINDINGS: There is no fracture. No subluxation. The sacrum is intact. Internal fixation of an old le ft hip fracture. Moderate disc space narrowing at L4-L5. Vascular calcifications are noted. Moderate facet degenerative changes within the lower lumbar spine. IMPRESSION: No fracture or subluxation within the lumbar spine. Moderate degenerative disease at L4-L5. ACT 112: Negative or not required by law. Electronically signed by: Syed Chen M.D. 10/19/2019 6:38 PM
--- NOTE | 2019-10-19 19:22 | Magnetic Resonance Report ---
LUMBAR SPINE MRI HISTORY: L leg radiculopathy TECHNIQUE: Multiplanar multisequence MRI of the lumbar spine was performed without the use of contras t. COMPARISON: Lumbar spine 10/19/2019. FINDINGS: For the purpose of the report the L5-S1 disc space will be located on axial image of . No fracture or subluxation. The conus terminates at the L1-L2 disc space level. Moderate disc space n arrowing at L4-L5. Mild disc space narrowing at L1-L2 and within the lower thoracic spine. Mild-to-mo derate facet degenerative changes throughout the lumbar spine. Mild paraspinal edema within the lumba r region. This is likely secondary to the adjacent facet degenerative changes. Mild left hydronephros is, unchanged. T12-L1: Small focal central disc protrusion without significant central canal or neural foraminal sushant rowing. L1-L2: Small broad-based posterior disc bulge resulting in mild central canal narrowing. No significa nt neural foraminal narrowing. L2-L3: Small broad-based posterior disc bulge with ligamentum and facet hypertrophy resulting in mild central canal and mild bilateral neural foraminal narrowing. L3-L4: Broad-based posterior disc bulge asymmetric to the left with ligamentum and facet hypertrophy resulting in mild central canal and mild left neural foraminal narrowing. There is moderate right ruben ral foraminal narrowing. L4-L5: Broad-based posterior disc bulge with ligamentum and facet hypertrophy resulting in moderate c entral canal and mild to moderate bilateral neural foraminal narrowing. L5-S1: Tiny broad-based posterior disc bulge without significant central canal narrowing. There is mi ld bilateral neural foraminal narrowing. IMPRESSION: 1. No fracture or subluxation within the lumbar spine. 2. Multilevel lumbar spondylosis as described above most pronounced at the L4-L5 level where there is moderate central canal narrowing. 3. Mild edema within the paraspinal muscles is likely due to the adjacent chronic degenerative change s within the facets. 4. Left-sided hydronephrosis is again noted. ACT 112: Negative or not required by law. Electronically signed by: Syed Chen M.D. 10/19/2019 7:20 PM
[2019-10-19] MEDS: MELATONIN 3 MG TAB PO SCH (20:26)
[2019-10-19] MEDS: ENOXAPARIN INJ 40 MG/0.4 ML SYR SQ SCH (20:49)
[2019-10-19] MEDS: LORazepam 1 MG TAB PO PRN (23:38)
[2019-10-20] MEDS: VANCOMYCIN HCL 1,250 MG in SODIUM CHLORIDE 0.9% 250 ML IV SCH ×2 (03:06→16:14)
[2019-10-20 06:11] LABS: Basophils # (auto) 0.03 K/uL (0-0.2); Basophils % (auto) 0.2 %; Eosinophils # (auto) 0.03 K/uL (0-0.5); Eosinophils % (auto) 0.2 %; Hematocrit (blood only) 25.4 % (37-47); Hemoglobin 8.1 g/dL (12.0-16.0); Immature Granulocytes # (auto) 0.16 K/uL (0.00-0.02); Immature Granulocytes % (auto) 1.2 %; Lymphocytes # (auto) 1.93 K/uL (1.2-3.4); Mean Corpuscular Hemoglobin 30.2 pg (25-34); Mean Corpuscular Hgb Conc 31.9 g/dL (32-36); Mean Corpuscular Volume 94.8 fL (80-100); Mean Platelet Volume 8.9 fL (7.4-10.4); Monocytes # (auto) 1.05 K/uL (0.11-0.59); Monocytes % (auto) 7.6 %; Neutrophils # (auto) 10.59 K/uL (1.4-6.5); Neutrophils % (auto) 76.8 %; Platelet Count 587 K/uL (130-400); RDW Coefficient of Variation 14.9 % (11.5-14.5); RDW Standard Deviation 51.1 fL (36.4-46.3); Red Blood Count 2.68 M/uL (4.2-5.4); White Blood Count 13.79 K/uL (4.8-10.8)
[2019-10-20 06:39] LABS: Albumin Level 2.3 gm/dl (3.4-5.0); BUN Creatinine Ratio 21.4 (10-20); Calcium 9.2 mg/dl (8.5-10.1); Creatinine Clr Calc Pharmacy 77.8 ml/min; Est GFR (African American) 105.5; Est GFR (Non-African American) 91.1
[2019-10-20 06:42] LABS: Albumin Globulin Ratio 0.6 (0.9-2); Bilirubin,Total 0.5 mg/dl (0.2-1); Globulin 4.2 gm/dl (2.5-4.0); Total Protein 6.5 gm/dl (6.4-8.2)
--- NOTE | 2019-10-20 06:44 | Orthopedic Progress Note ---
Date of Service October 20, 2019 Assessment & Plan (1) Post-operative pain: I think a lot of her pain may be coming from her back. Her MRI does show moderate stenosis at L4-5, worse on the left. She is having weakness of her left leg and significant weakness with extension of her left great toe. She does have a history of a recent stroke with weakness on that left side as well, however, she is unsure if it is the same weakness that she is dealing with now. She is still unable to bear weight on that left hip. There are no signs of infections. The incisions look good and the CT scan showed the hardware in good alignment without any evidence of abscess or fluid collection. I am able to range of motion her hip while she is lying in bed without much difficulty or much pain. I think her leg pain at this point could be coming from her back. I am going to consult pain management to see what their recommendations are for treatment. Present on Admission?: Yes Subjective Marcie was seen and examined at bedside this morning. I sent her for x-rays of her lumbar spine as well as an MRI for last evening. She still having a lot of pain in her left leg. It is not as bad while she is lying down, however, when she stands up and starts walking she is still unable to bear weight on her left leg. She is noticing more weakness in her left ankle as well. She is also complaining more of back pain. I spoke with her last evening. Overall her pains a little bit better today but she still unable to walk on it. Physical Exam Musculoskeletal: On physical examination of the left hip, the incisions are clean and dry. There is no signs of infection. She has no pain around the incision sites. I am able to do range of motion of her left hip with some log rolling without any pain. She has active dorsiflexion plantarflexion of her left ankle but dorsiflexion is a little weak. She is very weak with extension of her left great toe. Results & Data ([facility]) Vital Signs (Past 12 Hours) Vital Signs Temp Pulse Resp BP Pulse Ox 10/20/19 00:08 36.6 C 85 15 105/62 98 Diagnostic Findings X-rays of the lumbar spine visualized by myself show mild degenerative disc dise ase at L4-5. There is a well-maintained lumbar lordosis. MRI of the lumbar spine reviewed by myself does show moderate central and foraminal stenosis at L4-5. Appears to be a little bit worse on the left. I also see a slight paracentral disc herniation at L3-4 on the left. PG Care Time/CCT Total # of Minutes Spent Total Time Spent with Patient: Total time spent is greater than 50% in coordination of care (as documented) at patient's floor/unit and/or counseling patient: Coding Level of Care Code 53992 Subseq Hosp Care Lvl 3 Diagnoses Post-operative pain G89.18
[2019-10-20] MEDS: LOSARTAN POTASSIUM 50 MG TAB PO SCH (08:19)
[2019-10-20] MEDS: FLUTICASONE/VILANTEROL 200/25MCG 14 PUFFS/INHALER INH SCH (08:19)
[2019-10-20] MEDS: ASPIRIN 81 MG ECTAB PO SCH (08:19)
[2019-10-20] MEDS: POTASSIUM CHLORIDE 20 MEQ TABCR PO SCH ×2 (08:19→21:40)
[2019-10-20] MEDS: ESCITALOPRAM OXALATE 10 MG TAB PO SCH (08:20)
[2019-10-20] MEDS: FLUTICASONE PROPIONATE NA SPR 16 GM BTL NAE SCH (08:20)
[2019-10-20] MEDS: CYCLOBENZAPRINE HCL 10 MG TAB PO SCH ×2 (08:20→13:58)
[2019-10-20] MEDS: OXYCODONE HCL IR 5 MG TAB (IMMEDIATE RELEASE) PO PRN ×3 (08:29→21:45)
--- NOTE | 2019-10-20 09:14 | Pain Management Consultation ---
Date of Consultation October 20, 2019 Assessment & Plan (1) Post-operative pain: (2) Status post-operative repair of hip fracture: (3) Left thigh pain: 1. Continue Oxycodone 5-10mg every 4 hours PRN pain. 2. Continue Flexeril 10mg TID 3. She will be initiated on Gabapentin 100mg TID to further diminish pain. 4. Continue PT/OT 5. Patient's symptoms do not seem related to lumbar stenosis as the pain is specifically with weight bearing rather than with standing or walking. 6. Will follow up on the patient tomorrow. History of Present Illness Attending Physician: Whit Oglesby MD History of Present Illness Mrs. Martins is a 74 year old female that has been seen in consultation for left leg pain. She did have a stroke on 09/09/2019 and on 10/07/2019 she sustained a left femoral fracture that required an intramedullary nail fixation by Dr. Adam on 10/08/2019. She was sent to [facility] for rehab. She was slightly improving at rehab and slowly ambulating with a walker. There was still pain with left hip flexion since surgery but on 10/16/2019 the pain in the left leg worsened. When she weight bears, she develops a sharp stabbing and shooting pain down from the left hip radiating into the left foot in a nondermatomal pattern. When she sits or lays supine, the pain resolves. Patient has been taking Flexeril 10mg TID and Oxycodone 5mg x 4 hours PRN with mild relief. The left leg is slightly weak since she sustained stroke 6 weeks ago. No lumbar pain, saddle anesthesia, foot drop, bowel/bladder incontinence. Case discussed with Dr. Catalina Alvarado Pain Assessment Full Body Front + Back: 1. Allergies Allergy/AdvReac Type Severity Reaction Status Date / Time celecoxib [From Celebrex] Allergy Verified 10/07/19 08:15 Home Medications Home Medications Medication Instructions Recorded Confirmed Type budesonide-formoterol HFA 160 2 puffs INH BID #10.2 gm 10/09/18 10/16/19 Rx mcg-4.5 mcg/actuation aerosol inhaler atorvastatin 40 mg tablet 40 mg PO DAILY #90 tab 06/23/19 10/16/19 Rx acetaminophen 325 mg PO QID 10/07/19 10/16/19 History albuterol sulfate 1 puffs INHALATION Q4H PRN 10/07/19 10/16/19 History aspirin 81 mg PO QAM 10/07/19 10/16/19 History escitalopram oxalate 10 mg PO DAILY 10/07/19 10/16/19 History fluticasone propionate [Flonase 2 spray INTRANASAL DAILY 10/07/19 10/16/19 Hi story Allergy Relief] lorazepam 0.5 mg PO TID PRN 10/07/19 10/16/19 History lorazepam 1 mg PO HS PRN 10/07/19 10/16/19 History melatonin 3 mg PO HS 10/07/19 10/16/19 History oxycodone 5 mg PO ONCE 10/07/19 10/16/19 History potassium chloride 20 meq PO BID 10/07/19 10/16/19 History heparin, porcine (PF) 5,000 unit SUBCUT Q12 #1 ml 10/11/19 10/16/19 Rx losartan [Cozaar] 25 mg PO DAILY #0 tab 10/11/19 10/16/19 Rx Patient History Medical History Asthma (Chronic) Benign colonic polyp (Chronic) Closed hip fracture (Inactive) Cystocele, midline (Chronic) Disc degeneration, lumbar (Chronic) History of CVA with residual deficit Hyperlipidemia (Chronic) Hypertension (Chronic) Osteopenia (Chronic) Surgical History History of tooth extraction S/P colonoscopy Status post-operative repair of hip fracture (~09/2019) Family History Mother Diabetes Hypertension Myocardial infarction Sister Diabetes Denies family history of Ovarian cancer Prostate cancer Breast cancer Colorectal cancer Social History Preferred Language: Mongolian Communication Ability: Effective Visual Impairment: Partially Limited Hearing Ability: Normal Casting Carrier Required: No Beliefs That Will Affect Care: None marital status: Current Living Situation: Rehab Current Living Situation Comment: [facility] current occupational status: retired Other Information That Helps Us Care for You: No Feels Safe at Home: Yes Safety Concerns: Feels Safe At This Time Smoking Status: Never smoker Second Hand Exposure: Yes ; Hx Alcohol Use: Yes Alcohol type: wine Alcohol Intake Frequency: Holidays/Special Occasions Hx Substance Use: No Childhood Exposure to Second-Hand Smoke: Yes caffeine: Yes (coffee, diet soda) during the past year weight has: remained stable Dental Care, Regularly: Yes Physical Activity Frequency: Daily Seatbelt Use: always Sunscreen Use: Yes Do you think of yourself as: straight/heterosexual Physical Exam Physical Exam: GENERAL: This is a 74 year old female that does not appear in acute distress. Laying supine, appearing comfortable in the hospital bed. HEAD/FACE: Normocephalic and atraumatic. EYES: No drainage or conjunctival injection. ENT: Nose without bleeding or discharge. Oral mucosa moist. CHEST/AXILLA: Chest movement symmetrical. No deformities noted. ABDOMEN/GI: No distension BACK: Normal lumbar lordosis. No midline, SI joint, or facet joint tenderness. No myofascial spasm or trigger points noted. SKIN: [place], warm and dry. No rash noted. MS/EXTREMITY: No swelling, no deformities. Left hip incision appears well healed with neetu in place. There is 4/5 strength of the left lower leg. Limited strength with left hip flexion due to pain. No increase in pain with left hip internal or external rotation. No tenderness of the left hip to palpation. NEURO: Alert and appears oriented. Speech is fluent. Cranial Nerves are grossly intact. PSYCH: Alert, pleasant, affect is calm Results Diagnostic Review MRI Findings: LUMBAR SPINE MRI HISTORY: L leg radiculopathy TECHNIQUE: Multiplanar multisequence MRI of the lumbar spine was performed wit hout the use of contrast. COMPARISON: Lumbar spine 10/19/2019. FINDINGS: For the purpose of the report the L5-S1 disc space will be located on axial image . No fracture or subluxation. The conus terminates at the L1-L2 disc space level. Moderate disc space narrowing at L4-L5. Mild disc space narrowing at L1-L2 and within the lower thoracic spine. [id number]-[id number] facet degenerative changes throughout the lumbar spine. Mild paraspinal edema within the lumbar region. This is likely secondary to the adjacent facet degenerative changes. Mild left hydronephrosis, unchanged. T12-L1: Small focal central disc protrusion without significant central canal or neural foraminal narrowing. L1-L2: Small broad-based posterior disc bulge resulting in mild central canal narrowing. No significant neural foraminal narrowing. L2-L3: Small broad-based posterior disc bulge with ligamentum and facet hypertrophy resulting in mild central canal and mild bilateral neural foraminal narrowing. L3-L4: Broad-based posterior disc bulge asymmetric to the left with ligamentum and facet hypertrophy resulting in mild central canal and mild left neural foraminal narrowing. There is moderate right neural foraminal narrowing. L4-L5: Broad-based posterior disc bulge with ligamentum and facet hypertrophy resulting in moderate central canal and mild to moderate bilateral neural foraminal narrowing. L5-S1: Tiny broad-based posterior disc bulge without significant central canal narrowing. There is mild bilateral neural foraminal narrowing. IMPRESSION: 1. No fracture or subluxation within the lumbar spine. 2. Multilevel lumbar spondylosis as described above most pronounced at the L4-L5 level where there is moderate central canal narrowing. 3. Mild edema within the paraspinal muscles is likely due to the adjacent chronic degenerative changes within the facets. 4. Left-sided hydronephrosis is again noted. ACT 112: Negative or not required by law. Electronically signed by: Syed Chen M.D. 10/19/2019 7:[address] Findings: CT hip LT wo con CT DOSE: HISTORY: Pain increased pain 10 days from IM nail TECHNIQUE: Multiaxial CT images of the left hip were performed and reformatted in the sagittal and coronal plane without the use of contrast. A dose lowering technique was utilized adhering to the principles of ALARA. COMPARISON: 10/17/2019 FINDINGS: There are findings of a left hip nailing procedure. Bony alignment is grossly anatomic. Fracture of the intertrochanteric region of the left hip with avulsion of the lesser trochanter are again noted. No evidence for acetabular protrusion. Mild degenerative change of the left hip joint space. Mild postoperative soft tissue change. This is unremarkable given the recent hip pinning procedure. IMPRESSION: Anatomic alignment post left hip nailing procedure. Expected soft tissue postoperative changes. ACT 112: Negative or not required by law. The above report was generated using voice recognition software. It may contain grammatical, syntax or spelling errors. Electronically signed by: Dale Glass M.D. 10/18/2019 9:42 AM Radiology Findings: LUMBAR SPINE 3 VIEWS HISTORY: L leg radiculopathy COMPARISON: None. FINDINGS: There is no fracture. No subluxation. The sacrum is intact. Internal fixation of an old left hip fracture. Moderate disc space narrowing at L4-L5. Vascular calcifications are noted. Moderate facet degenerative changes within the lower lumbar spine. IMPRESSION: No fracture or subluxation within the lumbar spine. Moderate degenerative disease at L4-L5. ACT 112: Negative or not required by law. Electronically signed by: Syed Chen M.D. 10/19/2019 6:38 PM
[2019-10-20] MEDS: GABAPENTIN 100 MG CAP PO SCH ×2 (09:55→13:58)
--- NOTE | 2019-10-20 12:19 | Hospitalist Progress Note ---
Date of Service October 20, 2019 Assessment & Plan (1) Ankle pain, left: Patient with improved weakness and erythema to medial aspect LEFT ankle * Imaging negative for any acute fracture. Uric acid 3.5. Lyme negative * ESR and CRP both elevated at 61 and 13.7 -- concerning for bacteremia also given other elevated acute phase reactants --> ferritin and platelets both elevated as well as LFTs * Afebrile while inpatient * Blood cultures NGTD after 24 hours -- follow * Started on Vanc/Cefepime empirically -- continue for now * Limited ECHO to assess valvular function --> does have mild to moderate MR with complex calcifications in mitral region (trace MR on ECHO in [facility] August 2019) --> would consider BRIGIDA if patient agreeable * WBC elevated at 13.7k, however did receive x 1 dose prednisone 20mg PO for inflammation prior to results of ESR/CRP and blood cultures on 10/18 * UA with E.coli previous admission -- repeat negative for any infection (2) Left thigh pain: * Improving, slowly. Concerns for radicular vs focal areas of pain, as patient with alternating patterns of pain. On 10/18, isolated to L ankle, not much hip/thigh pain. On 10/19, less ankle pain and more radicular pain with ambulation * CTAP (follow up from US Liver d/t elevated liver enzymes which showed R hydro) --> R hydro resolution, L nephrolithiasis with mild hydro, abrupt change 5cm proximal to UVJ which could have been a recently passed stone vs. radiolucent stone vs stricture/lesion * Orthopedics consulted--> no surgical intervention at this time. CT Hip with anatomic alignment s/p left nailing Encouraged ambulation Continue with PO pain medications --> oxycodone to 1-2 tabs prn Ice to affected side MRI lumbar spine with multilevel spondylosis with moderate central canal narrowing --> consulted pain management about treatment options Started on gabapentin * PT/OT evals -- continue while inpatient --> patient to return to [facility] at discharge (3) Anemia: * H/h dropped to 8.1/25.4 today -- no s/sx overt bleeding. WBC elevated at 13.7k, Platelets trending back up, currently 587 * Will obtain hemoccult for completeness, however patient does have history of bleeding hemorrhoids and does endorse that she has had some blood on toilet paper while wiping * Iron studies completed and showed decreased transferrin and increased ferritin, but iron was normal. Ferritin might be an acute phase reactant as platelets are also high * CBC in AM (4) Abnormal LFTs: * Of note, had previously been on atorvastatin 40mg daily but was recently increased to 80mg daily at [facility] following recent stroke -- holding statin currently. CK wnl * Mildly elevated since CVA but appeared to be worse on admission with AST/ALT 198/354 and alk phos 420 --> trended down but back up AST 108, ALT 198, Alk phos 369 * US Liver unremarkable * Iron studies show decreased transferrin and increased Ferritin but iron was normal. Ferritin might be an acute phase reactant as platelets are also high . See above * Viral hepatitis panel negative * Follow LFTs (5) Status post-operative repair of hip fracture: * Surgical incision C/D/I -- had L hip fx with IM nailing 10/[address] Adam * Ortho on consult as above (6) Hypertension: * Unclear why losartan cut to 25mg on discharge last admission as never particularly hypotensive and was increased back to 75mg PO on 10/15 * BP had dropped to 102/57 on 10/17 --> cut back losartan to 50mg daily * BP stable at 117/65 * Continue to monitor (7) Hyperlipidemia: * Holding atorvastatin while LFTs elevated (8) Asthma: * Albuterol PRN (9) History of CVA with residual deficit: * On 09/09/19 with residual left leg weakness and mild foot drop * Continue ASA * Atorvastatin on hold as above for LFTs (10) Anxiety: * Continue lexapro 10mg PO daily * Lorazepam PRN (11) Hydronephrosis of right kidney: * Picked up incidentally on US. UA normal without blood. No Hx renal stones. * Cr around baseline * Urology consult /CTAP as above --> will need follow up US in 2-3 weeks as outpatient (12) Hydronephrosis, left: * CTAP (follow up from US Liver d/t elevated liver enzymes which showed R hydro) --> R hydro resolution, L nephrolithiasis with mild hydro, abrupt change 5cm proximal to UVJ which could have been a recently passed stone vs. radiolucent stone vs stricture/lesion * Urology consulted -- rec outpatient follow up in 2-3 weeks with repeat US to evaluate progression of L hydro Could consider repeat imaging while inpatient if patient not with significant improvement/no other source identified (13) DVT prophylaxis: * Lovenox 40mg SQ daily * Of note --> patient was supposed to be on heparin 5000 units SQ BID x 4 weeks s/p IM nailing Dispo: likely to remain inpatient 1-2 days --> follow blood cultures, ECHO as above with possible need for BRIGIDA Admission and Anticipated Discharge Date Admission Date: October 18, 2019 Supervising Physician Co-Signing Physician Notes PA Supervision Note: I did not personally see or examine the patient today, but I verified all chaney points of BILLIE Odell's assessment and plan with the following exceptions/additions: None Subjective Patient evaluated this morning. States the pain is much better today than in day s previously. Still painful with weightbearing in her left ankle that radiates up her leg and into lower back. She states the pain is greatest only when she stands on it and is not painful in her ankle at rest. Less redness today. States she believes the prednisone was helpful. Discussed pain management consults and that they are recommending gabapentin to see if that helps with pain control. Patient has been up to bathroom today with 1 assist. Discussed continuing antibiotics and awaiting blood culture results but that based on ECHO findings, it may be recommended that she have a BRIGIDA for further evaluation of possible vegetations. Patient states that that may not be something she is interested in having completed and is agreeable to revisit that topic tomorrow pending if her cultures grow anything. Denies any hematuria but does admit that she has a history of bleeding hemorrhoids and she does occasionally get blood in stool/on paper. Bright red in color. Denies any fevers or chills, chest pain or shortness of breath currently. Looking forward to working with PT/OT this afternoon and continuing to improve her strength. Questions/concerns answered at this time. Review of Systems Review of Systems: All systems reviewed & are unremarkable except as noted in HPI & below Physical Exam Physical Exam: GENERAL: This is a 74 year old female that does not appear in acute distress. Laying supine, appearing comfortable in the hospital bed. HEAD/FACE: Normocephalic and atraumatic. EYES: No drainage or conjunctival injection. ENT: Nose without bleeding or discharge. Oral mucosa moist. CHEST/AXILLA: Chest movement symmetrical. No deformities noted. ABDOMEN/GI: No distension BACK: Normal lumbar lordosis. No midline, SI joint, or facet joint tenderness. No myofascial spasm or trigger points noted. SKIN: [place], warm and dry. No rash noted. MS/EXTREMITY: No swelling, no deformities. Left hip incision appears well healed with neetu in place. There is 4/5 strength of the left lower leg. Limited strength with left hip flexion due to pain. No increase in pain with left hip internal or external rotation. No tenderness of the left hip to palpation. NEURO: Alert and appears oriented. Speech is fluent. Cranial Nerves are grossly intact. PSYCH: Alert, pleasant, affect is calm Constitutional: WD/WN, vitals as above no acute distress Eyes: + anicteric sclerae and PERRL ENMT: external ear and nose normal, oropharynx normal Neck: trachea midline, no thyromegaly Respiratory: normal respiratory effort, lungs clear to auscultation Auscultation: + diminished lung sounds Cardiovascular: Rate/Rhythm: regular rate and regular rhythm Heart Sounds: + murmur (faint 1/6 systolic ) Extremities: normal capillary refill; no edema Gastrointestinal (Abdomen): normal bowel sounds, soft, nontender, no hepatosplenomegaly Musculoskeletal: 4/5 strength LLE Left leg shortened and externally rotated -- pain with flexion of left hip secondary to pain however pain not increased with internal/external rotation today Able to dorsiflex/plantar flex today with decreased pain Skin: Left hip incision with neetu in place Area of erythema and warmth to medial aspect left ankle (improved). Minimally tender to palpation. Able to dorsiflex/plantar flex today with decreased pain no evidence of petechiae or splinter hemorrhage Neurologic: patellar DTR's 2+ bilat, sensation intact Psychiatric: A+Ox3, euthymic affect Orientation: alert and oriented x 3 Affect: + anxious affect Lymphatic: no cervical or axillary lymphadenopathy Results & Data Results & Data ([facility]) Vital Signs (Past 12 Hours) Vital Signs Temp Pulse Resp BP Pulse Ox 10/20/19 07:24 36.9 C 87 16 129/72 97 Laboratory Results 10/20/19 10/20/19 Range/Units 05:19 05:19 WBC 13.79 H (4.8-10.8) K/uL RBC 2.68 L (4.2-5.4) M/uL Hgb 8.1 L (12.0-16.0) g/dL Hct 25.4 L (37-47) % MCV 94.8 (80-100) fL MCH 30.2 (25-34) pg MCHC 31.9 L (32-36) g/dL RDW Std Deviation 51.1 H (36.4-46.3) fL RDW Coeff of Cuco 14.9 H (11.5-14.5) % Plt Count 587 H (130-400) K/uL MPV 8.9 (7.4-10.4) fL Immature Gran % (Auto) 1.2 % Neut % (Auto) 76.8 % Lymph % (Auto) 14.0 % Rogers % (Auto) 7.6 % Eos % (Auto) 0.2 % Baso % (Auto) 0.2 % Neut # (Auto) 10.59 H (1.4-6.5) K/uL Lymph # (Auto) 1.93 (1.2-3.4) K/uL Rogers # (Auto) 1.05 H (0.11-0.59) K/uL Eos # (Auto) 0.03 (0-0.5) K/uL Baso # (Auto) 0.03 (0-0.2) K/uL Immature Gran # (Auto) 0.16 H (0.00-0.02) K/uL Sodium 136 (136-145) mmol/L Potassium 4.0 (3.5-5.1) mmol/L Chloride 105 (98-107) mmol/L Carbon Dioxide 24 (21-32) mmol/L Anion Gap 7.0 (3-11) BUN 13 (7-18) mg/dl Creatinine 0.60 (0.6-1.2) mg/dl Est Cr Clr Drug Dosing 77.8 ml/min Est GFR ( Amer) 105.5 Est GFR (Non-Af Amer) 91.1 BUN/Creatinine Ratio 21.4 H (10-20) Glucose 108 H (70-99) mg/dl Calcium 9.2 (8.5-10.1) mg/dl Total Bilirubin 0.5 (0.2-1) mg/dl AST 108 H (15-37) U/L ALT 198 H (12-78) U/L Alkaline Phosphatase 369 H (45-117) U/L Total Protein 6.5 (6.4-8.2) gm/dl Albumin 2.3 L (3.4-5.0) gm/dl Globulin 4.2 H (2.5-4.0) gm/dl Albumin/Globulin Ratio 0.6 L (0.9-2) Diagnostic Findings Lumbar Spine MRI IMPRESSION: 1. No fracture or subluxation within the lumbar spine. 2. Multilevel lumbar spondylosis as described above most pronounced at the L4-L5 level where there is moderate central canal narrowing. 3. Mild edema within the paraspinal muscles is likely due to the adjacent chronic degenerative changes within the facets. 4. Left-sided hydronephrosis is again noted. ECHO The left ventricle is normal in size. Left ventricular systolic function is normal Ejection Fraction = 65-70% No regional wall motion abnormalities noted There is moderate to severe mitral annular calcification Dense 1x2cm calcification posterior mitral leaflet region There is mild to moderate mitral regurgitation The left atrial size is normal Aortic valve sclerosis moderate, without significant aortic valvular stenosis No vegetation seen (however given complex calcifications in the mitral region, consider transesophageal echocardiogram if more definitive evaluation is felt clinically necessary). PG Care Time/CCT Total # of Minutes Spent Total Time Spent with Patient: Total time spent is greater than 50% in coordination of care (as documented) at patient's floor/unit and/or counseling p atient: Coding Level of Care Code 06537 Subseq Hosp Care Lvl 3 Diagnoses Ankle pain, left M25.572 Left thigh pain M79.652 Anemia D64.9 Abnormal LFTs R94.5 Status post-operative repair of hip fracture Z98.890; Z87.81 Hypertension I10 Hypertension type: essential hypertension Hyperlipidemia E78.5 Asthma J45.909 History of CVA with residual deficit I69.30 Anxiety F41.9 Hydronephrosis of right kidney N13.30 Hydronephrosis, left N13.30 DVT prophylaxis Z29.9 (1) Hypertension Hypertension type: essential hypertension Qualified Code(s): I10 - Essential (primary) hypertension
[2019-10-20] MEDS: cefTRIAXone SODIUM 2,000 MG in DEXTROSE 5% 50 ML IV SCH (14:28)
[2019-10-20] MEDS: MELATONIN 3 MG TAB PO SCH (21:40)
[2019-10-20] MEDS: ENOXAPARIN INJ 40 MG/0.4 ML SYR SQ SCH (21:41)
[2019-10-20] MEDS: LORazepam 1 MG TAB PO PRN (23:55)
[2019-10-21] MEDS: VANCOMYCIN HCL 1,250 MG in SODIUM CHLORIDE 0.9% 250 ML IV SCH ×2 (03:01→17:41)
[2019-10-21 05:37] LABS: Hematocrit (blood only) 24.6 % (37-47); Mean Corpuscular Hemoglobin 30.4 pg (25-34); Mean Corpuscular Hgb Conc 32.5 g/dL (32-36); Mean Corpuscular Volume 93.5 fL (80-100); Mean Platelet Volume 8.6 fL (7.4-10.4); Platelet Count 591 K/uL (130-400); RDW Coefficient of Variation 14.9 % (11.5-14.5); RDW Standard Deviation 50.5 fL (36.4-46.3); Red Blood Count 2.63 M/uL (4.2-5.4); White Blood Count 7.49 K/uL (4.8-10.8)
[2019-10-21 05:50] LABS: INR 0.9 (0.9-1.1); Prothrombin Time 9.9 Seconds (9.0-12.0)
[2019-10-21] MEDS: OXYCODONE HCL IR 5 MG TAB (IMMEDIATE RELEASE) PO PRN ×4 (05:59→22:11)
[2019-10-21 06:12] LABS: Albumin Level 2.1 gm/dl (3.4-5.0); BUN Creatinine Ratio 20.6 (10-20); Calcium 8.8 mg/dl (8.5-10.1); Creatinine Clr Calc Pharmacy 76.5 ml/min; Est GFR (Non-African American) 90.6; Potassium 4.1 mmol/L (3.5-5.1)
[2019-10-21 06:15] LABS: Albumin Globulin Ratio 0.5 (0.9-2); Bilirubin,Total 0.4 mg/dl (0.2-1); Globulin 4.3 gm/dl (2.5-4.0); Total Protein 6.4 gm/dl (6.4-8.2)
--- NOTE | 2019-10-21 08:00 | Orthopedic Progress Note ---
Date of Service October 21, 2019 Assessment & Plan (1) Post-operative pain: She is still dealing with a lot of postoperative hip pain. CT scan of her hip was negative. The hardware all appears to be in good alignment. She does have some osteoarthritis of the hip. She still dealing with some sequela from the stroke including severe weakness with extension of her left great toe and mild weakness with dorsiflexion of her left ankle. She was seen by pain management. They do not feel that this is coming from her lumbar spine. They did start her on gabapentin and continue the Flexeril and the oxycodone. At this point we will treat her with physical therapy and pain management. Present on Admission?: Yes Subjective Marcie was seen and examined at bedside this morning. Unfortunately she is still having a lot of pain. Her pain is now only with weightbearing. She is very comfortable now her lying in bed. She is still unable to weight-bear on her leg but overall she is improving. She was seen by pain management yesterday. They kept her on the Flexeril and the oxycodone and they started her on gabapentin. They do not feel that her pain and weakness is coming from her lumbar spine. They feel the pain is coming from the hip fracture and the weakness, including the inability to extend the great toe, is coming from her stroke.. Physical Exam Musculoskeletal: On physical examination of the left leg, she is much more comfortable with logrolling. Unable to do range of motion of her hip without much pain. There are no signs of infection. The incisions are clean and dry without drainage. She still has a little bit of weakness with dorsiflexion of her ankle and inability to extend her left great toe. Results & Data ([facility]) Vital Signs (Past 12 Hours) Vital Signs Temp Pulse Resp BP BP Pulse Ox 10/21/19 07:37 36.9 C 95 H 16 147/75 H 97 10/20/19 23:41 36.9 C 89 16 143/71 H 98 PG Care Time/CCT Total # of Minutes Spent Total Time Spent with Patient: Total time spent is greater than 50% in coordination of care (as documented) at patient's floor/unit and/or counseling patient: Coding Level of Care Code 92845 Subseq Hosp Care Lvl 2 Diagnoses Post-operative pain G89.18
--- NOTE | 2019-10-21 08:57 | Pain Management Progress Note ---
Date of Service October 21, 2019 Assessment & Plan (1) Left thigh pain: Will restart Flexeril but at 5mg TID and Gabapentin at 100mg BID. Continue Oxycodone for PRN pain Contiue physical therapy. Subjective Patient did notice an improvement with the initiation of Gabapentin yesterday. She states that she fell asleep in the afternoon and woke up around 7 or 8 PM and was not sure if it was AM or PM. Patient states that she was not confused b ut sometimes if she falls asleep for a nap that late in the day she isn't sure if it is AM or PM. Reportedly nursing found her to be confused so Gabapentin and Flexeril were put on hold. She is reporting improvement in pain today and has been able to ambulate to the bathroom and back with assistance. There is still difficulty with weight bearing on the left leg. There is a mild aching in the low back which she attributes to laying in the hospital bed. Patient does plan to be discharged back to rehab facility. No bowel/bladder incontinence, saddle anesthesia. There is mild left leg weakness. Pain Assessment Pain Assessment Full Body Front + Back: 1. [facility] Combined Pain Scale: 5-Moderate - Cannot perform normal tasks without increase in pain Physical Exam Physical Exam: GENERAL: This is a 74 year old female that does not appear in acute distress. Laying supine, appearing comfortable in the hospital bed. HEAD/FACE: Normocephalic and atraumatic. EYES: No drainage or conjunctival injection. CHEST/AXILLA: Chest movement symmetrical. No deformities noted. BACK: No TTP. MS/EXTREMITY: No swelling, no deformities. Left hip incision appears well healed with neetu in place. There is 3-4/5 strength of the left lower leg. Successful log rolling of the left hip. NEURO: Alert and appears oriented. Speech is fluent. Cranial Nerves are grossly intact. PSYCH: Alert, pleasant, affect is calm
[2019-10-21] MEDS ORDERED: CYCLOBENZAPRINE HCL 5 MG TAB PO SCH (09:00)
[2019-10-21] MEDS ORDERED: GABAPENTIN 100 MG CAP PO SCH (09:00)
[2019-10-21] MEDS: FLUTICASONE/VILANTEROL 200/25MCG 14 PUFFS/INHALER INH SCH (09:14)
[2019-10-21] MEDS: ESCITALOPRAM OXALATE 10 MG TAB PO SCH (09:14)
[2019-10-21] MEDS: POTASSIUM CHLORIDE 20 MEQ TABCR PO SCH ×2 (09:14→21:04)
[2019-10-21] MEDS: FLUTICASONE PROPIONATE NA SPR 16 GM BTL NAE SCH (09:14)
[2019-10-21] MEDS: ASPIRIN 81 MG ECTAB PO SCH (09:15)
[2019-10-21] MEDS: LOSARTAN POTASSIUM 50 MG TAB PO SCH (09:15)
--- NOTE | 2019-10-21 10:44 | Hospitalist Progress Note ---
Date of Service October 21, 2019 Assessment & Plan (1) Abnormal LFTs: * Of note, had previously been on atorvastatin 40mg daily but was recently increased to 80mg daily at [facility] following recent stroke -- holding statin currently. CK wnl * Mildly elevated since CVA but appeared to be worse on admission with AST/ALT 198/354 and alk phos 420 --> trended down but back up and now markedly elevated AST 510, AST 520, Alk phos 528 LDH 369 Aldolase elevated * US Liver unremarkable. CT A/P without noted abnormality. * Iron studies show decreased transferrin and increased Ferritin but iron was normal. Ferritin might be an acute phase reactant as platelets are also high . See above * Viral hepatitis panel negative * Follow LFTs * CT Chest without significant abnormality * CTA/P with mild left hydro, improved from prior imaging. No obstructing stones, normal R kidney --> no abnormality noted on liver/spleen/GB * GI consulted for markedly elevated LFTs despite holding statin. * Has been on losartan and atorvastatin [employer] however statin held and still elevated. -- appreciate assistance * Possible that elevated LFTs related to possible reaction to general anesthesia that she received for her hip operation as they have been elevated prior to this admission for her IM hip nailing. * He added TRENTON, alpha 1 antitrypsin level, iron, iron binding and tissue transglutaminase with IgA level for possible other causes of liver disease * INR wnl (2) Ankle pain, left: Patient with improved weakness and erythema to medial aspect LEFT ankle * Imaging negative for any acute fracture. Uric acid 3.5. Lyme negative * ESR and CRP both elevated at 61 and 13.7 -- concerning for bacteremia also given other elevated acute phase reactants --> ferritin and platelets both elevated as well as LFTs. Will repeat inflammatory marker in AM * Afebrile while inpatient * Blood cultures NGTD after 24 hours -- follow * Started on Vanc/Cefepime empirically -- continue for now * Limited ECHO to assess valvular function --> does have mild to moderate MR with complex calcifications in mitral region (trace MR on ECHO in [facility] August 2019) --> would consider BRIGIDA if patient agreeable * WBC now wnl at 7.4k from 13.7k, however did receive x 1 dose prednisone 20mg PO for inflammation prior to results of ESR/CRP and blood cultures on 10/18 * UA with E.coli previous admission -- repeat negative for any infection * Spoke with rheumatology road monkey for concerns of a myositis given elevated aldolase, LDH, AST/ALT/Alk Phos, ESR, CRP and improvement of symptoms with 1x dose of prednisone. Given lack of elevated CK on admission or on repeat, highly unlikely --> would be more likely to be an acute toxic myositis if anything given the abrupt presentation but not really any new medications outside of flexeril/gabapentin (now on hold) Possible that elevated aldolase level potentially secondary to liver injury ESR, CRP in AM (3) Left thigh pain: * Improving, slowly. Concerns for radicular vs focal areas of pain, as patient with alternating patterns of pain. On 10/18, isolated to L ankle, not much hip/thigh pain. On 10/19, less ankle pain and more radicular pain with ambulation * CTAP (follow up from US Liver d/t elevated liver enzymes which showed R hydro) --> R hydro resolution, L nephrolithiasis with mild hydro, abrupt change 5cm proximal to UVJ which could have been a recently passed stone vs. radiolucent stone vs stricture/lesion. Repeat as above * Orthopedics consulted--> no surgical intervention at this time. CT Hip with anatomic alignment s/p left nailing Encouraged ambulation Continue with PO pain medications --> oxycodone to 1-2 tabs prn Ice to affected side MRI lumbar spine with multilevel spondylosis with moderate central canal narrowing --> consulted pain management about treatment options Started on gabapentin but held as they had reported confusion. Patient stated she took a nap but was unaware of the time when she woke up but denies any confusion evening 10/19 * PT/OT evals -- continue while inpatient --> patient to return to [facility] at discharge (4) Anemia: * H/h dropped to 8.0/24.6 today -- no s/sx overt bleeding. * WBC trending down, now 7.4k * Platelets remain elevated at 591 * Will obtain hemoccult for completeness, however patient does have history of bleeding hemorrhoids and does endorse that she has had some blood on toilet paper while wiping * Iron studies completed and showed decreased transferrin and increased ferritin, but iron was normal. Ferritin might be an acute phase reactant as platelets are also high * CBC in AM (5) Status post-operative repair of hip fracture: * Surgical incision C/D/I -- had L hip fx with IM nailing 10/[address] Adam * Ortho on consult as above (6) Hypertension: * Unclear why losartan cut to 25mg on discharge last admission as never particularly hypotensive and was increased back to 75mg PO on 10/15 * BP had dropped to 102/57 on 10/17 --> cut back losartan to 50mg daily * BP elevated at 147/75 * Continue to monitor (7) Hyperlipidemia: * Holding atorvastatin while LFTs elevated (8) Asthma: * Albuterol PRN (9) History of CVA with residual deficit: * On 09/09/19 with residual left leg weakness and mild foot drop * Continue ASA * Atorvastatin on hold as above for LFTs (10) Anxiety: * Continue lexapro 10mg PO daily * Lorazepam PRN (11) Hydronephrosis of right kidney: * Picked up incidentally on US. UA normal without blood. No Hx renal stones. * Cr around baseline * Urology consult /CTAP as above --> will need follow up US in 2-3 weeks as outpatient (12) Hydronephrosis, left: * CTAP (follow up from US Liver d/t elevated liver enzymes which showed R hydro) --> R hydro resolution, L nephrolithiasis with mild hydro, abrupt change 5cm proximal to UVJ which could have been a recently passed stone vs. radiolucent stone vs stricture/lesion * Urology consulted -- rec outpatient follow up in 2-3 weeks with repeat US to evaluate progression of L hydro Could consider repeat imaging while inpatient if patient not with significant improvement/no other source identified (13) DVT prophylaxis: * Lovenox 40mg SQ daily * Of note --> patient was supposed to be on heparin 5000 units SQ BID x 4 weeks s/p IM nailing Admission and Anticipated Discharge Date Admission Date: October 18, 2019 Supervising Physician Co-Signing Physician Notes PA Supervision Note: I did not personally see or examine the patient today, but I verified all chaney points of BILLIE Odell's assessment and plan with the following exceptions/additions: None Subjective Patient evaluated this morning. Pain about the same but she has been getting up more frequently and bearing weight. Still with ankle pain with weight bearing. Now with increased hip/thigh pain today. Per nursing, patient had episode of confusion with gabapentin, however patient states that's what everyone keeps asking her about and that she just took a nap and woke up and it was light out and that she was unsure if it was day or night. She states she typically does not nap during the day but that in the hospital she doesn't have much else to do. Discussed obtaining imaging this afternoon to see if any clearer findings for liver to explain current elevations. She does note that prednisone did seem to be the thing that helped her the most. Denies fevers, chills, chest pain, shortness of breath, abdominal pain, n/v/d, dysuria at this time. Review of Systems Review of Systems: All systems reviewed & are unremarkable except as noted in HPI & below Physical Exam Constitutional: WD/WN, vitals as above no acute distress Eyes: + anicteric sclerae and PERRL ENMT: external ear and nose normal, oropharynx normal Neck: trachea midline, no thyromegaly Respiratory: normal respiratory effort, lungs clear to auscultation Cardiovascular: Rate/Rhythm: regular rate and regular rhythm Heart Sounds: + murmur (faint 1/6 systolic ) Extremities: normal capillary refill; no edema Gastrointestinal (Abdomen): normal bowel sounds, soft, nontender, no hepatosplenomegaly Musculoskeletal: 4/5 strength LLE Left leg shortened and externally rotated -- pain with flexion of left hip secondary to pain however pain not increased with internal/external rotation today Able to dorsiflex/plantar flex today with decreased pain Skin: Left hip incision with neetu in place no evidence of petechiae or splinter hemorrhage L medial ankle with slight warmth -- much improved minimally tender to palpation able to plantar/dorsiflex but with increased pain to thigh/hip sensation intact 2+ dp, pt pulses Neurologic: patellar DTR's 2+ bilat, sensation intact Psychiatric: Orientation: alert and oriented x 3 Lymphatic: no cervical or axillary lymphadenopathy Results & Data Results & Data ([facility]) Vital Signs (Past 12 Hours) Vital Signs Temp Pulse Resp BP BP Pulse Ox 10/21/19 07:37 36.9 C 95 H 16 147/75 H 97 10/20/19 23:41 36.9 C 89 16 143/71 H 98 Laboratory Results 10/21/19 10/21/19 10/21/19 Range/Units 15:51 15:35 15:35 WBC (4.8-10.8) K/uL RBC (4.2-5.4) M/uL Hgb (12.0-16.0) g/dL Hct (37-47) % MCV (80-100) fL MCH (25-34) pg MCHC (32-36) g/dL RDW Std Deviation (36.4-46.3) fL RDW Coeff of Cuco (11.5-14.5) % Plt Count (130-400) K/uL MPV (7.4-10.4) fL Absolute Nucleated RBC (0-0) K/uL Nucleated RBC % (auto) % PT (9.0-12.0) Seconds INR (0.9-1.1) Sodium 131 L (136-145) mmol/L Potassium 3.7 (3.5-5.1) mmol/L Chloride 102 (98-107) mmol/L Carbon Dioxide 21 (21-32) mmol/L Anion Gap 8.0 (3-11) BUN 12 (7-18) mg/dl Creatinine 0.85 (0.6-1.2) mg/dl Est Cr Clr Drug Dosing 54.9 ml/min Est GFR ( Amer) 79.3 Est GFR (Non-Af Amer) 68.5 BUN/Creatinine Ratio 14.0 (10-20) Glucose 92 (70-99) mg/dl Calcium 9.0 (8.5-10.1) mg/dl Iron 46 (35-150) mcg/dl TIBC 441 (250-450) mcg/dl Total Bilirubin 0.5 (0.2-1) mg/dl AST 474 H (15-37) U/L ALT 562 H (12-78) U/L Alkaline Phosphatase 677 H (45-117) U/L Lactate Dehydrogenase (84-246) U/L Total Creatine Kinase (26-192) U/L Total Protein 7.4 (6.4-8.2) gm/dl Albumin 2.4 L (3.4-5.0) gm/dl Globulin 5.0 H (2.5-4.0) gm/dl Albumin/Globulin Ratio 0.5 L (0.9-2) Vancomycin Trough 16.4 (See Comment) mcg/ml IgA 338.0 (70-400) mg/dl Anaplasma Smear 10/21/19 10/21/19 10/21/19 Range/Units 12:10 12:10 05:26 WBC (4.8-10.8) K/uL RBC (4.2-5.4) M/uL Hgb (12.0-16.0) g/dL Hct (37-47) % MCV (80-100) fL MCH (25-34) pg MCHC (32-36) g/dL RDW Std Deviation (36.4-46.3) fL RDW Coeff of Cuco (11.5-14.5) % Plt Count (130-400) K/uL MPV (7.4-10.4) fL Absolute Nucleated RBC (0-0) K/uL Nucleated RBC % (auto) % PT 9.9 (9.0-12.0) Seconds INR 0.9 (0.9-1.1) Sodium (136-145) mmol/L Potassium (3.5-5.1) mmol/L Chloride (98-107) mmol/L Carbon Dioxide (21-32) mmol/L Anion Gap (3-11) BUN (7-18) mg/dl Creatinine (0.6-1.2) mg/dl Est Cr Clr Drug Dosing ml/min Est GFR ( Amer) Est GFR (Non-Af Amer) BUN/Creatinine Ratio (10-20) Glucose (70-99) mg/dl Calcium (8.5-10.1) mg/dl Iron (35-150) mcg/dl TIBC (250-450) mcg/dl Total Bilirubin (0.2-1) mg/dl AST (15-37) U/L ALT (12-78) U/L Alkaline Phosphatase (45-117) U/L Lactate Dehydrogenase 369 H (84-246) U/L Total Creatine Kinase 42 (26-192) U/L Total Protein (6.4-8.2) gm/dl Albumin (3.4-5.0) gm/dl Globulin (2.5-4.0) gm/dl Albumin/Globulin Ratio (0.9-2) Vancomycin Trough (See Comment) mcg/ml IgA (70-400) mg/dl Anaplasma Smear 10/21/19 10/21/19 Range/Units 05:26 05:26 WBC 7.49 (4.8-10.8) K/uL RBC 2.63 L (4.2-5.4) M/uL Hgb 8.0 L (12.0-16.0) g/dL Hct 24.6 L (37-47) % MCV 93.5 (80-100) fL MCH 30.4 (25-34) pg MCHC 32.5 (32-36) g/dL RDW Std Deviation 50.5 H (36.4-46.3) fL RDW Coeff of Cuco 14.9 H (11.5-14.5) % Plt Count 591 H (130-400) K/uL MPV 8.6 (7.4-10.4) fL Absolute Nucleated RBC 0.00 (0-0) K/uL Nucleated RBC % (auto) 0.0 % PT (9.0-12.0) Seconds INR (0.9-1.1) Sodium 137 (136-145) mmol/L Potassium 4.1 (3.5-5.1) mmol/L Chloride 106 (98-107) mmol/L Carbon Dioxide 25 (21-32) mmol/L Anion Gap 6.0 (3-11) BUN 13 (7-18) mg/dl Creatinine 0.61 (0.6-1.2) mg/dl Est Cr Clr Drug Dosing 76.5 ml/min Est GFR ( Amer) 105.0 Est GFR (Non-Af Amer) 90.6 BUN/Creatinine Ratio 20.6 H (10-20) Glucose 93 (70-99) mg/dl Calcium 8.8 (8.5-10.1) mg/dl Iron (35-150) mcg/dl TIBC (250-450) mcg/dl Total Bilirubin 0.4 (0.2-1) mg/dl AST 510 H (15-37) U/L ALT 520 H (12-78) U/L Alkaline Phosphatase 528 H (45-117) U/L Lactate Dehydrogenase (84-246) U/L Total Creatine Kinase (26-192) U/L Total Protein 6.4 (6.4-8.2) gm/dl Albumin 2.1 L (3.4-5.0) gm/dl Globulin 4.3 H (2.5-4.0) gm/dl Albumin/Globulin Ratio 0.5 L (0.9-2) Vancomycin Trough (See Comment) mcg/ml IgA (70-400) mg/dl Anaplasma Smear See Comment Diagnostic Findings CT Chest IMPRESSION: No significant abnormality identified within the chest. CT A/P 1. Mild left hydroureteronephrosis. This has improved in the interval. No obstructing stones identified within the proximal to mid left ureter. The distal ureter is not included on this study. 2. Stable left-sided nephrolithiasis. 3. Normal right kidney. PG Care Time/CCT Total # of Minutes Spent Total Time Spent with Patient: Total time spent is greater than 50% in coordination of care (as documented) at patient's floor/unit and/or counseling patient: Coding Level of Care Code 22483 Subseq Hosp Care Lvl 3 Diagnoses Abnormal LFTs R94.5 Ankle pain, left M25.572 Left thigh pain M79.652 Anemia D64.9 Status post-operative repair of hip fracture Z98.890; Z87.81 Hypertension I10 Hypertension type: essential hypertension Hyperlipidemia E78.5 Asthma J45.909 History of CVA with residual deficit I69.30 Anxiety F41.9 Hydronephrosis of right kidney N13.30 Hydronephrosis, left N13.30 DVT prophylaxis Z29.9 (1) Hypertension Hypertension type: essential hypertension Qualified Code(s): I10 - Essential (primary) hypertension
[2019-10-21] MEDS: LORazepam 0.5 MG TAB PO PRN (13:32)
[2019-10-21] MEDS ORDERED: IOVERSOL 100ml IV PRN (13:46)
--- NOTE | 2019-10-21 14:03 | CT Scan Report ---
CT chest w con CT DOSE: 386.23 mGy.cm HISTORY: Abnormal liver function tests elevated LFT TECHNIQUE: Multiaxial CT images of the chest were performed following the intravenous administration of contrast. A dose lowering technique was utilized adhering to the principles of ALARA. COMPARISON: None. FINDINGS: The lungs are clear. The mediastinal vascular structures are within normal limits. No media stinal or hilar lymphadenopathy. No pleural effusion or pneumothorax. Limited views of the upper abdo men demonstrate a normal liver and spleen. IMPRESSION: No significant abnormality identified within the chest. ACT 112: Negative or not required by law. The above report was generated using voice recognition software. It may contain grammatical, syntax or spelling errors. Electronically signed by: Dale Glass M.D. 10/21/2019 2:01 PM
--- NOTE | 2019-10-21 14:06 | CT Scan Report ---
CT abdomen w IV con HISTORY: hydro, elevated LFTs TECHNIQUE: Multiaxial CT images of the abdomen were performed following the use of intravenous contra st. COMPARISON STUDY: Abdomen and pelvis CT 10/17/2019. FINDINGS: Punctate calcified granuloma within the left lower lobe. No pneumoperitoneum. No pneumatosi s. No suspicious lytic or blastic osseous lesions. Dense mitral annulus calcifications. The liver, ga llbladder, pancreas, spleen, and adrenal glands are unremarkable. Stable left-sided nephrolithiasis. Dominant stone within the lower pole measures 5 mm. The mild left hydronephrosis has slightly improve d. No right-sided hydronephrosis. The kidneys enhance normally. No retroperitoneal lymphadenopathy. M oderate calcified plaque within the normal caliber abdominal aorta. The visualized loops of bowel nahed w no wall thickening or obstruction. IMPRESSION: 1. Mild left hydroureteronephrosis. This has improved in the interval. No obstructing stones identifi ed within the proximal to mid left ureter. The distal ureter is not included on this study. 2. Stable left-sided nephrolithiasis. 3. Normal right kidney. ACT 112: Negative or not required by law. Electronically signed by: Syed Chen M.D. 10/21/2019 2:05 PM
[2019-10-21] MEDS ORDERED: VANCOMYCIN TROUGH ONE (15:30)
--- NOTE | 2019-10-21 15:52 | Consultation Report ---
DATE OF CONSULTATION: 10/21/2019 GASTROINTESTINAL CONSULTATION NOTE REASON FOR EVALUATION: Abnormal liver tests. HISTORY OF PRESENT ILLNESS: The patient is a 74-year-old admitted on 10/16/2019 following a fall at the rehab center where she was recovering from a stroke on 09/15. During the stroke, she suffered left hemiparesis, but made a significant recovery. She just had some residual left-sided leg weakness and was getting ready to be discharged and ambulating with a walker, but fell and fractured her left femur prompting hospitalization and subsequent surgery and repair of left hip. While recovering in the hospital, the patient has developed abnormal liver tests in a mixed pattern with aminotransferases in the 500s as well as an alkaline phosphatase in the 500 range. Her bilirubin is normal. The patient reports no prior history of any liver disease. Her outpatient medications were losartan and Lipitor. She does not drink any significant alcohol and has had no symptoms such as jaundice, right upper quadrant pain, loss of appetite, nausea, vomiting. She has had 2 CTs of the abdomen as well as an ultrasound that did not show any structural abnormalities of the liver or biliary tree. PAST MEDICAL HISTORY: Remarkable for CVA with left hemiparesis, improving. She also had a left hip fracture, hypertension, hyperlipidemia, asthma, anxiety, right-sided hydronephrosis. ALLERGIES: CELEBREX. FAMILY HISTORY: Mother had diabetes, hypertension and heart attack. Sister has diabetes. SOCIAL HISTORY: The patient feels safe at home. She is retired. She is and does not smoke, drinks wine infrequently on holidays or special occasions only. REVIEW OF SYSTEMS: Positive for some residual left leg weakness and some bruising in the abdomen from injection sites. PHYSICAL EXAMINATION: GENERAL: The patient appears awake, alert, in no acute distress. VITAL SIGNS: Current blood pressure is 147/75, pulse 95, temperature is 36.9, room air saturation 97%. SKIN: Nonicteric. She does have some bruising in the lower abdomen, particularly on the right. Liver is not palpably enlarged or tender. No signs of jaundice. HEAD: There are no signs of encephalopathy. IMPRESSION AND PLAN: The patient has mixed abnormal liver tests. I suspect that this is some form of injury to the liver and not anything structural. She has not really changed any of her medications significantly. It is possible that this could be a reaction to the general anesthesia that she received for her hip operation. Her serologic tests for hepatitis A, B and C have been negative. I plan on checking an TR[place], alpha 1 antitrypsin level, iron, iron binding and tissue transglutaminase with IgA level to check for other potential causes of liver disease. We will continue to follow the patient serially with liver profiles and await these test results. SED
[2019-10-21 16:16] LABS: Albumin Level 2.4 gm/dl (3.4-5.0); Creatinine Clr Calc Pharmacy 54.9 ml/min; Est GFR (African American) 79.3; Est GFR (Non-African American) 68.5; Potassium 3.7 mmol/L (3.5-5.1)
[2019-10-21 16:19] LABS: Albumin Globulin Ratio 0.5 (0.9-2); Bilirubin,Total 0.5 mg/dl (0.2-1); Total Protein 7.4 gm/dl (6.4-8.2)
--- NOTE | 2019-10-21 16:24 | Pharmacy Report ---
Pharmacy Abx Dose Short Note - Date of Service October 21, 2019 - Assessment & Plan Assessment 74 year old F receiving IV Vancomycin + Ceftriaxone for empiric treatment of post-op infection * Day #3 of antimicrobial therapy. Provider would like to continue for additional 24 hours. * Afebrile. No leukocytosis. Renal fxn stable. Cultures negative to date. Plan Vancomycin * Trough level of 16.2 mcg/mL is therapeutic * Continue dose of 1250 mg IV every 12 hours * Goal trough level: 15 - 20 mcg/mL * Will not order another trough unless therapy is to be extended beyond tomorrow (10/21). Pharmacy will continue to follow and will adjust dose/frequency as necessary. Thank you.
[2019-10-21] MEDS: cefTRIAXone SODIUM 2,000 MG in DEXTROSE 5% 50 ML IV SCH (16:54)
[2019-10-21] MEDS: MELATONIN 3 MG TAB PO SCH (21:03)
[2019-10-21] MEDS: ENOXAPARIN INJ 40 MG/0.4 ML SYR SQ SCH (21:04)
[2019-10-21] MEDS: LORazepam 1 MG TAB PO PRN (23:24)
[2019-10-22] MEDS: VANCOMYCIN HCL 1,250 MG in SODIUM CHLORIDE 0.9% 250 ML IV SCH ×2 (03:45→16:27)
[2019-10-22 07:22] LABS: Basophils # (auto) 0.05 K/uL (0-0.2); Basophils % (auto) 0.7 %; Eosinophils # (auto) 0.27 K/uL (0-0.5); Eosinophils % (auto) 3.7 %; Hematocrit (blood only) 25.7 % (37-47); Hemoglobin 7.9 g/dL (12.0-16.0); Immature Granulocytes % (auto) 1.4 %; Lymphocytes # (auto) 1.53 K/uL (1.2-3.4); Lymphocytes % (auto) 21.1 %; Mean Corpuscular Hemoglobin 29.4 pg (25-34); Mean Corpuscular Hgb Conc 30.7 g/dL (32-36); Mean Corpuscular Volume 95.5 fL (80-100); Mean Platelet Volume 8.6 fL (7.4-10.4); Monocytes # (auto) 0.74 K/uL (0.11-0.59); Monocytes % (auto) 10.2 %; Neutrophils # (auto) 4.55 K/uL (1.4-6.5); Neutrophils % (auto) 62.9 %; Platelet Count 771 K/uL (130-400); RDW Coefficient of Variation 14.8 % (11.5-14.5); RDW Standard Deviation 51.2 fL (36.4-46.3); Red Blood Count 2.69 M/uL (4.2-5.4); White Blood Count 7.24 K/uL (4.8-10.8)
[2019-10-22 07:57] LABS: Alanine Aminotransferase 392 U/L (12-78); Albumin Level 2.3 gm/dl (3.4-5.0); Aspartate Aminotransferase 220 U/L (15-37); BUN Creatinine Ratio 17.3 (10-20); Bilirubin Direct < 0.1 mg/dl (0-0.2); Blood Urea Nitrogen 10 mg/dl (7-18); Carbon Dioxide 27 mmol/L (21-32); Chloride 104 mmol/L (98-107); Creatinine Clr Calc Pharmacy 77.8 ml/min; Est GFR (African American) 105.5; Est GFR (Non-African American) 91.1; Glucose 92 mg/dl (70-99); Sodium 137 mmol/L (136-145)
[2019-10-22 08:00] LABS: Alkaline Phosphatase 572 U/L (45-117); Bilirubin,Total 0.4 mg/dl (0.2-1); Total Protein 6.9 gm/dl (6.4-8.2)
[2019-10-22] MEDS: FLUTICASONE/VILANTEROL 200/25MCG 14 PUFFS/INHALER INH SCH (08:24)
[2019-10-22] MEDS: LOSARTAN POTASSIUM 50 MG TAB PO SCH (08:25)
[2019-10-22] MEDS: POTASSIUM CHLORIDE 20 MEQ TABCR PO SCH ×2 (08:25→22:07)
[2019-10-22] MEDS: ASPIRIN 81 MG ECTAB PO SCH (08:25)
[2019-10-22] MEDS: FLUTICASONE PROPIONATE NA SPR 16 GM BTL NAE SCH (08:25)
[2019-10-22] MEDS: ESCITALOPRAM OXALATE 10 MG TAB PO SCH (08:25)
[2019-10-22] MEDS: CHOLECALCIFEROL 1,000 UNITS 25 MCG TAB PO SCH (09:31)
[2019-10-22] MEDS: OXYCODONE HCL IR 5 MG TAB (IMMEDIATE RELEASE) PO PRN ×4 (10:43→22:07)
--- NOTE | 2019-10-22 15:16 | Progress Notes ---
DATE: 10/22/2019 SUBJECTIVE: The patient reports today she feels better than she has since being hospitalized. She is eating a heart healthy diet. Her appetite has improved. She has no abdominal pain, nausea or vomiting. Her liver tests are starting to improve. Her AST has gone from 474 to 220, ALT 562 down to 392, alkaline phosphatase 677 down to 574. Bilirubin continues to remain normal. Recent CAT scan shows no anatomic abnormality of the liver or biliary tree. PHYSICAL EXAMINATION: GENERAL: The patient appears awake, alert, in no acute distress. VITAL SIGNS: Blood pressure is 130/67, pulse 85 and regular. She is afebrile. Room air saturations 95%. ABDOMEN: Shows some right lower abdomen bruising from heparin. There are no masses, tenderness, or hepatosplenomegaly. MUSCULOSKELETAL: There are no signs of any hematoma at her left hip surgical site or in the retroperitoneal area in the back. LABORATORY DATA: Her iron, iron binding capacity are normal. Alpha-1 antitrypsin level is pending. TRENTON is pending. Hepatitis A, B and C serologies are negative. Tissue transglutaminase is also pending. IMPRESSION AND PLAN: The patient had an episode of abnormal liver tests of unclear etiology. It is possible that this was a toxic reaction to either medication or anesthesia that she received. She has been relatively asymptomatic through it and her scans are normal. She is improving. Some of her blood tests are still pending. We can continue to follow her as an outpatient as needed. Dr. Tony Plunkett from [facility] is covering this weekend for any gastrointestinal input that may be needed.
[2019-10-22] MEDS: cefTRIAXone SODIUM 2,000 MG in DEXTROSE 5% 50 ML IV SCH (15:47)
--- NOTE | 2019-10-22 16:34 | Hospitalist Progress Note ---
Date of Service October 22, 2019 Assessment & Plan (1) Abnormal LFTs: * Of note, had previously been on atorvastatin 40mg daily but was recently increased to 80mg daily at [place] following recent stroke -- holding statin since admission. CK wnl * Mildly elevated since CVA but appeared to be worse on admission with AST/ALT 198/354 and alk phos 420 * US Liver unremarkable. CT A/P without noted abnormality. * Iron studies show decreased transferrin and increased Ferritin but iron was normal. Ferritin might be an acute phase reactant as platelets are also high . See above * Viral hepatitis panel negative * CT Chest without significant abnormality * CTAbd with mild left hydro, improved from prior imaging. No obstructing stones, normal R kidney --> no abnormality noted on liver/spleen/GB GI consulted for markedly elevated LFTs despite holding statin -- appreciate assistance * [place], alpha 1 antitrypsin level, tissue transglutaminase with IgA pending * Possible that elevated LFTs related to possible reaction to general anesthesia that she received for her hip operation as they have been elevated prior to this admission for her IM hip nailing. * INR wnl * CMV, EBV added, pending * Hematology consult pending -- appreciate assistance In regards to ankle/hip/thigh pain * ESR and CRP both elevated at 61 and 13.7 on admission concerning for bacteremia also given other elevated acute phase reactants --> ferritin and platelets both elevated as well as LFTs. * Limited ECHO to assess valvular function --> does have mild to moderate MR with complex calcifications in mitral region (trace MR on ECHO in [place] August 2019) Inflammatory markers trending down --> ESR 43 (was 63), CRP 10.6 (was 13.7), WBC 7.2k * LFTs still markedly elevated, but trending down -- AST 220, ALT 392, Alk phos 572. Bilirubin wnl * Blood cultures without growth * Will discontinue IV antibiotics at this time * Spoke with rheumatology stunt person for concerns of a myositis given elevated aldolase, LDH, AST/ALT/Alk Phos, ESR, CRP and improvement of symptoms with 1x dose of prednisone. Given lack of elevated CK on admission or on repeat, highly unlikely --> would be more likely to be an acute toxic myositis if anything given the abrupt presentation but not really any new medications outside of flexeril/gabapentin (now discontinued) Possible that elevated aldolase level potentially secondary to liver injury * Spoke with ID at [facility] -- suggested tagged blood with bone scan but given recent fracture, would likely be inconclusive per ortho team * Was going to order MRI pelvis/thigh/ankle, however patient would like to avoid further testing -- cancelled at this time * Monitor morning labs/patient progress off antibiotics (2) Left thigh pain: Improving, slowly. Concerns for radicular vs focal areas of pain, as patient with alternating patterns of pain. On 10/18, isolated to L ankle, not much hip/thigh pain. On 10/19, less ankle pain and more radicular pain with ambulation * CTAP (follow up from US Liver d/t elevated liver enzymes which showed R hydro) --> R hydro resolution, L nephrolithiasis with mild hydro, abrupt change 5cm proximal to UVJ which could have been a recently passed stone vs. radiolucent stone vs stricture/lesion. Repeat as above * Orthopedics consulted--> no surgical intervention at this time. CT Hip with anatomic alignment s/p left nailing Encouraged ambulation Continue with PO pain medications --> oxycodone to 1-2 tabs prn Ice to affected side MRI lumbar spine with multilevel spondylosis with moderate central canal narrowing --> consulted pain management about treatment options * Started on gabapentin but held as they had reported confusion. Patient stated she took a nap but was unaware of the time when she woke up but denies any confusion evening 10/19. Discontinued * PT/OT evals -- continue while inpatient --> patient to return to [facility] at discharge (3) Ankle pain, left: Patient with improved weakness and erythema to medial aspect LEFT ankle * Imaging negative for any acute fracture. Uric acid 3.5. Lyme negative. See above (4) Anemia: * H/h dropped to 7.9/25.7 -- no s/sx overt bleeding. * WBC trending down, now 7.2k * Platelets remain elevated at 771 * Will obtain hemoccult for completeness, however patient does have history of bleeding hemorrhoids and does endorse that she has had some blood on toilet paper while wiping * Iron studies completed and showed decreased transferrin and increased ferritin, but iron was normal. Ferritin might be an acute phase reactant as platelets are also high * Hematology consult pending -- appreciate assistance * CBC in AM (5) Status post-operative repair of hip fracture: * Surgical incision C/D/I -- had L hip fx with IM nailing 10/[address] Adam * Ortho on consult as above (6) Hypertension: * Unclear why losartan cut to 25mg on discharge last admission as never particularly hypotensive and was increased back to 75mg PO on 10/15 * BP had dropped to 102/57 on 10/17 --> cut back losartan to 50mg daily * BP controlled at 127/63 * Continue to monitor (7) Hyperlipidemia: * Holding atorvastatin while LFTs elevated (8) Asthma: * Albuterol PRN (9) History of CVA with residual deficit: * On 09/09/19 with residual left leg weakness and mild foot drop * Continue ASA * Atorvastatin on hold as above for LFTs (10) Anxiety: * Continue lexapro 10mg PO daily * Lorazepam PRN (11) Hydronephrosis of right kidney: * Picked up incidentally on US. UA normal without blood. No Hx renal stones. * Cr around baseline * Urology consult CT as above --> will need follow up US in 2-3 weeks as outpatient (12) Hydronephrosis, left: * CTAP (follow up from US Liver d/t elevated liver enzymes which showed R hydro) --> R hydro resolution, L nephrolithiasis with mild hydro, abrupt change 5cm proximal to UVJ which could have been a recently passed stone vs. radiolucent stone vs stricture/lesion * Urology consulted -- rec outpatient follow up in 2-3 weeks with repeat US to evaluate progression of L hydro (13) Vitamin D deficiency: * Vit D low at 26.8 October 07, 2019 -- started on Vit D supplementation. PTH wnl (14) DVT prophylaxis: * Lovenox 40mg SQ daily * Of note --> patient was supposed to be on heparin 5000 units SQ BID x 4 weeks s/p IM nailing Dispo: monitor patient progress/labs off antibiotics --> possible discharge brittany rrow to [facility] with follow up labs/outpatient monitoring Admission and Anticipated Discharge Date Admission Date: October 18, 2019 Supervising Physician Co-Signing Physician Notes PA Supervision Note: I did not personally see or examine the patient today, but I verified all chaney points of BILLIE Odell's assessment and plan with the following exceptions/additions: I discussed her case with Hematology and Othopedics today. Has some sort of liver issue going on and large inflammatory response of unknown etiology. Ortho feels the pain in the LLE is not unexpected at this point in her recovery. Will hold abx fo rnow and continue to work up liver issue with CMV, EBV, and perhaps hold Lexapro in case of causing liver dysfunction Subjective Patient evaluated this morning. States she is feeling much better today. Has been able to get up to use restroom much more frequently with less pain but does admit to ankle pain with ambulation. States she would prefer not to have any further imaging at this time. Denies fevers, chills, chest pain, shortness of breath, abdominal pain, n/v/d or dysuria at this time. Will discontinue antibiotics after discussion with ortho and see if patient continues to improve off antibiotics. Review of Systems Review of Systems: All systems reviewed & are unremarkable except as noted in HPI & below Physical Exam Constitutional: WD/WN, vitals as above no acute distress Eyes: + anicteric sclerae and PERRL ENMT: external ear and nose normal, oropharynx normal Neck: trachea midline, no thyromegaly Respiratory: normal respiratory effort, lungs clear to auscultation Auscultation: + diminished lung sounds Cardiovascular: RRR, no murmur, no edema Rate/Rhythm: regular rate and regular rhythm Heart Sounds: + murmur (faint 1/6 systolic ) Extremities: normal capillary refill; no edema Gastrointestinal (Abdomen): normal bowel sounds, soft, nontender, no hepatosplenomegaly Musculoskeletal: 4/5 strength LLE Left leg shortened and externally rotated -- minimal pain with internal/external rotation medial ankle minimally tender to palpation able to dorsiflex/plantar flex today with decreased pain Neurologic: patellar DTR's 2+ bilat, sensation intact Psychiatric: A+Ox3, euthymic affect Lymphatic: no cervical or axillary lymphadenopathy Results & Data Results & Data ([facility]) Vital Signs (Past 12 Hours) Vital Signs Temp Pulse Resp BP Pulse Ox 10/22/19 15:32 37.2 C 90 16 127/63 98 10/22/19 07:14 36.8 C 85 16 130/67 95 PG Care Time/CCT Total # of Minutes Spent Total Time Spent with Patient: Total time spent is greater than 50% in coordination of care (as documented) at patient's floor/unit and/or counseling patient: Prolonged Care Time Prolonged Care Time: Yes Total Prolonged Care Time: 120 time spent speaking with multiple consultants -- hematology, orthopedics, ID and multiple visits to patients rooms/discussion/questions Coding Level of Care Code 32314 Subseq Hosp Care Lvl 3 (25 - SIGNIFICANT, SEPARATELY IDENTIFIABLE ) Diagnoses Abnormal LFTs R94.5 Left thigh pain M79.652 Ankle pain, left M25.572 Anemia D64.9 Status post-operative repair of hip fracture Z98.890; Z87.81 Hypertension I10 Hypertension type: essential hypertension Hyperlipidemia E78.5 Asthma J45.909 History of CVA with residual deficit I69.30 Anxiety F41.9 Hydronephrosis of right kidney N13.30 Hydronephrosis, left N13.30 Vitamin D deficiency E55.9 DVT prophylaxis Z29.9 Additional Codes Prolonged Care Time - Prolonged Care Time: Yes ([id number]) (1) Hypertension Hypertension type: essential hypertension Qualified Code(s): I10 - Essential (primary) hypertension
--- NOTE | 2019-10-22 17:21 | Orthopedic Progress Note ---
Date of Service October 22, 2019 Assessment & Plan (1) Post-operative pain: Overall she is improving. She is starting to ambulate more. She is only 2 weeks out from a hip fracture and oftentimes patients can take 2 weeks before they start ambulating on it. I do not see any signs of infection around her hip. Her sed rate, CRP, and white count are returning to baseline. Her ankle is improved today. I think is reasonable to discontinue her antibiotics and to see how she responds. We will continue to look at her liver function tests as well. Present on Admission?: Yes Subjective Marcie was seen and examined at bedside this morning. Overall she is improving. She has been walking to the bathroom and once into the hallways. She is still sore when she puts weight on her left hip but is improving. Her ankle pain is improving as well. Physical Exam Musculoskeletal: On physical examination of the left hip, the dressings are clean and dry and neetu removed. There is no erythema or signs of infection. There is no draining. Unable to do some limited range of motion of her hip without much pain. She has active dorsiflexion and plantarflexion of her left ankle. I will see any significant erythema or pain around her ankle. Results & Data ([facility]) Vital Signs (Past 12 Hours) Vital Signs Temp Pulse Resp BP Pulse Ox 10/22/19 15:32 37.2 C 90 16 127/63 98 10/22/19 07:14 36.8 C 85 16 130/67 95 PG Care Time/CCT Total # of Minutes Spent Total Time Spent with Patient: Total time spent is greater than 50% in co ordination of care (as documented) at patient's floor/unit and/or counseling patient: Coding Level of Care Code None Diagnoses Post-operative pain G89.18
[2019-10-22] MEDS: MELATONIN 3 MG TAB PO SCH (22:04)
[2019-10-22] MEDS: ENOXAPARIN INJ 40 MG/0.4 ML SYR SQ SCH (22:08)
[2019-10-23] MEDS: LORazepam 1 MG TAB PO PRN ×2 (00:34→23:48)
[2019-10-23] MEDS: VANCOMYCIN HCL 1,250 MG in SODIUM CHLORIDE 0.9% 250 ML IV SCH (05:10)
[2019-10-23 05:57] LABS: Basophils # (auto) 0.06 K/uL (0-0.2); Basophils % (auto) 0.9 %; Eosinophils # (auto) 0.27 K/uL (0-0.5); Eosinophils % (auto) 3.9 %; Hemoglobin 8.9 g/dL (12.0-16.0); Immature Granulocytes # (auto) 0.13 K/uL (0.00-0.02); Immature Granulocytes % (auto) 1.9 %; Lymphocytes # (auto) 1.96 K/uL (1.2-3.4); Lymphocytes % (auto) 28.6 %; Mean Corpuscular Hemoglobin 29.4 pg (25-34); Mean Corpuscular Hgb Conc 30.7 g/dL (32-36); Mean Corpuscular Volume 95.7 fL (80-100); Mean Platelet Volume 9.2 fL (7.4-10.4); Monocytes # (auto) 0.63 K/uL (0.11-0.59); Monocytes % (auto) 9.2 %; Neutrophils % (auto) 55.5 %; Platelet Count 880 K/uL (130-400); RDW Coefficient of Variation 14.8 % (11.5-14.5); RDW Standard Deviation 51.8 fL (36.4-46.3); Red Blood Count 3.03 M/uL (4.2-5.4); White Blood Count 6.85 K/uL (4.8-10.8)
[2019-10-23 06:23] LABS: Alanine Aminotransferase 312 U/L (12-78); Albumin Level 2.5 gm/dl (3.4-5.0); Aspartate Aminotransferase 127 U/L (15-37); BUN Creatinine Ratio 16.9 (10-20); Bilirubin Direct < 0.1 mg/dl (0-0.2); Blood Urea Nitrogen 11 mg/dl (7-18); Calcium 9.2 mg/dl (8.5-10.1); Carbon Dioxide 27 mmol/L (21-32); Chloride 106 mmol/L (98-107); Est GFR (African American) 103.3; Est GFR (Non-African American) 89.2; Glucose 90 mg/dl (70-99); Potassium 4.4 mmol/L (3.5-5.1); Sodium 138 mmol/L (136-145)
[2019-10-23 06:26] LABS: Alkaline Phosphatase 649 U/L (45-117); Bilirubin,Total 0.3 mg/dl (0.2-1); Total Protein 7.4 gm/dl (6.4-8.2)
[2019-10-23] MEDS: FLUTICASONE PROPIONATE NA SPR 16 GM BTL NAE SCH (08:41)
[2019-10-23] MEDS: POTASSIUM CHLORIDE 20 MEQ TABCR PO SCH ×2 (08:41→20:45)
[2019-10-23] MEDS: FLUTICASONE/VILANTEROL 200/25MCG 14 PUFFS/INHALER INH SCH (08:41)
[2019-10-23] MEDS: LOSARTAN POTASSIUM 50 MG TAB PO SCH (08:41)
[2019-10-23] MEDS: ASPIRIN 81 MG ECTAB PO SCH (08:41)
[2019-10-23] MEDS: ESCITALOPRAM OXALATE 10 MG TAB PO SCH (08:42)
[2019-10-23] MEDS: CHOLECALCIFEROL 1,000 UNITS 25 MCG TAB PO SCH (08:42)
--- NOTE | 2019-10-23 10:10 | Consultation Report ---
DATE OF CONSULTATION: 10/23/2019 HEMATOLOGY CONSULTATION REASON FOR CONSULTATION: Elevated platelet count. HISTORY OF PRESENT ILLNESS: The patient is a pleasant 74-year-old female with multiple comorbid issues, admitted to [facility] on 10/16/2019 with left upper thigh pain and abnormal liver function studies. The patient also has history of recent frontoparietal stroke with residual left lower extremity weakness and status post hip fracture repaired by intramedullary nail. Had presented to [facility] with sudden onset left thigh pain upon weightbearing. The patient admitted the pain gets worse with standing and moving her leg. She reported a 1010 and was subsequently transferred to [facility] for management. During hospitalization, her platelet count has been rising precipitously. The patient has no known active infection at present time; however, her liver transaminases continue to rise, thought to be attributable by statin lowering agent. Nonetheless clearly there is some sort of inflammatory or occult infection at the present time as platelet count generally does not rise in a log rhythmic fashion in case of essential thrombocythemia, which is a bone marrow disorder resulting in proliferation in platelets. Astutely the hospitalist also checked iron studies which reveal elevated ferritin, normal serum iron, but decreased transferrin suggestive of anemia of chronic disease. Again, based on the presentation and the rapidity of platelet elevation, I suspect this is more reactive thrombocytosis than a primary essential thrombocythemia. Platelet count today is over 800,000. PAST MEDICAL HISTORY: Significant for asthma, benign colonic polyp, closed hip fracture, cystocele, lumbar disk disease, history of CVA, hyperlipidemia, hypertension and osteopenia. PAST SURGICAL HISTORY: Status post intramedullary nail in 09/2019, status post colonoscopy, history of tooth extraction. MEDICATIONS: Prior to admission include losartan 25 mg p.o. daily, heparin 5,000 units subQ q. 12 hours, potassium chloride 20 mEq p.o. b.i.d., oxycodone 5 mg p.o. once daily, melatonin 3 mg p.o. at bedtime, lorazepam 0.5 to 1 mg p.o. at bedtime as needed, fluticasone propionate 2 sprays intranasally daily, escitalopram 10 mg p.o. daily, aspirin 81 mg p.o. daily, albuterol sulfate 1 puff p.o. inhaled q. 4 hours, acetaminophen 325 mg p.o. q.i.d., atorvastatin 40 mg p.o. daily, budesonide 2 puffs inhaled b.i.d. ALLERGIES: TO CELECOXIB. FAMILY HISTORY: Mother suffered from diabetes, hypertension, myocardial infarction. She also has a sister, suffers from diabetes. No history of cancers within first-degree relatives. SOCIAL HISTORY: The patient is retired. She is with grown children, nonsmoker. She does consume alcohol on social basis and negative for illegal substances. REVIEW OF SYSTEMS: As per HPI. PHYSICAL EXAMINATION: GENERAL: A very pleasant 74-year-old female, awake, alert and appropriate, in no acute distress. SKIN: Warm, dry, noncyanotic without petechia, rash or ecchymosis. HEAD: Atraumatic, normocephalic. EYES: PERRLA, EOMI. Sclerae nonicteric. No conjunctival injection. NOSE: Nares are patent without rhinorrhea or discharge. THROAT: Clear. MOUTH: Tongue is midline. Mucous membranes are moist. NECK: Supple without JVD or thyromegaly. LYMPH: No cervical, supraclavicular, axillary or inguinal palpable nodes. HEART: Regular rate and rhythm. No clicks, rubs, murmurs or gallops. LUNGS: Clear to auscultation bilaterally. ABDOMEN: Soft, nontender, nondistended, without palpable hepatosplenomegaly. EXTREMITIES: No clubbing, cyanosis or edema. MUSCULOSKELETAL: Strength is equal in all 4 quadrants. NEUROLOGICAL: She is awake, alert and oriented x3. Cranial nerves II-XII are intact. LABORATORY DATA: WBC count 6850, hemoglobin 8.9, platelet count 880,000. Sodium 138, potassium 4.4, chloride 106, carbon dioxide 27, creatinine 0.64, BUN 11. AST 127, ALT 312, alkaline phosphatase 649, albumin 2.5. IMPRESSION: 1. Reactive thrombocytosis. 2. Abnormal liver function studies. 3. Hypoalbuminemia. 4. Left thigh pain attributable to previous femur repair. 5. Anemia, etiology unclear. PLAN: I had the pleasure of visiting with the patient at bedside this morning. Clearly, her platelet count was normal on admission and has subsequently risen to over 800,000. Taking in to consider the velocity of rise, reactive thrombocytosis is much more likely than a myeloproliferative disorder. I suspect she will hit her ann in the next day or two and start to retreat towards normal. Suspect inflammation involving the left lower extremity and liver, which may be responsible for the current platelet count. Again, platelet count will normalize as her condition improves. Rule out occult infection otherwise. I would add daily aspirin if she has no procedures pending, 81 mg should be suffice to as a thrombus prophylaxis because of elevated platelets. I suspect she is on DVT prophylaxis, which is also appropriate. Thank you very much for allowing me to participate in her care. If you have any questions or concerns, feel free to contact me at any time. We will continue to follow her periodically and I would be happy to follow up with the patient as an outpatient as well. MAYRA
[2019-10-23] MEDS: OXYCODONE HCL IR 5 MG TAB (IMMEDIATE RELEASE) PO PRN ×2 (11:26→20:52)
--- NOTE | 2019-10-23 11:49 | Hospitalist Progress Note ---
Date of Service October 23, 2019 Assessment & Plan (1) Abnormal LFTs: * Of note, had previously been on atorvastatin 40mg daily but was recently increased to 80mg daily at [place] following recent stroke -- holding statin since admission. CK wnl * Mildly elevated since CVA but appeared to be worse on admission with AST/ALT 198/354 and alk phos 420 * US Liver unremarkable. CT A/P without noted abnormality. * Iron studies show decreased transferrin and increased Ferritin but iron was normal. Ferritin might be an acute phase reactant as platelets are also high . See above * CT Chest without significant abnormality * CTAbd with mild left hydro, improved from prior imaging. No obstructing stones , normal R kidney --> no abnormality noted on liver/spleen/GB * Spoke with rheumatology technical assistance consultant for concerns of a myositis given elevated aldolase, LDH, AST/ALT/Alk Phos, ESR, CRP and improvement of symptoms with 1x dose of prednisone. Given lack of elevated CK on admission or on repeat, highly unlikely --> would be more likely to be an acute toxic myositis if anything given the abrupt presentation but not really any new medications outside of flexeril/gabapentin (now discontinued) Possible that elevated aldolase level potentially secondary to liver injury * Spoke with ID at [facility] -- suggested tagged blood with bone scan but given recent fracture, would likely be inconclusive per ortho team GI consulted for markedly elevated LFTs despite holding statin -- appreciate assistance * [place], alpha 1 antitrypsin level, tissue transglutaminase with IgA pending * Possible that elevated LFTs related to possible reaction to general anesthesia that she received for her hip operation as they have been elevated prior to this admission for her IM hip nailing vs initiation and titration of lexapro 5mg on 09/19 and increased to 10mg daily on 09/22. No other new medications outside of increased statin following stroke in August. Will hold and continue to trend LFTs * Viral hepatitis panel negative * CMV, EBV added, pending Hematology consult pending -- appreciate assistance -- expects reactive thrombocytopenia and that this should trend back down over next day or two. In regards to ankle/hip/thigh pain -- IMPROVED * ESR and CRP both elevated at 61 and 13.7 on admission concerning for bacteremia also given other elevated acute phase reactants --> ferritin and platelets both elevated as well as LFTs. * Limited ECHO to assess valvular function --> does have mild to moderate MR with complex calcifications in mitral region (trace MR on ECHO in [place] August 2019) Inflammatory markers trending down --> ESR 43 (was 63), CRP 10.6 (was 13.7), WBC 6.8k * LFTs still elevated, but trending down -- AST 127, ALT 312/ Alk phos elevated at 649. Bili wnl Will add isoenzyme for alk phos to see if coming from liver vs bone. Will aslo add GGT. * Blood cultures without growth. Repeat pending now off of abx * Was going to order MRI pelvis/thigh/ankle, however patient would like to avoid further testing -- cancelled at this time. Would consider further imaging if patient pain increased/WBC elevated/fever/sx infectious etiology * Monitoring morning labs/patient progress off antibiotics as above * Orthopedics consulted -- no surgical intervention at this time. CT hip with anatomic alignment s/p L nailing. Continue PO pain medication. Patient only 2 weeks post-operative. * Continue PT/OT while inpatient -- to return to [facility] at discharge (2) Left thigh pain: See above (3) Ankle pain, left: * Patient no reported pain/erythema to medial aspect LEFT ankle today * Imaging negative for any acute fracture. Uric acid 3.5. Lyme negative. See above (4) Anemia: * H/h improved to 8.9/29.0 -- no s/sx overt bleeding. * WBC trending down, now 7.2k * Platelets remain elevated at 880 * Hemoccult blood negative * Iron studies completed and showed decreased transferrin and increased ferritin, but iron was normal. Ferritin might be an acute phase reactant as platelets are also high * Hematology consult as above * CBC in AM (5) Status post-operative repair of hip fracture: * Surgical incision C/D/I -- had L hip fx with IM nailing 10/[address] Adam * Ortho on consult as above (6) Hypertension: * Unclear why losartan cut to 25mg on discharge last admission as never particularly hypotensive and was increased back to 75mg PO on 10/15 * BP had dropped to 102/57 on 10/17 --> cut back losartan to 50mg daily * 116/60 evening of 10/22 with patient feeling unsteady -- will continue losartan 50mg daily for now and monitor BP closely --- currently 135/72 * Continue to monitor (7) Hyperlipidemia: * Holding atorvastatin while LFTs elevated (8) Asthma: * Albuterol PRN (9) History of CVA with residual deficit: * On 09/09/19 with residual left leg weakness and mild foot drop * Continue ASA * Atorvastatin on hold as above for LFTs (10) Anxiety: * HOLDING lexapro 10mg PO daily. STarted 5mg PO 09/19 at [facility] and increased to 10mg on 09/22. Possibly causing increased LFTs as above as no other new medications * Lorazepam PRN (11) Hydronephrosis of right kidney: * Picked up incidentally on US. UA normal without blood. No Hx renal stones. * Cr around baseline * Urology consult CT as above --> will need follow up US outpatient next 2 weeks (12) Hydronephrosis, left: * CTAP (follow up from US Liver d/t elevated liver enzymes which showed R hydro) --> R hydro resolution, L nephrolithiasis with mild hydro, abrupt change 5cm proximal to UVJ which could have been a recently passed stone vs. radiolucent stone vs stricture/lesion * Urology consulted -- rec outpatient follow up to evaluate progression of L hydro (13) Vitamin D deficiency: * Vit D low at 26.8 October 07, 2019 -- started on Vit D supplementation. PTH wnl (14) Thrombocytosis: Reactive, unclear the source of inflammation or infection, but work-up noted as above Hematology recommends aspirin 81 mg daily which she was already on (15) DVT prophylaxis: * Lovenox 40mg SQ daily * Of note --> patient was supposed to be on heparin 5000 units SQ BID x 4 weeks s/p IM nailing Dispo: monitor patient progress/labs off antibiotics --> likely inpatient until Friday/Friday pending labs Admission and Anticipated Discharge Date Admission Date: October 18, 2019 Supervising Physician Co-Signing Physician Notes PA Supervision Note: I did not personally see or examine the patient today, but I verified all chaney points of BILLIE Odell's assessment and plan with the following exceptions/additions: none Subjective Patient evaluated this morning. Feeling much better. Episode of unsteadiness last night and used the bedside commode but states she has been up to bathroom several times today without as much difficulty. Decreased pain today but still present to lateral thigh. Discussed holding her lexapro as she had just started this medication at the beginning of September. She states "they walked in one day and I was feeling blue, and they just started it". She is ok with holding this medication and discussed that if needed we may be able to give additional dose of ativan for any increased anxiety. Discussed decrease in some of her LFTs but that platelets still elevated and that hematology believes this will trend back down over the next day or two. Patient smiling, no further questions at this time. Review of Systems Review of Systems: All systems reviewed & are unremarkable except as noted in HPI & below Physical Exam Physical Exam: Constitutional WD/WN, vitals as above no acute distress Eyes + anicteric sclerae and PERRL ENMT external ear and nose normal, oropharynx normal Neck trachea midline, no thyromegaly Respiratory normal respiratory effort, lungs clear to auscultation Cardiovascular Rate/Rhythm: regular rate and regular rhythm Heart Sounds: + murmur (1/6 systolic ) Extremities: normal capillary refill; no edema Gastrointestinal (Abdomen) normal bowel sounds, soft, nontender, no hepatosplenomegaly Musculoskeletal 4/5 strength LLE Left leg externally rotated secondary to positioning. minimall painful with ROM L hip medial ankle non-tender to palpation today. no erythema noted Neurologic patellar DTR's 2+ bilat, sensation intact Psychiatric A+Ox3, euthymic affect Lymphatic no cervical or axillary lymphadenopathy Results & Data Results & Data ([facility]) Vital Signs (Past 12 Hours) Vital Signs Temp Pulse Resp BP Pulse Ox 10/23/19 07:36 36.9 C 81 20 145/87 H 100 Laboratory Results 10/23/19 10/23/19 10/23/19 Range/Units 09:41 05:17 05:17 WBC 6.85 (4.8-10.8) K/uL RBC 3.03 L (4.2-5.4) M/uL Hgb 8.9 L (12.0-16.0) g/dL Hct 29.0 L (37-47) % MCV 95.7 (80-100) fL MCH 29.4 (25-34) pg MCHC 30.7 L (32-36) g/dL RDW Std Deviation 51.8 H (36.4-46.3) fL RDW Coeff of Cuco 14.8 H (11.5-14.5) % Plt Count 880 H (130-400) K/uL MPV 9.2 (7.4-10.4) fL Immature Gran % (Auto) 1.9 % Neut % (Auto) 55.5 % Lymph % (Auto) 28.6 % [place] % (Auto) 9.2 % Eos % (Auto) 3.9 % Baso % (Auto) 0.9 % Neut # (Auto) 3.80 (1.4-6.5) K/uL Lymph # (Auto) 1.96 (1.2-3.4) K/uL [place] # (Auto) 0.63 H (0.11-0.59) K/uL Eos # (Auto) 0.27 (0-0.5) K/uL Baso # (Auto) 0.06 (0-0.2) K/uL Immature Gran # (Auto) 0.13 H (0.00-0.02) K/uL Sodium 138 (136-145) mmol/L Potassium 4.4 (3.5-5.1) mmol/L Chloride 106 (98-107) mmol/L Carbon Dioxide 27 (21-32) mmol/L Anion Gap 5.0 (3-11) BUN 11 (7-18) mg/dl Creatinine 0.64 (0.6-1.2) mg/dl Est Cr Clr Drug Dosing 73.0 ml/min Est GFR ( Amer) 103.3 Est GFR (Non-Af Amer) 89.2 BUN/Creatinine Ratio 16.9 (10-20) Glucose 90 (70-99) mg/dl Calcium 9.2 (8.5-10.1) mg/dl Total Bilirubin 0.3 (0.2-1) mg/dl Direct Bilirubin < 0.1 (0-0.2) mg/dl GGT Pending AST 127 H (15-37) U/L ALT 312 H (12-78) U/L Alkaline Phosphatase 649 H Alk Phos Iso-Intestine Alk Phos Iso-Bone Alk Phos Iso-Liver Alk Phos Iso-Macro Hepat Alk Phos Iso-Placenta ALP Isoenzymes Interp Total Protein 7.4 (6.4-8.2) gm/dl Albumin 2.5 L (3.4-5.0) gm/dl CMV IgM Ab CMV IgG Ab/TORCH EBV Capsid Ag IgG Ab EBV Capsid Ag IgM Ab EBV Nuclear Antigen Ab EBV Antibody Interp 10/23/19 10/23/19 Range/Units 05:17 05:17 WBC (4.8-10.8) K/uL RBC (4.2-5.4) M/uL Hgb (12.0-16.0) g/dL Hct (37-47) % MCV (80-100) fL MCH (25-34) pg MCHC (32-36) g/dL RDW Std Deviation (36.4-46.3) fL RDW Coeff of Cuco (11.5-14.5) % Plt Count (130-400) K/uL MPV (7.4-10.4) fL Immature Gran % (Auto) % Neut % (Auto) % Lymph % (Auto) % [place] % (Auto) % Eos % (Auto) % Baso % (Auto) % Neut # (Auto) (1.4-6.5) K/uL Lymph # (Auto) (1.2-3.4) K/uL [place] # (Auto) (0.11-0.59) K/uL Eos # (Auto) (0-0.5) K/uL Baso # (Auto) (0-0.2) K/uL Immature Gran # (Auto) (0.00-0.02) K/uL Sodium (136-145) mmol/L Potassium (3.5-5.1) mmol/L Chloride (98-107) mmol/L Carbon Dioxide (21-32) mmol/L Anion Gap (3-11) BUN (7-18) mg/dl Creatinine (0.6-1.2) mg/dl Est Cr Clr Drug Dosing ml/min Est GFR ( Amer) Est GFR (Non-Af Amer) BUN/Creatinine Ratio (10-20) Glucose (70-99) mg/dl Calcium (8.5-10.1) mg/dl Total Bilirubin (0.2-1) mg/dl Direct Bilirubin (0-0.2) mg/dl GGT AST (15-37) U/L ALT (12-78) U/L Alkaline Phosphatase Pending Alk Phos Iso-Intestine Pending Alk Phos Iso-Bone Pending Alk Phos Iso-Liver Pending Alk Phos Iso-Macro Hepat Pending Alk Phos Iso-Placenta Pending ALP Isoenzymes Interp Pending Total Protein (6.4-8.2) gm/dl Albumin (3.4-5.0) gm/dl CMV IgM Ab Pending CMV IgG Ab/TORCH Pending EBV Capsid Ag IgG Ab Pending EBV Capsid Ag IgM Ab Pending EBV Nuclear Antigen Ab Pending EBV Antibody Interp Pending PG Care Time/CCT Total # of Minutes Spent Total Time Spent with Patient: Total time spent is greater than 50% in coordination of care (as documented) at patient's floor/unit and/or counseling patient: Coding Level of Care Code 29643 Subseq Hosp Care Lvl 3 Diagnoses Abnormal LFTs R94.5 Left thigh pain M79.652 Ankle pain, left M25.572 Anemia D64.9 Status post-operative repair of hip fracture Z98.890; Z87.81 Hypertension I10 Hypertension type: essential hypertension Hyperlipidemia E78.5 Asthma J45.909 History of CVA with residual deficit I69.30 Anxiety F41.9 Hydronephrosis of right kidney N13.30 Hydronephrosis, left N13.30 Vitamin D deficiency E55.9 Thrombocytosis D47.3 DVT prophylaxis Z29.9 (1) Hypertension Hypertension type: essential hypertension Qualified Code(s): I10 - Essential (primary) hypertension
[2019-10-23] MEDS: ENOXAPARIN INJ 40 MG/0.4 ML SYR SQ SCH (20:46)
[2019-10-23] MEDS: MELATONIN 3 MG TAB PO SCH (20:46)
[2019-10-24 05:53] LABS: Basophils # (auto) 0.04 K/uL (0-0.2); Basophils % (auto) 0.6 %; Eosinophils # (auto) 0.25 K/uL (0-0.5); Eosinophils % (auto) 3.8 %; Hematocrit (blood only) 26.7 % (37-47); Hemoglobin 8.5 g/dL (12.0-16.0); Immature Granulocytes # (auto) 0.17 K/uL (0.00-0.02); Immature Granulocytes % (auto) 2.6 %; Lymphocytes # (auto) 2.26 K/uL (1.2-3.4); Lymphocytes % (auto) 34.3 %; Mean Corpuscular Hemoglobin 29.7 pg (25-34); Mean Corpuscular Hgb Conc 31.8 g/dL (32-36); Mean Corpuscular Volume 93.4 fL (80-100); Mean Platelet Volume 8.4 fL (7.4-10.4); Monocytes # (auto) 0.74 K/uL (0.11-0.59); Monocytes % (auto) 11.2 %; Neutrophils # (auto) 3.12 K/uL (1.4-6.5); Neutrophils % (auto) 47.5 %; Platelet Count 796 K/uL (130-400); RDW Coefficient of Variation 14.8 % (11.5-14.5); RDW Standard Deviation 50.4 fL (36.4-46.3); Red Blood Count 2.86 M/uL (4.2-5.4); White Blood Count 6.58 K/uL (4.8-10.8)
[2019-10-24 06:24] LABS: Alanine Aminotransferase 216 U/L (12-78); Albumin Level 2.5 gm/dl (3.4-5.0); Aspartate Aminotransferase 64 U/L (15-37); Bilirubin Direct < 0.1 mg/dl (0-0.2); Blood Urea Nitrogen 11 mg/dl (7-18); Calcium 9.2 mg/dl (8.5-10.1); Carbon Dioxide 29 mmol/L (21-32); Chloride 105 mmol/L (98-107); Est GFR (African American) 103.3; Est GFR (Non-African American) 89.2; Glucose 86 mg/dl (70-99); Sodium 137 mmol/L (136-145)
[2019-10-24 06:26] LABS: Alkaline Phosphatase 578 U/L (45-117); Bilirubin,Total 0.4 mg/dl (0.2-1); Total Protein 7.1 gm/dl (6.4-8.2)
[2019-10-24] MEDS: LOSARTAN POTASSIUM 50 MG TAB PO SCH (08:38)
[2019-10-24] MEDS: POTASSIUM CHLORIDE 20 MEQ TABCR PO SCH ×2 (08:38→20:59)
[2019-10-24] MEDS: CHOLECALCIFEROL 1,000 UNITS 25 MCG TAB PO SCH (08:38)
[2019-10-24] MEDS: ASPIRIN 81 MG ECTAB PO SCH (08:39)
[2019-10-24] MEDS: FLUTICASONE/VILANTEROL 200/25MCG 14 PUFFS/INHALER INH SCH (08:39)
[2019-10-24] MEDS: FLUTICASONE PROPIONATE NA SPR 16 GM BTL NAE SCH (08:39)
[2019-10-24] MEDS: OXYCODONE HCL IR 5 MG TAB (IMMEDIATE RELEASE) PO PRN ×2 (12:27→19:52)
--- NOTE | 2019-10-24 14:43 | Hospitalist Progress Note ---
Date of Service October 24, 2019 Assessment & Plan (1) Abnormal LFTs: * Of note, had previously been on atorvastatin 40mg daily but was recently increased to 80mg daily at [place] following recent stroke -- holding statin since admission. CK wnl * Mildly elevated since CVA but appeared to be worse on admission with AST/ALT 198/354 and alk phos 420 * US Liver unremarkable. CT A/P without noted abnormality. Iron studies show decreased transferrin and increased Ferritin but iron was normal. Ferritin might be an acute phase reactant as platelets are also high . See above * CT Chest without significant abnormality * CT Abd with mild left hydro, improved from prior imaging. No obstructing stones, normal R kidney --> no abnormality noted on liver/spleen/GB * Spoke with ID at [facility] -- suggested tagged blood with bone scan but given recent fracture, would likely be inconclusive per ortho team * GI consulted for markedly elevated LFTs despite holding statin -- appreciate assistance * [place], alpha 1 antitrypsin level pending. IgA 338 * Spoke with rheumatology electrical construction project manager for concerns of a myositis given elevated aldolase, LDH, AST/ALT/Alk Phos, ESR, CRP and improvement of symptoms with 1x dose of prednisone. Given lack of elevated CK on admission or on repeat, highly unlikely --> would be more likely to be an acute toxic myositis if anything given the abrupt presentation but not really any new medications outside of flexeril/gabapentin (now discontinued) Possible that elevated aldolase level potentially secondary to liver injury. * GGT elevated on 10/22 at 379 -- Possible that elevated LFTs related to possible initiation and titration of lexapro 5mg on 09/19 and increased to 10mg daily on 09/22. No other new medications outside of increased statin following stroke in August. Alk phos isoenzymes pending. Discontinue lexapro LFTs IMPROVED TODAY, AST 64, ALT 216, Alk phos 578 (Had been elevated as high as AST 510, [id number], Alk phos 649) -- continue to trend * CMV, EBV pending * Viral hepatitis panel negative Hematology consult pending -- appreciate assistance -- expects reactive thrombocytopenia and that this should trend back down over next day or two -- platelets trending down starting on 10/23 at 796 from 880 Will order CRP, ESR, CBC, BMP, LFTs in AM --> if improving and blood cultures without growth, could consider discharge and having labs repeated at [facility] (2) Left thigh pain: In regards to ankle/hip/thigh pain -- IMPROVED. CK wnl x2. * ESR and CRP both elevated at 61 and 13.7 on admission concerning for bacteremia also given other elevated acute phase reactants ferritin and plts (trending down, ESR 43, CRP 10.6) * Limited ECHO to assess valvular function --> does have mild to moderate MR with complex calcifications in mitral region (trace MR on ECHO in [place] August 2019) Inflammatory markers trending down --> ESR 43 (was 63), CRP 10.6 (was 13.7), WBC 6.5k --> trend in AM * LFTs trending down, see above. * Initial BCx negative, final. Repeat NGTD * Orthopedics consulted -- no surgical intervention at this time. CT hip with anatomic alignment s/p L nailing. Continue PO pain medication. Patient only 2 weeks post-operative. * Continue PT/OT while inpatient -- to return to [facility] at discharge (3) Ankle pain, left: * Patient no reported pain/erythema to medial aspect LEFT ankle today * Imaging negative for any acute fracture. Uric acid 3.5. Lyme negative. See above (4) Anemia: * H/h stable 8.5/26.7 -- no s/sx overt bleeding. * WBC, platelets trending down - see above * Hemoccult blood negative * Iron studies completed and showed decreased transferrin and increased ferritin, but iron was normal. Ferritin might be an acute phase reactant as platelets are also high * Hematology consult as above * CBC in AM (5) Status post-operative repair of hip fracture: * Surgical incision C/D/I -- had L hip fx with IM nailing 10/[address] Adam * Ortho on consult as above (6) Hypertension: * Unclear why losartan cut to 25mg on discharge last admission as never particularly hypotensive and was increased back to 75mg PO on 10/15 * BP had dropped to 102/57 on 10/17 --> cut back losartan to 50mg daily * BP well controlled on 50mg daily, 133/63 * Would continue at 50mg daily at discharge * Continue to monitor (7) Hyperlipidemia: * Holding atorvastatin while LFTs elevated (8) Asthma: * Albuterol PRN (9) History of CVA with residual deficit: * On 09/09/19 with residual left leg weakness and mild foot drop * Continue ASA * Atorvastatin on hold as above for LFTs (10) Anxiety: * HOLDING lexapro 10mg PO daily. Started 5mg PO 09/19 at [facility] and increased to 10mg on 09/22. Possibly causing increased LFTs as above as no other new medications --> discontinued * Lorazepam PRN (11) Hydronephrosis of right kidney: * Picked up incidentally on US. UA normal without blood. No Hx renal stones. * Cr around baseline * Urology consult CT as above --> will need follow up US outpatient next 2 weeks (12) Hydronephrosis, left: * CTAP (follow up from US Liver d/t elevated liver enzymes which showed R hydro) --> R hydro resolution, L nephrolithiasis with mild hydro, abrupt change 5cm proximal to UVJ which could have been a recently passed stone vs. radiolucent stone vs stricture/lesion * Urology consulted -- rec outpatient follow up to evaluate progression of L hydro (13) Vitamin D deficiency: * Vit D low at 26.8 October 07, 2019 -- started on Vit D supplementation. PTH wnl (14) Thrombocytosis: * Reactive, unclear the source of inflammation or infection, but work-up noted as above * Hematology recommends aspirin 81 mg daily which she was already on * Platelets trending down starting 10/23 (15) DVT prophylaxis: * Lovenox 40mg SQ daily * Of note --> patient was supposed to be on heparin 5000 units SQ BID x 4 weeks s/p IM nailing (done on 10/06) Dispo: continue to trend AM labs, possible discharge back to [facility] friday Admission and Anticipated Discharge Date Admission Date: October 18, 2019 Supervising Physician Co-Signing Physician Notes BILLIE Supervision Note: I did not personally see or examine the patient today, but I verified all chaney points of BILLIE Odell's assessment and plan with the following exceptions/additions: none Subjective Patient evaluated this morning. Feeling much better. Pain primarily to top of her thigh, and still worse with ambulation however she endorses less pain with ambulation in compared to days past. Utilizing less pain medication today compared to days in the past. Spirits much improved with news of improvement on today's lab values. Eating/drinking without difficulty. Voiding and toileting with assistance x1. Discussed continuing to hold her lexapro as this may have been causing increased LFTs. Patient denies fevers, chills, chest pain, shortness of breath, abdominal pain, dysuria at this time. Had a nice visit with her last night. Hopeful for discharge back to [facility] to resume rehab tomorrow if pain still controlled, labs continue to improve and cultures without growth. Review of Systems Review of Systems: All systems reviewed & are unremarkable except as noted in HPI & below Physical Exam Physical Exam: Constitutional WD/WN, vitals as above no acute distress Eyes + anicteric sclerae and PERRL ENMT external ear and nose normal, oropharynx normal Neck trachea midline, no thyromegaly Respiratory normal respiratory effort, lungs clear to auscultation Cardiovascular Rate/Rhythm: regular rate and regular rhythm Heart Sounds: S1, S2. 1/6 systolic murmur, no rubs/gallops Extremities: normal capillary refill; no edema Gastrointestinal (Abdomen) normal bowel sounds, soft, nontender, no hepatosplenomegaly Musculoskeletal 4/5 strength LLE Left leg externally rotated secondary to positioning. minimally tender to palpation lateral/anterior thigh medial ankle non-tender to palpation. no erythema noted Neurologic patellar DTR's 2+ bilat, sensation intact Psychiatric A+Ox3, euthymic affect Lymphatic no cervical or axillary lymphadenopathy Results & Data Results & Data ([facility]) Vital Signs (Past 12 Hours) Vital Signs Temp Pulse Resp BP Pulse Ox 10/24/19 07:20 36.9 C 81 18 153/73 H 96 Laboratory Results 10/24/19 10/24/19 10/23/19 Range/Units 05:38 05:38 09:41 WBC 6.58 (4.8-10.8) K/uL RBC 2.86 L (4.2-5.4) M/uL Hgb 8.5 L (12.0-16.0) g/dL Hct 26.7 L (37-47) % MCV 93.4 (80-100) fL MCH 29.7 (25-34) pg MCHC 31.8 L (32-36) g/dL RDW Std Deviation 50.4 H (36.4-46.3) fL RDW Coeff of Cuco 14.8 H (11.5-14.5) % Plt Count 796 H (130-400) K/uL MPV 8.4 (7.4-10.4) fL Immature Gran % (Auto) 2.6 % Neut % (Auto) 47.5 % Lymph % (Auto) 34.3 % [place] % (Auto) 11.2 % Eos % (Auto) 3.8 % Baso % (Auto) 0.6 % Neut # (Auto) 3.12 (1.4-6.5) K/uL Lymph # (Auto) 2.26 (1.2-3.4) K/uL [place] # (Auto) 0.74 H (0.11-0.59) K/uL Eos # (Auto) 0.25 (0-0.5) K/uL Baso # (Auto) 0.04 (0-0.2) K/uL Immature Gran # (Auto) 0.17 H (0.00-0.02) K/uL Sodium 137 (136-145) mmol/L Potassium 4.0 (3.5-5.1) mmol/L Chloride 105 (98-107) mmol/L Carbon Dioxide 29 (21-32) mmol/L Anion Gap 3.0 (3-11) BUN 11 (7-18) mg/dl Creatinine 0.64 (0.6-1.2) mg/dl Est Cr Clr Drug Dosing 73.0 ml/min Est GFR ( Amer) 103.3 Est GFR (Non-Af Amer) 89.2 BUN/Creatinine Ratio 17.0 (10-20) Glucose 86 (70-99) mg/dl Calcium 9.2 (8.5-10.1) mg/dl Total Bilirubin 0.4 (0.2-1) mg/dl Direct Bilirubin < 0.1 (0-0.2) mg/dl GGT 379 H (3-65) U/L AST 64 H (15-37) U/L ALT 216 H (12-78) U/L Alkaline Phosphatase 578 H (45-117) U/L Total Protein 7.1 (6.4-8.2) gm/dl Albumin 2.5 L (3.4-5.0) gm/dl PG Care Time/CCT Total # of Minutes Spent Total Time Spent with Patient: Total time spent is greater than 50% in coordination of care (as documented) at patient's floor/unit and/or counseling patient: Coding Level of Care Code 72912 Subseq Hosp Care Lvl 3 Diagnoses Abnormal LFTs R94.5 Left thigh pain M79.652 Ankle pain, left M25.572 Anemia D64.9 Status post-operative repair of hip fracture Z98.890; Z87.81 Hypertension I10 Hypertension type: essential hypertension Hyperlipidemia E78.5 Asthma J45.909 History of CVA with residual deficit I69.30 Anxiety F41.9 Hydronephrosis of right kidney N13.30 Hydronephrosis, left N13.30 Vitamin D deficiency E55.9 Thrombocytosis D47.3 DVT prophylaxis Z29.9 (1) Hypertension Hypertension type: essential hypertension Qualified Code(s): I10 - Essential (primary) hypertension
[2019-10-24] MEDS: MELATONIN 3 MG TAB PO SCH (20:34)
[2019-10-24] MEDS: ENOXAPARIN INJ 40 MG/0.4 ML SYR SQ SCH (20:58)
[2019-10-24] MEDS: LORazepam 1 MG TAB PO PRN (23:56)
[2019-10-25 05:59] LABS: Basophils # (auto) 0.02 K/uL (0-0.2); Basophils % (auto) 0.3 %; Eosinophils # (auto) 0.25 K/uL (0-0.5); Eosinophils % (auto) 3.7 %; Hematocrit (blood only) 27.6 % (37-47); Hemoglobin 8.8 g/dL (12.0-16.0); Immature Granulocytes # (auto) 0.21 K/uL (0.00-0.02); Immature Granulocytes % (auto) 3.1 %; Lymphocytes # (auto) 1.64 K/uL (1.2-3.4); Lymphocytes % (auto) 24.5 %; Mean Corpuscular Hemoglobin 29.9 pg (25-34); Mean Corpuscular Hgb Conc 31.9 g/dL (32-36); Mean Corpuscular Volume 93.9 fL (80-100); Mean Platelet Volume 8.6 fL (7.4-10.4); Monocytes # (auto) 0.78 K/uL (0.11-0.59); Monocytes % (auto) 11.6 %; Neutrophils % (auto) 56.8 %; Platelet Count 809 K/uL (130-400); RDW Coefficient of Variation 14.9 % (11.5-14.5); RDW Standard Deviation 50.9 fL (36.4-46.3); Red Blood Count 2.94 M/uL (4.2-5.4)
[2019-10-25 06:38] LABS: Alanine Aminotransferase 160 U/L (12-78); Albumin Level 2.5 gm/dl (3.4-5.0); Aspartate Aminotransferase 42 U/L (15-37); BUN Creatinine Ratio 20.5 (10-20); Bilirubin Direct < 0.1 mg/dl (0-0.2); Blood Urea Nitrogen 13 mg/dl (7-18); Carbon Dioxide 29 mmol/L (21-32); Chloride 104 mmol/L (98-107); Creatinine Clr Calc Pharmacy 74.1 ml/min; Est GFR (African American) 103.9; Est GFR (Non-African American) 89.6; Glucose 97 mg/dl (70-99); Potassium 4.3 mmol/L (3.5-5.1); Sodium 138 mmol/L (136-145)
[2019-10-25 06:41] LABS: Alkaline Phosphatase 495 U/L (45-117); Bilirubin,Total 0.2 mg/dl (0.2-1); C Reactive Protein 2.59 mg/dl (0-0.29)
[2019-10-25] MEDS: CHOLECALCIFEROL 1,000 UNITS 25 MCG TAB PO SCH (08:55)
[2019-10-25] MEDS: FLUTICASONE/VILANTEROL 200/25MCG 14 PUFFS/INHALER INH SCH (08:55)
[2019-10-25] MEDS: FLUTICASONE PROPIONATE NA SPR 16 GM BTL NAE SCH (08:55)
[2019-10-25] MEDS: POTASSIUM CHLORIDE 20 MEQ TABCR PO SCH ×2 (08:55→20:24)
[2019-10-25] MEDS: ASPIRIN 81 MG ECTAB PO SCH (08:56)
[2019-10-25] MEDS: LOSARTAN POTASSIUM 50 MG TAB PO SCH (08:56)
[2019-10-25] MEDS: OXYCODONE HCL IR 5 MG TAB (IMMEDIATE RELEASE) PO PRN ×2 (09:50→19:11)
[2019-10-25 14:29] LABS: EBV Virus Capsid Ag IgG Ab >750.00 U/mL
[2019-10-25 14:39] LABS: Alpha 1 Antitrypsin >300 mg/dL (83-199); Anti Nuclear Antibody Screen NEGATIVE (NEGATIVE); Transglutaminase, Tissue IgA 2 U/mL
--- NOTE | 2019-10-25 14:48 | Progress Notes ---
DATE: 10/25/2019 SUBJECTIVE: The patient remains asymptomatic and is eating well. Her imaging studies of her liver are normal. Her lab tests are trending down including her ALT, AST and alk phos. Alk phos fractionation is pending. Her CMV, hepatitis A, B and C all negative. Tissue transglutaminase, antinuclear antibody and alpha-1 antitrypsin are still pending. PHYSICAL EXAMINATION: GENERAL: The patient appears in no acute distress. VITAL SIGNS: Blood pressure is 120/60, pulse 82, temperature is 36.7. IMPRESSION AND PLAN: The patient's liver tests are improving. It is possible that these abnormalities may be medication related, specifically either Lexapro or atorvastatin. Both these medications have been discontinued. At this point, we will continue to trend her laboratory tests and await the other blood test results.
[2019-10-25] MEDS: MELATONIN 3 MG TAB PO SCH (15:34)
--- NOTE | 2019-10-25 17:18 | Hospitalist Progress Note ---
Date of Service October 25, 2019 Assessment & Plan (1) Abnormal LFTs: * Of note, had previously been on atorvastatin 40mg daily but was recently increased to 80mg daily at [place] following recent stroke -- holding statin since admission. CK wnl * Mildly elevated since CVA but appeared to be worse on admission with AST/ALT 198/354 and alk phos 420 * US Liver unremarkable. CT A/P without noted abnormality. Iron studies show decreased transferrin and increased Ferritin but iron was normal. Ferritin might be an acute phase reactant as platelets are also high . See above * CT Chest without significant abnormality * CT Abd with mild left hydro, improved from prior imaging. No obstructing stones, normal R kidney --> no abnormality noted on liver/spleen/GB * Spoke with ID at [facility] -- suggested tagged blood with bone scan but given recent fracture, would likely be inconclusive per ortho team * GI consulted for markedly elevated LFTs despite holding statin -- appreciate assistance * TRENTON, alpha 1 antitrypsin level pending. IgA 338 * Spoke with rheumatology communication studies professor for concerns of a myositis given elevated aldolase, LDH, AST/ALT/Alk Phos, ESR, CRP and improvement of symptoms with 1x dose of prednisone. Given lack of elevated CK on admission or on repeat, highly unlikely --> would be more likely to be an acute toxic myositis if anything given the abrupt presentation but not really any new medications outside of flexeril/gabapentin (now discontinued) Possible that elevated aldolase level potentially secondary to liver injury. * GGT elevated on 10/22 at 379 -- Possible that elevated LFTs related to possible initiation and titration of lexapro 5mg on 09/19 and increased to 10mg daily on 09/22. No other new medications outside of increased statin following stroke in August. Alk phos isoenzymes pending. Discontinue lexapro LFTs IMPROVED on 10/23 and 10/24, -- continue to trend one more day inpatient, likely d/c to rehab tomorrow * CMV, EBV pending * Viral hepatitis panel negative Hematology consult pending -- appreciate assistance -- expects reactive thrombocytosis and that this should trend back down over next day or two -- platelets up slightly today CRP down but ESR up slightly, AST, ALT and alk phose going down today (2) Left thigh pain: In regards to ankle/hip/thigh pain -- IMPROVED. CK wnl x2. * ESR and CRP both elevated at 61 and 13.7 on admission concerning for bacteremia also given other elevated acute phase reactants ferritin and plts (trending down, ESR 43, CRP 10.6) * Limited ECHO to assess valvular function --> does have mild to moderate MR with complex calcifications in mitral region (trace MR on ECHO in [place] August 2019) Inflammatory markers trending down --> CRP 2 and WBC normal, but ESR up slightly * LFTs trending down, see above. * Initial BCx negative, final. Repeat NGTD * Orthopedics consulted -- no surgical intervention at this time. CT hip with anatomic alignment s/p L nailing. Continue PO pain medication. Patient only 2 weeks post-operative. * Continue PT/OT while inpatient -- to return to [facility] at discharge, likely tomorrow (3) Ankle pain, left: * Patient no reported pain/erythema to medial aspect LEFT ankle 10/23 * Imaging negative for any acute fracture. Uric acid 3.5. Lyme negative. See above (4) Anemia: * Hb stable 8.8 * WBC normal, platelets going up slightly * Hemoccult blood negative * Iron studies completed and showed decreased transferrin and increased ferritin, but iron was normal. Ferritin might be an acute phase reactant as platelets are also high * Hematology consult as above * CBC in AM (5) Status post-operative repair of hip fracture: * Surgical incision C/D/I -- had L hip fx with IM nailing 10/[address] Adam * Ortho on consult as above (6) Hypertension: * Unclear why losartan cut to 25mg on discharge last admission as never particularly hypotensive and was increased back to 75mg PO on 10/15 * BP had dropped to 102/57 on 10/17 --> cut back losartan to 50mg daily * BP well controlled on 50mg daily * Would continue at 50mg daily at discharge * Continue to monitor (7) Hyperlipidemia: * Holding atorvastatin while LFTs elevated (8) Asthma: * Albuterol PRN (9) History of CVA with residual deficit: * On 09/09/19 with residual left leg weakness and mild foot drop * Continue ASA * Atorvastatin on hold as above for LFTs (10) Anxiety: * HOLDING lexapro 10mg PO daily. Started 5mg PO 09/19 at [facility] and increased to 10mg on 09/22. Possibly causing increased LFTs as above as no other new medications --> discontinued * Lorazepam PRN (11) Hydronephrosis of right kidney: * Picked up incidentally on US. UA normal without blood. No Hx renal stones. * Cr around baseline * Urology consult CT as above --> will need follow up US outpatient next 2 weeks (12) Hydronephrosis, left: * CTAP (follow up from US Liver d/t elevated liver enzymes which showed R hydro) --> R hydro resolution, L nephrolithiasis with mild hydro, abrupt change 5cm proximal to UVJ which could have been a recently passed stone vs. radiolucent stone vs stricture/lesion * Urology consulted -- rec outpatient follow up to evaluate progression of L hydro (13) Vitamin D deficiency: * Vit D low at 26.8 October 07, 2019 -- started on Vit D supplementation. PTH wnl (14) Thrombocytosis: * Reactive, unclear the source of inflammation or infection, but work-up noted as above * Hematology recommends aspirin 81 mg daily which she was already on * Platelets trending up slightly today, repeat tomorrow (15) DVT prophylaxis: * Lovenox 40mg SQ daily * Of note --> patient was supposed to be on heparin 5000 units SQ BID x 4 weeks s/p IM nailing (done on 10/06) Dispo: continue to trend AM labs, plan to return to [facility] tomorrow Admission and Anticipated Discharge Date Admission Date: October 18, 2019 Subjective patient doing well, no real complaints she is anxious to get back to [facility] to continue rehab reviewed chart reviewed labs, alk phos, AST, ALT and bili all coming down CRP down to 2 ESR and platelets going up slightly discussed with Dr. Fournier Review of Systems Review of Systems: All systems reviewed & are unremarkable except as noted in HPI & below Constitutional: + weakness; no fever and no fatigue Respiratory: no cough and no dyspnea Cardiovascular: no chest pain and no edema Gastrointestinal: no abdominal pain, no nausea, no vomiting, no constipation and no diarrhea/loose stools Physical Exam Constitutional: WD/WN, vitals as above Eyes: PERRL, conjunctivae normal, anicteric sclerae ENMT: external ear and nose normal, oropharynx normal Neck: trachea midline, no thyromegaly Respiratory: normal respiratory effort, lungs clear to auscultation Cardiovascular: RRR, no murmur, no edema Gastrointestinal (Abdomen): normal bowel sounds, soft, nontender, no hepatosplenomegaly Musculoskeletal: no cyanosis or clubbing, extremities motor strength 5/5 Skin: no rashes, warm and dry Neurologic: patellar DTR's 2+ bilat, sensation intact and PERRL, EOMI, accommodation nl, no face palsy, no dysarthria Psychiatric: A+Ox3, euthymic affect Lymphatic: no cervical or axillary lymphadenopathy Results & Data Results & Data ([facility]) Vital Signs (Past 12 Hours) Vital Signs Temp Pulse Resp BP Pulse Ox 10/25/19 15:19 36.8 C 76 16 107/63 97 10/25/19 08:52 120/60 10/25/19 07:50 36.7 C 82 18 154/70 H 99 Laboratory Results Laboratory Results - last 24 hr 10/22/19 10/23/19 10/25/19 06:55 05:17 05:23 WBC 6.70 RBC 2.94 L Hgb 8.8 L Hct 27.6 L MCV 93.9 MCH 29.9 MCHC 31.9 L RDW Std Deviation 50.9 H RDW Coeff of Cuco 14.9 H Plt Count 809 H MPV 8.6 Immature Gran % (Auto) 3.1 Neut % (Auto) 56.8 Lymph % (Auto) 24.5 [place] % (Auto) 11.6 Eos % (Auto) 3.7 Baso % (Auto) 0.3 Neut # (Auto) 3.80 Lymph # (Auto) 1.64 [place] # (Auto) 0.78 H Eos # (Auto) 0.25 Baso # (Auto) 0.02 Immature Gran # (Auto) 0.21 H ESR Sodium Potassium Chloride Carbon Dioxide Anion Gap BUN Creatinine Est Cr Clr Drug Dosing Est GFR ( Amer) Est GFR (Non-Af Amer) BUN/Creatinine Ratio Glucose Calcium Total Bilirubin Direct Bilirubin AST ALT Alkaline Phosphatase C-Reactive Protein Total Protein Albumin Azvgt-6-[id number] >300 H TRENTON Screen NEGATIVE Tiss Transglutamin IgA 2 EBV Capsid Ag IgG Ab >750.00 H EBV Capsid Ag IgM Ab <36.00 EBV Nuclear Antigen Ab 575.00 H EBV Antibody Interp SEE NOTE 10/25/19 10/25/19 05:23 05:23 WBC RBC Hgb Hct MCV MCH MCHC RDW Std Deviation RDW Coeff of Cuco Plt Count MPV Immature Gran % (Auto) Neut % (Auto) Lymph % (Auto) [place] % (Auto) Eos % (Auto) Baso % (Auto) Neut # (Auto) Lymph # (Auto) [place] # (Auto) Eos # (Auto) Baso # (Auto) Immature Gran # (Auto) ESR 55 H Sodium 138 Potassium 4.3 Chloride 104 Carbon Dioxide 29 Anion Gap 5.0 BUN 13 Creatinine 0.63 Est Cr Clr Drug Dosing 74.1 Est GFR ( Amer) 103.9 Est GFR (Non-Af Amer) 89.6 BUN/Creatinine Ratio 20.5 H Glucose 97 Calcium 9.0 Total Bilirubin 0.2 Direct Bilirubin < 0.1 AST 42 H ALT 160 H Alkaline Phosphatase 495 H C-Reactive Protein 2.59 H Total Protein 7.0 Albumin 2.5 L Qohpz-7-Tgovedoxxca TR[place]ON Screen Tiss Transglutamin IgA EBV Capsid Ag IgG Ab EBV Capsid Ag IgM Ab EBV Nuclear Antigen Ab EBV Antibody Interp Medications Administered Current Inpatient Medications Al Hydrox/Mg Hydrox/Simethicone (Maalox) 30 ml PO Q6H PRN PRN Reason: Dyspepsia Stop: 11/15/19 19:07 Aspirin (Ecotrin Ectab) 81 mg PO QAM COUNTS INCLUDE 234 BEDS AT THE [facility] Stop: 11/16/19 08:59 Last Admin: 10/25/19 08:56 Dose: 81 mg Documented by: Cyclobenzaprine HCl (Flexeril) 5 mg PO TID COUNTS INCLUDE 234 BEDS AT THE [facility] Stop: 11/20/19 08:59 Enoxaparin Sodium (Lovenox) 40 mg SQ QPM COUNTS INCLUDE 234 BEDS AT THE [facility] Stop: 11/15/19 20:59 Last Admin: 10/25/19 20:24 Dose: 40 mg Documented by: Escitalopram Oxalate (Lexapro Tab) 10 mg PO DAILY COUNTS INCLUDE 234 BEDS AT THE [facility] Stop: 11/16/19 08:59 Last Admin: 10/23/19 08:42 Dose: 10 mg Documented by: Fluticasone Propionate (Flonase) 2 sprays TASHI DAILY COUNTS INCLUDE 234 BEDS AT THE [facility] Stop: 11/16/19 08:59 Last Admin: 10/25/19 08:55 Dose: 2 sprays Documented by: Fluticasone/Vilanterol (Breo Ellipta 200/25 Mcg Inh) 1 puffs INH DAILY COUNTS INCLUDE 234 BEDS AT THE [facility] Stop: 11/16/19 08:59 Last Admin: 10/25/19 08:55 Dose: 1 puffs Documented by: Gabapentin (Neurontin) 100 mg PO BID COUNTS INCLUDE 234 BEDS AT THE [facility] Stop: 11/20/19 08:59 Hydralazine HCl (Hydralazine Hcl) 5 mg IV Q4H PRN PRN Reason: sBP > 200 Stop: 11/15/19 20:56 Lorazepam (Ativan) 0.5 mg PO TID PRN PRN Reason: Anxiety Stop: 11/15/19 19:07 Last Admin: 10/21/19 13:32 Dose: 0.5 mg Documented by: Lorazepam (Ativan) 1 mg PO HS PRN PRN Reason: Insomnia Stop: 11/15/19 19:16 Last Admin: 10/24/19 23:56 Dose: 1 mg Documented by: Losartan Potassium (Cozaar) 50 mg PO DAILY YULY Stop: 11/18/19 08:59 Last Admin: 10/25/19 08:56 Dose: 50 mg Documented by: Magnesium Hydroxide (Milk Of Magnesia) 30 ml PO Q6H PRN PRN Reason: Constipation Stop: 11/15/19 19:07 Melatonin (Melatonin) 3 mg PO HS YULY Stop: 11/15/19 20:59 Last Admin: 10/25/19 15:34 Dose: Not Given Documented by: Ondansetron HCl (Zofran) 4 mg IV Q6H PRN PRN Reason: Nausea Stop: 11/15/19 19:07 Oxycodone HCl (Roxicodone Immediate Rel) 5 mg PO Q4H PRN PRN Reason: Moderate Pain Stop: 10/30/19 19:18 Last Admin: 10/22/19 11:06 Dose: 5 mg Documented by: Oxycodone HCl (Roxicodone Immediate Rel) 10 mg PO Q4H PRN PRN Reason: Severe Pain Stop: 11/01/19 15:59 Last Admin: 10/25/19 19:11 Dose: 10 mg Documented by: Polyethylene Glycol (Miralax Powder Packet) 17 gm PO DAILY PRN PRN Reason: Constipation Stop: 11/15/19 19:07 Potassium Chloride (Klor-Con M20) 20 meq PO BID YULY Stop: 11/15/19 20:59 Last Admin: 10/25/19 20:24 Dose: 20 meq Documented by: Vitamin D (Vitamin D3) 1,000 units PO QAM COUNTS INCLUDE 234 BEDS AT THE [facility] Stop: 11/21/19 08:59 Last Admin: 10/25/19 08:55 Dose: 1,000 units Documented by: PG Care Time/CCT Total # of Minutes Spent Total Time Spent with Patient: Total time spent is greater than 50% in coordination of care (as documented) at patient's floor/unit and/or counseling patient: Coding Level of Care Code 49718 Subseq Hosp Care Lvl 3 Diagnoses Abnormal LFTs R94.5 Left thigh pain M79.652 Ankle pain, left M25.572 Anemia D64.9 Status post-operative repair of hip fracture Z98.890; Z87.81 Hypertension I10 Hypertension type: essential hypertension Hyperlipidemia E78.5 Asthma J45.909 History of CVA with residual deficit I69.30 Anxiety F41.9 Hydronephrosis of right kidney N13.30 Hydronephrosis, left N13.30 Vitamin D deficiency E55.9 Thrombocytosis D47.3 DVT prophylaxis Z29.9 (1) Hypertension Hypertension type: essential hypertension Qualified Code(s): I10 - Essential (primary) hypertension
[2019-10-25] MEDS: ENOXAPARIN INJ 40 MG/0.4 ML SYR SQ SCH (20:24)
[2019-10-25] MEDS: LORazepam 1 MG TAB PO PRN (23:18)
[2019-10-26 05:36] LABS: Hematocrit (blood only) 30.5 % (37-47); Hemoglobin 9.4 g/dL (12.0-16.0); Mean Corpuscular Hemoglobin 29.6 pg (25-34); Mean Corpuscular Hgb Conc 30.8 g/dL (32-36); Mean Corpuscular Volume 95.9 fL (80-100); Mean Platelet Volume 8.5 fL (7.4-10.4); Platelet Count 887 K/uL (130-400); RDW Standard Deviation 52.6 fL (36.4-46.3); Red Blood Count 3.18 M/uL (4.2-5.4); White Blood Count 7.03 K/uL (4.8-10.8)
[2019-10-26 06:06] LABS: Albumin Level 2.7 gm/dl (3.4-5.0); Calcium 9.2 mg/dl (8.5-10.1); Creatinine Clr Calc Pharmacy 71.8 ml/min; Est GFR (African American) 102.8; Est GFR (Non-African American) 88.7; Potassium 3.9 mmol/L (3.5-5.1)
[2019-10-26 06:08] LABS: Albumin Globulin Ratio 0.6 (0.9-2); Bilirubin,Total 0.3 mg/dl (0.2-1); C Reactive Protein 2.14 mg/dl (0-0.29); Globulin 4.9 gm/dl (2.5-4.0); Total Protein 7.6 gm/dl (6.4-8.2)
[2019-10-26] MEDS: POTASSIUM CHLORIDE 20 MEQ TABCR PO SCH (08:21)
[2019-10-26] MEDS: FLUTICASONE/VILANTEROL 200/25MCG 14 PUFFS/INHALER INH SCH (08:21)
[2019-10-26] MEDS: FLUTICASONE PROPIONATE NA SPR 16 GM BTL NAE SCH (08:21)
[2019-10-26] MEDS: ASPIRIN 81 MG ECTAB PO SCH (08:22)
[2019-10-26] MEDS: LOSARTAN POTASSIUM 50 MG TAB PO SCH (08:22)
[2019-10-26] MEDS: CHOLECALCIFEROL 1,000 UNITS 25 MCG TAB PO SCH (08:22)
--- NOTE | 2019-10-26 09:10 | Progress Notes ---
DATE: 10/26/2019 DIAGNOSES: 1. Reactive thrombocytosis. 2. Anemia of unknown etiology. 3. Abnormal LFTs. 4. Left thigh pain. SUBJECTIVE: It was my pleasure to visit with the patient this morning at bedside. I saw her in consultation on 10/23/2019 with precipitously rising platelet count. Clinically, she seems to be holding her own and will proceed to rehabilitation later on today. In regard to her hematologic issues, her platelet count has nadired for the most part hovering right around 800,000; however, today, she did rise a bit to 887,000. She still manifests a normocytic normochromic anemia of unclear etiology. After reviewing her most recent laboratories, there are definitely inflammatory mediators still elevated including her globulin fraction. I have asked the hospitalist to add an SPEP with immunofixation prior to discharge. I also advised the patient I would like to see her in the office in a couple of weeks once her clinical situation stabilizes specifically to ensure her platelet count has normalized and to investigate the anemia. Nursing reports no overnight issues. OBJECTIVE: GENERAL: A very pleasant 74-year-old female, in no acute distress. VITAL SIGNS: Temperature 37, pulse 82, respiratory rate 16, blood pressure 128/70. SKIN: Without rash or lesion. HEENT: Oral mucosa without erythema or ulceration. HEART: Regular rate and rhythm. LUNGS: Clear to auscultation bilaterally. ABDOMEN: Soft, nontender, nondistended. EXTREMITIES: No clubbing, cyanosis or edema. NEUROLOGICAL: Grossly intact. LABORATORY DATA: WBC count 7030, hemoglobin 9.4, platelet count 887,000. Sodium 137, potassium 3.9, chloride 103, carbon dioxide 26, creatinine 0.65, BUN 13. C-reactive protein 2.14. Alkaline phosphatase 504, ALT 135. Albumin 2.7, globulin 4.9. IMPRESSION: 1. Reactive thrombocytosis. 2. Normocytic normochromic anemia. 3. Hypoalbuminemia. 4. Increased globulin. PLAN: Again, I visited with the patient today as she is pending discharge to rehabilitation. Her platelet count seems to have nadired. I suspect once the inflammation subsides, her platelet count will normalize. This does not explain her ongoing anemia; however, and would like her to return to the office in 2-3 weeks to investigate further. I asked the hospitalist to please obtain a serum protein electrophoresis with immunofixation as she departs today, so that can be reviewed on the followup. Perhaps peripheral blood counts done every 3-4 days while in rehabilitation if her stay is to be prolonged. I have nothing further to add at this juncture and will officially sign off. Thank you very much for allowing me to participate in her care.
--- NOTE | 2019-10-26 15:09 | Progress Notes ---
DATE: 10/26/2019 GASTROINTESTINAL PROGRESS NOTE REASON FOR EVALUATION: Abnormal liver tests. HISTORY OF PRESENT ILLNESS: The patient underwent multiple blood tests to evaluate her abnormal liver tests. Her alpha-1 antitrypsin level was actually high. [place] was negative. Tissue transglutaminase was 2 with a normal IgA level. CMV serologies were negative. Since stopping Lexapro and atorvastatin, her liver tests are improving. She is scheduled for discharge today. IMPRESSION: These abnormal tests may be related to medications, which are improving at this time. It is also potentially possible that the alkaline phosphatase elevation may be coming from bones since she fractured her hip and the AST and ALT elevations are from muscle damage from her fall. Either way, they are improving and no further intervention is necessary at this time.
[2019-10-29 05:44] LABS: CMV IgG Antibody >10.00 U/mL; CMV IgM Antibody <30.00 AU/mL
== END 2019-10-26 16:05 | DRG 948 ==
LOC: ED 14:24 → 3E 14:24 → SUATTDRO 17:25 → 3E 18:09 → SUATTDRO 10-18 16:53